=== PATIENT | female | born 1935 | race Caucasian/White ===

== ENCOUNTER 2017-04-05 10:20 | Outpatient (CLI) | payer MEDICARE, OTHER ==
[2017-04-05 14:21] LABS: HEMOGLOBIN A1C 1.01 g/dL
[2017-04-05 14:27] LABS: ALBUMIN/GLOBULIN RATIO 1.4 (1.0-2.2); BILIRUBIN,TOTAL 0.6 mg/dL (0.2-1.0); CALCIUM 9.2 mg/dL (8.5-10.3); CREATININE 0.8 mg/dL (0.4-1.0); POTASSIUM 3.5 mmol/L (3.5-5.0); TOTAL PROTEIN 7.1 g/dL (6.7-8.2)
== END 2017-04-05 10:21 | disposition home or self-care (01) ==
LOC: LAB.WCP 10:20
PROVIDERS: ATTEND Family Medicine
DX: E11.51 Type 2 diabetes mellitus with diabetic peripheral angiopathy without gangrene (principal); E78.00 Pure hypercholesterolemia, unspecified; I10 Essential (primary) hypertension
CPT/HCPCS: 36415; 80053; 83036

== ENCOUNTER 2017-06-07 08:00 | Outpatient (CLI) | payer MEDICARE, OTHER ==
[2017-06-07 13:31] LABS: ALBUMIN/GLOBULIN RATIO 1.3 (1.0-2.2); BILIRUBIN,TOTAL 0.6 mg/dL (0.2-1.0); CALCIUM 9.3 mg/dL (8.5-10.3); CREATININE 0.7 mg/dL (0.4-1.0); POTASSIUM 4.8 mmol/L (3.5-5.0); TOTAL PROTEIN 6.8 g/dL (6.7-8.2)
[2017-06-07 14:06] LABS: HEMOGLOBIN A1C 0.82 g/dL
== END 2017-06-07 08:01 | disposition home or self-care (01) ==
LOC: LAB.WCP 08:00
PROVIDERS: ATTEND Family Medicine
DX: E11.51 Type 2 diabetes mellitus with diabetic peripheral angiopathy without gangrene (principal); I10 Essential (primary) hypertension
CPT/HCPCS: 36415; 80053; 82043; 83036

== ENCOUNTER 2018-03-29 10:20 | Outpatient (CLI) | payer MEDICARE, OTHER ==
[2018-03-29 12:36] LABS: BASOPHILS # (AUTO) 0.1 10^3/uL (0.0-0.1); BASOPHILS % (AUTO) 0.8 %; EOSINOPHILS # (AUTO) 0.2 10^3/uL (0.0-0.7); EOSINOPHILS % (AUTO) 1.7 %; HGB - HEMOGLOBIN 15.5 g/dL (12.0-16.0); LYMPHOCYTES # (AUTO) 2.9 10^3/uL (1.5-3.5); LYMPHOCYTES % (AUTO) 28.1 %; MEAN CORPUSCULAR HEMOGLOBIN 28.4 pg (27.0-31.0); MEAN CORPUSCULAR VOLUME 83.5 fL (81.0-99.0); MEAN PLATELET VOLUME 7.4 fL (7.9-10.8); MONOCYTES # (AUTO) 0.7 10^3/uL (0.0-1.0); NEUTROPHILS # (AUTO) 6.4 10^3/uL (1.5-6.6); NEUTROPHILS % (AUTO) 62.4 %; PLT - PLATELET COUNT 213 10^3/uL (130-450); RED BLOOD COUNT 5.45 10^6/uL (4.20-5.40); RED CELL DISTRIBUTION WIDTH 15.3 % (12.0-15.0); WHITE BLOOD COUNT 10.2 x10^3/uL (4.8-10.8)
[2018-03-29 12:45] LABS: ALBUMIN 4.1 g/dL (3.2-5.5); ALBUMIN/GLOBULIN RATIO 1.4 (1.0-2.2); ALKALINE PHOSPHATASE 95 IU/L (42-121); ALT ALANINE AMINOTRANSFERASE 23 IU/L (10-60); AST ASPARTATE AMINOTRANSFERASE 23 IU/L (10-42); BILIRUBIN,TOTAL 0.7 mg/dL (0.2-1.0); BUN - BLOOD UREA NITROGEN 27 mg/dL (6-20); CALCIUM 9.4 mg/dL (8.5-10.3); CARBON DIOXIDE - CO2 23 mmol/L (21-32); CHLORIDE 105 mmol/L (101-111); CHOL/HDL RATIO 3.6 (<4.4); CHOLESTEROL 207 mg/dL; CREATININE 0.9 mg/dL (0.4-1.0); GFR - MDRD 60 (>89); GLUCOSE 146 mg/dL (70-100); HDL CHOLESTEROL 57 mg/dL; LDL CHOLESTEROL,CALCULATED 119 mg/dL; LDL/HDL RATIO 2.1 (<4.4); SODIUM 140 mmol/L (135-145); VLDL CHOLESTEROL 31 mg/dL
== END 2018-03-29 10:21 | disposition home or self-care (01) ==
LOC: LAB.WCP 10:20
PROVIDERS: ATTEND Family Medicine
DX: M51.86 Other intervertebral disc disorders, lumbar region (principal); E11.51 Type 2 diabetes mellitus with diabetic peripheral angiopathy without gangrene; I10 Essential (primary) hypertension; E03.9 Hypothyroidism, unspecified; I25.10 Atherosclerotic heart disease of native coronary artery without angina pectoris
CPT/HCPCS: 36415; 80053; 80061; 83721; 84443; 85025

== ENCOUNTER 2018-05-11 14:30 | Outpatient (CLI) | payer MEDICARE, OTHER ==
[2018-05-11 19:40] LABS: HB2 TOTAL 15.4 g/dL; HEMOGLOBIN A1C 0.77 g/dL; HEMOGLOBIN A1C % 6.7 % (4.6-6.2)
== END 2018-05-11 14:31 | disposition home or self-care (01) ==
LOC: LAB.WCP 14:30
PROVIDERS: ATTEND Family Medicine
DX: E11.51 Type 2 diabetes mellitus with diabetic peripheral angiopathy without gangrene (principal)
CPT/HCPCS: 36415; 83036

== ENCOUNTER 2018-08-02 15:36 | Outpatient (CLI) | payer MEDICARE, OTHER | END 2018-08-02 15:37 | disposition critical access hospital (66) | LOC: EMS 15:36 | PROVIDERS: ATTEND Surgery | DX: R41.0 Disorientation, unspecified (principal) | CPT/HCPCS: A0425; A0427 ==

== ENCOUNTER 2018-08-02 15:57 | Inpatient (IN) | payer MEDICARE, OTHER ==
--- NOTE | 2018-08-02 16:23 | ED Physician Documentation ---
PD HPI ALTERED MENTAL STATUS - Stated complaint Stated Complaint: AMS - Chief complaint Chief Complaint: Neuro - History obtained from History obtained from: Patient, EMS - History of Present Illness Timing - onset: Unknown (last known normal last night) Timing - details: Gradual onset Quality / character: Less responsive Associated symptoms: No: Fever, Headache, Stiff neck, Dyspnea, Cough, NVD, Urinary sx, General weakness, Focal weakness, Seizure activity, Syncope Contributing factors: No: Anticoagulated, Diabetic, Cancer, COPD, New medication, Recent med change, Recent illness, Recent injury, Intoxicated, Substance abuse, Known psych illness, Known dementia Basline status: Alert and oriented X 3, Ambulatory, Independent, Other (legally blind, uses a walker) 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: 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 (97) Similar symptoms before: Has not had sx before Recently seen: Not recently seen Review of Systems Unable to obtain: AMS Constitutional: denies: Fever, Chills Throat: denies: Sore throat Cardiac: denies: Chest pain / pressure GI: reports: Vomiting (once in the ambulance) : denies: Dysuria Skin: denies: Rash Musculoskeletal: denies: Neck pain, Back pain Neurologic: denies: Headache PD PAST MEDICAL HISTORY - Past Medical History Past Medical History: Yes Endocrine/Autoimmune: Type 2 diabetes, HyPOthyroidism - Present Medications Home Medications: Ambulatory Orders Medication Instructions Recorded Confirmed Aspirin 08/02/18 Atenolol 25 mg PO 08/02/18 Insulin Aspart [NovoLOG] 5 unit SUBQ TIDWM 08/02/18 08/02/18 Insulin Glargine [Lantus Solostar] 08/02/18 Levothyroxine Sodium [Synthroid] 25 mcg PO 08/02/18 Losartan [Cozaar] 50 mg PO DAILY 08/02/18 08/02/18 PARoxetine HCl [Paroxetine HCl] 10 mg PO 08/02/18 08/02/18 Sitagliptin Phosphate [Januvia] 25 mg PO 08/02/18 - Allergies Allergies/Adverse Reactions: Allergies Allergy/AdvReac Type Severity Reaction Status Date / Time No Known Drug Allergies Allergy Verified 08/02/18 16:05 - Living Situation Living Situation: reports: With family Living Arrangement: reports: At home - Social History Does the pt have substance abuse?: No - Family History Family history: reports: Non contributory PD ED PE NORMAL - Vitals Vital signs reviewed: Yes - General General: No acute distress, Other (alert, oriented to person and place only) - HEENT HEENT: PERRL, Moist mucous membranes - Neck Neck: Supple, no meningeal sign - Cardiac Cardiac: RRR - Respiratory Respiratory: No respiratory distress, Clear bilaterally - Abdomen Abdomen: Soft, Non tender, Non distended - Back Back: No spinal TTP - Derm Derm: Warm and dry - Extremities Extremities: No edema - Neuro Neuro: No motor deficit, No sensory deficit, Other (alert) Results - Vitals Vitals: Vital Signs - 24 hr 08/02/18 08/02/18 08/02/18 15:59 17:49 18:07 Temperature 37.3 C Heart Rate 88 77 77 Respiratory 18 16 17 Rate Blood Pressure 178/81 H 190/88 H 168/71 H O2 Saturation 97 97 96 Oxygen O2 Source Room air - Labs Labs: Laboratory Tests 08/02/18 08/02/18 08/02/18 16:20 16:20 16:20 WBC 11.4 H RBC 4.94 Hgb 14.1 Hct 43.0 MCV 87.1 MCH 28.6 MCHC 32.8 RDW 14.7 Plt Count 150 MPV 6.5 L Neut # (Auto) 9.5 H Lymph # (Auto) 1.1 L [place] # (Auto) 0.8 Eos # (Auto) 0.0 Baso # (Auto) 0.1 Absolute Nucleated RBC 0.00 Nucleated RBC % 0.0 Sodium 135 Potassium 4.1 Chloride 98 L Carbon Dioxide 27 Anion Gap 10.0 BUN 23 H Creatinine 0.7 Estimated GFR (MDRD) 80 L Glucose 246 H Glycated Hemoglobin Estim Average Glucose Lactic Acid 2.0 Calcium 8.9 Total Bilirubin 1.3 H AST 28 ALT 28 Alkaline Phosphatase 84 Troponin I Total Protein 6.4 L Albumin 3.8 Globulin 2.6 Albumin/Globulin Ratio 1.5 Lipase 25 TSH Free T4 Urine Color Urine Clarity Urine pH Ur Specific [place] Urine Protein Urine Glucose (UA) Urine Ketones Urine Occult Blood Urine Nitrite Urine Bilirubin Urine Urobilinogen Ur Leukocyte Esterase Urine RBC Urine WBC Ur Squamous Epith Cells Urine Bacteria Ur Microscopic Review Urine Culture Comments 08/02/18 08/02/18 08/02/18 16:20 16:20 16:20 WBC RBC Hgb Hct MCV MCH MCHC RDW Plt Count MPV Neut # (Auto) Lymph # (Auto) [place] # (Auto) Eos # (Auto) Baso # (Auto) Absolute Nucleated RBC Nucleated RBC % Sodium Potassium Chloride Carbon Dioxide Anion Gap BUN Creatinine Estimated GFR (MDRD) Glucose Glycated Hemoglobin 6.9 H Estim Average Glucose 151 H Lactic Acid Calcium Total Bilirubin AST ALT Alkaline Phosphatase Troponin I < 0.04 Total Protein Albumin Globulin Albumin/Globulin Ratio Lipase TSH 9.36 H Free T4 0.97 Urine Color Urine Clarity Urine pH Ur Specific [place] Urine Protein Urine Glucose (UA) Urine Ketones Urine Occult Blood Urine Nitrite Urine Bilirubin Urine Urobilinogen Ur Leukocyte Esterase Urine RBC Urine WBC Ur Squamous Epith Cells Urine Bacteria Ur Microscopic Review Urine Culture Comments 08/02/18 16:53 WBC RBC Hgb Hct MCV MCH MCHC RDW Plt Count MPV Neut # (Auto) Lymph # (Auto) [place] # (Auto) Eos # (Auto) Baso # (Auto) Absolute Nucleated RBC Nucleated RBC % Sodium Potassium Chloride Carbon Dioxide Anion Gap BUN Creatinine Estimated GFR (MDRD) Glucose Glycated Hemoglobin Estim Average Glucose Lactic Acid Calcium Total Bilirubin AST ALT Alkaline Phosphatase Troponin I Total Protein Albumin Globulin Albumin/Globulin Ratio Lipase TSH Free T4 Urine Color DARK YELLOW Urine Clarity HAZY Urine pH 5.5 Ur Specific [place] >=1.030 H Urine Protein NEGATIVE Urine Glucose (UA) 500 H Urine Ketones 15 H Urine Occult Blood NEGATIVE Urine Nitrite POSITIVE H Urine Bilirubin NEGATIVE Urine Urobilinogen 0.2 (NORMAL) Ur Leukocyte Esterase NEGATIVE Urine RBC 0-5 Urine WBC 4-5 Ur Squamous Epith Cells RARE Squamous Urine Bacteria Many H Ur Microscopic Review INDICATED Urine Culture Comments INDICATED - Rads (name of study) head CT Radiology: Prelim report reviewed, EMP read contemporaneously, See rad report (Intermediate density 3.1 cm mass suggested in the right occipital parietal lobe with minor surrounding vasogenic edema. No midline shift. Appearance is nonspecific on CT. MRI with and without contrast suggested for more definitive evaluation. 2. Cystic change in the right anoop presumably related to old lacunar infarct. 3. Moderate senescent changes seen. ) PD MEDICAL DECISION MAKING - ED course Complexity details: reviewed results, re-evaluated patient, considered differential, d/w patient, d/w family, d/w product consultant ED course: 83-year-old female presents to the emergency department today with altered mental status. Appears to be likely secondary to a UTI with leukocytosis. Given Rocephin and IV fluids. Her mental status did improve. Head CT reveals a possible Occipital intracranial mass. I doubt that this is the cause of her acutely altered mental status. This will be better characterized on MRI. Family states they are unsure if she would want to do chemotherapy and surgery if it was a cancerous tumor. Discussed the case with Dr. Melgar, hospitalist who accepts This document was made in part using voice recognition software. While efforts are made to proofread this document, sound alike and grammatical errors may occur. Departure - Departure Disposition: [facility] DC/Xfer Clinical Impression: Brain mass Altered mental status Qualifiers: Altered mental status type: unspecified Qualified Code(s): R41.82 - Altered mental status, unspecified UTI (urinary tract infection) Qualifiers: Urinary tract infection type: site unspecified Hematuria presence: without hematuria Qualified Code(s): N39.0 - Urinary tract infection, site not specified Condition: Stable Discharge Date/Time: 08/02/18 19:30
[2018-08-02 16:31] LABS: BASOPHILS # (AUTO) 0.1 10^3/uL (0.0-0.1); BASOPHILS % (AUTO) 0.5 %; EOSINOPHILS % (AUTO) 0.1 %; HGB - HEMOGLOBIN 14.1 g/dL (12.0-16.0); LYMPHOCYTES # (AUTO) 1.1 10^3/uL (1.5-3.5); LYMPHOCYTES % (AUTO) 9.2 %; MEAN CORPUSCULAR HEMOGLOBIN 28.6 pg (27.0-31.0); MEAN CORPUSCULAR HGB CONC 32.8 g/dL (32.0-36.0); MEAN CORPUSCULAR VOLUME 87.1 fL (81.0-99.0); MEAN PLATELET VOLUME 6.5 fL (7.9-10.8); MONOCYTES # (AUTO) 0.8 10^3/uL (0.0-1.0); MONOCYTES % (AUTO) 7.1 %; NEUTROPHILS # (AUTO) 9.5 10^3/uL (1.5-6.6); NEUTROPHILS % (AUTO) 83.1 %; PLT - PLATELET COUNT 150 10^3/uL (130-450); RED BLOOD COUNT 4.94 10^6/uL (4.20-5.40); RED CELL DISTRIBUTION WIDTH 14.7 % (12.0-15.0); WHITE BLOOD COUNT 11.4 x10^3/uL (4.8-10.8)
[2018-08-02 16:45] LABS: ALBUMIN 3.8 g/dL (3.2-5.5); ALBUMIN/GLOBULIN RATIO 1.5 (1.0-2.2); BILIRUBIN,TOTAL 1.3 mg/dL (0.2-1.0); CALCIUM 8.9 mg/dL (8.5-10.3); CREATININE 0.7 mg/dL (0.4-1.0); TOTAL PROTEIN 6.4 g/dL (6.7-8.2)
[2018-08-02 17:05] LABS: BILIRUBIN,URINE NEGATIVE (NEGATIVE); GLUCOSE, URINE (UA) 500 mg/dL (NEGATIVE); KETONES,URINE (UA) 15 mg/dL (NEGATIVE); LEUKOCYTE ESTERASE, URINE NEGATIVE (NEGATIVE); NITRITE,URINE POSITIVE (NEGATIVE); OCCULT BLOOD,URINE NEGATIVE (NEGATIVE); PH,URINE 5.5 PH (5.0-7.5); PROTEIN,URINE NEGATIVE (NEGATIVE); UROBILINOGEN,URINE 0.2 (NORMAL) E.U./dL (NORMAL)
[2018-08-02 17:07] LABS: CLARITY,URINE HAZY (CLEAR)
[2018-08-02 17:07] LABS: THYROID STIMULATING HORMONE 9.36 uIU/mL (0.34-5.60)
[2018-08-02 17:09] LABS: FREE T4 (FREE THYROXINE) 0.97 ng/dL (0.58-1.64)
[2018-08-02 17:16] LABS: BACTERIA,URINE Many /HPF (None Seen); RBC,URINE 0-5 /HPF (0-5); SQUAMOUS EPITHELIAL CELL,UR RARE Squamous (<= Few)
--- NOTE | 2018-08-02 17:36 | CT Report ---
Reason: altered mental status Procedure Date: 08/02/2018 Accession Number: [id number] / [id number] Procedure: CT - Head W/O CPT Code: FULL RESULT: EXAM: CT HEAD EXAM DATE: 08/02/2018 05:17 PM. CLINICAL HISTORY: Transient alteration in awareness. COMPARISON: None. TECHNIQUE: Multiaxial CT images were obtained from the foramen magnum to the vertex. Reformats: Sagittal and coronal. IV contrast: None. In accordance with CT protocol optimization, one or more of the following dose reduction techniques were utilized for this exam: automated exposure control, adjustment of mA and/or KV based on patient size, or use of iterative reconstructive technique. FINDINGS: Parenchyma: There is an intermediate density mass like process suggested in the right occipital parietal lobe measuring 3.1 x 2.7 cm. It is unclear if the mass is intra-axial or extra-axial. Some minor surrounding cytotoxic edema is seen superimposed over diffuse chronic microvascular ischemic changes. Cystic changes seen in the right anoop which may be related to old lacunar infarct. The remainder parrish-white differentiation is intact. There is no midline shift. Extraaxial Spaces: Normal for age. No subdural or epidural collections identified. Ventricles: Normal in size and position. Sinuses and Orbits: Imaged paranasal sinuses, orbits, and mastoids show no significant abnormality. Bones: No evidence of fracture or calvarial defect. Other: None. IMPRESSION: 1. Intermediate density 3.1 cm mass suggested in the right occipital parietal lobe with minor surrounding vasogenic edema. No midline shift. Appearance is nonspecific on CT. MRI with and without contrast suggested for more definitive evaluation. 2. Cystic change in the right anoop presumably related to old lacunar infarct. 3. Moderate senescent changes seen. RADIA
[2018-08-02] MEDS ORDERED: cefTRIAXone 1 GM VIAL IVP STA (17:42)
[2018-08-02] MEDS ORDERED: ONDANSETRON 4 MG/2 ML VIAL IVP PRN (18:43)
[2018-08-02] MEDS ORDERED: ACETAMINOPHEN 325 MG TABLET PO PRN ×2 (18:43→21:13)
[2018-08-02] MEDS ORDERED: cloNIDine 0.1 MG TABLET PO PRN (18:49)
[2018-08-02] MEDS ORDERED: SODIUM CHLORIDE 0.9% 1,000 ML IV SCH (19:00)
--- NOTE | 2018-08-02 19:14 | HISTORY & PHYSICAL EXAMINATION ---
Chief Complaint - Chief Complaint Chief Complaint: confused History of Present Illness - History of Present Illness HPI Comment/Other: Ms Aviles is a 83-year-old female with a PMH significant for hx of CAD with stent, TIA, HTN, hypothyroidism, DM2, obese, who presents to the emergency department today with altered mental status. Pt is confused, and poor historian. Pt's daughter in law at bedside provide some history. She report pt became very confused recently. She has no headache, fever, chill, chest pain, shortness of breath, abdominal pain. UA reveal UTI. Head CT reveals a possible Occipital intracranial mass. She report they has no knowledge of pt has mass in her brain. This will be better characterized on MRI. Daughter in law states" we are unsure if she would want to do chemotherapy and surgery even if it was a cancerous tumor." Pt is afebrile, and has slight elevated blood pressure otherwise she is hemodynamic stable. History - Past Medical History Cardiovascular: reports: Hypertension, [place] Respiratory: reports: None Neuro: reports: TIA Endocrine/Autoimmune: reports: Type 2 diabetes, HyPOthyroidism GI: reports: Chronic diarrhea, Chronic constipation SHANK TURNER: reports: None : reports: Incontinence HEENT: reports: Macular degeneration Musculoskeletal: reports: Osteoarthritis Derm: reports: None MRSA Hx?: No - Past Surgical History General: reports: Cholecystectomy, Appendectomy, Colonoscopy Ortho: reports: Hip replacement, Other /SHANK TURNER: reports: section, Hysterectomy Cardiovascular: reports: Coronary stent HEENT: reports: Tonsil/Adenoidectomy - Family & Social History Family History: Mother: , Father: Family History Comment/Other: pt is living at her home with his son at [facility]. Living arrangement: At home Living Situation: With family - POLST Patient has POLST: Yes POLST Status: DNR Meds/Allgy - Home Medications Home Medications: Ambulatory Orders Medication Instructions Recorded Confirmed Aspirin 08/02/18 Atenolol 25 mg PO 08/02/18 Insulin Aspart [NovoLOG] 5 unit SUBQ TIDWM 08/02/18 08/02/18 Insulin Glargine [Lantus Solostar] 08/02/18 Levothyroxine Sodium [Synthroid] 25 mcg PO 08/02/18 Losartan [Cozaar] 50 mg PO DAILY 08/02/18 08/02/18 PARoxetine HCl [Paroxetine HCl] 10 mg PO 08/02/18 08/02/18 Sitagliptin Phosphate [Januvia] 25 mg PO 08/02/18 - Allergies Allergies/Adverse Reactions: Allergies Allergy/AdvReac Type Severity Reaction Status Date / Time No Known Drug Allergies Allergy Verified 08/02/18 16:05 Review of Systems - Constitutional Constitutional: denies: Fever, Chills, Poor appetite, Diaphoresis, Night sweats - Eyes Eyes: denies: Pain, Irritation, Blurred vision, Field loss, Vision loss, Dipolpia - Ears, Nose & Throat Ears, Nose & Throat: denies: Ear pain, Hearing loss, Tinnitus, Vertigo, Nosebleeds, Nasal congestion, Sore throat, Bleeding gums - Cardiovascular Cariovascular: denies: Irregular heart rate, Palpitations, Chest pain, Edema, Lightheadedness, Syncope, Exertional dyspnea, Decr. exercise tolerance - Respiratory Respiratory: denies: Cough, Sputum production, Wheezing, Snoring, Hemoptysis, Orthopnea, SOB at rest, SOB with exertion - Gastrointestinal Gastrointestinal: denies: Abdominal pain, Abdominal distention, Constipation, Diarrhea, Change in bowel habits, Rectal bleeding, Black stools, Bloody stools, Nausea, Vomiting, Coffee grounds emesis - Genitourinary Genitourinary: denies: Dysuria, Frequency, Urgency, Hematuria, Incontinence, Flank pain, Urethral discharge - Musculoskeletal Musculoskeletal: denies: Muscle pain, Back pain, Muscle aches, Stiffness, Limited range of motion, Muscle weakness, Gout, Joint pain - Integumentary Integumentary: denies: Rash, Pruritis, Lesions, Dryness, Lumps, Pigment changes - Neurological Neurological: reports: General weakness. denies: Focal weakness, Headache, Dizziness, Numbness, Memory problems, Pre-existing deficit, Abnormal gait, Seizures, Incoordination, Slurred speech - Psychiatric Psychiatric: denies: Depression, Anxiety, Suicidal, Delusions, Hallucinations - Endocrine Endocrine: denies: Polyuria, Polydypsia, Polyphagia, Intolerance to cold - Hematologic/Lymphatic Hematologic/Lymphatic: denies: Anemia, Bruising, Petechiae, Lymphadenopathy Prior Level of Functionality: [pt is living with her son Exam - Vital Signs Reviewed Vital Signs: Yes Vital Signs: Vital Signs x48h Temp Pulse Resp BP Pulse Ox 08/02/18 18:07 77 17 168/71 H 96 08/02/18 17:49 77 16 190/88 H 97 08/02/18 15:59 37.3 C 88 18 178/81 H 97 - Physical Exam General Appearance: positive: No acute distress, Alert. negative: Lethargic Eyes Bilateral: positive: Normal inspection, PERRL, No lid inflammation, Conjunctivae nml ENT: positive: ENT inspection nml, Pharynx nml, No signs of dehydration. negative: Purulent nasal drainage, Pharyngeal erythema, Oral lesions Neck: positive: Nml inspection, Thyroid nml, No JVD, Trachea midline. negative: Thyromegaly, Lymphadenopathy (R), Lymphadenopathy (L), Stiff neck, Swelling/bruising, Tracheal deviation Respiratory: positive: Chest non-tender, No respiratory distress, Breath sounds nml. negative: Wheezes, Rales, Rhonchi Cardiovascular: positive: Regular rate & rhythm, No murmur, No gallop. negative: Irregularly irregular, Extrasystoles, Tachycardia, Bradycardia, JVD present, Systolic murmur, Diastolic murmur Peripheral Pulses: positive: 2+ Abdomen: positive: Non-tender, No organomegaly, Nml bowel sounds, No distention. negative: Tenderness, Guarding, Rebound Back: positive: Nml inspection. negative: CVA tenderness (R), CVA tenderness (L) Skin: positive: Color nml, No rash, Warm, Dry. negative: Cyanosis, Diaphoresis, Pallor Extremities: positive: Non-tender, Nml appearance. negative: Calf tenderness, Joint swelling, Juliana's sign/cords Neurologic/Psychiatric: positive: Disoriented to person, Disoriented to place, Disoriented to time. negative: Weakness, Sensory loss, Facial droop, Slurred/abnml speech, Depressed mood/affect Sepsis Event Note (H) - Evaluation Current Stage of Sepsis: Sepsis Possible source of Sepsis: positive: Genitourinary - Sepsis Criteria Sepsis Criteria: WBC count greater than 12,000 or less than 4000, HERPETOLOGIST: altered consciousness (unrelated to primary neuro pathology) Conclusion/Plan - Problem List (1) Altered mental status Conclusion/Plan: pt present acute AMS, it may be secondary to positive UTI and elevated WBC. However CT of head also reveals 3.1 cm brain Mass, it seems chronic and quite long time medical condition even pt's family did not know this before. treat under UTI with Rocephin, followup UA culture. neur check tele, vital monitor MRI of brain Qualifiers: Altered mental status type: unspecified Qualified Code(s): R41.82 - Altered mental status, unspecified (2) UTI (urinary tract infection) Conclusion/Plan: will treat with antibiotics of Rocephin, and followup UA culture and sensitivity study. Qualifiers: Urinary tract infection type: site unspecified Hematuria presence: without hematuria Qualified Code(s): N39.0 - Urinary tract infection, site not specified (3) Brain mass Conclusion/Plan: family is unknown pt has this medical condition, and unsure they will continue pursue further intervention even if it is odd result MRI of brain, will followup and discuss with pt and pt's family (4) HTN (hypertension) Conclusion/Plan: slight elevated BP, family state pt may not take her home BP meds pharmacy will reconcile home BP meds, add Clonidine as PRN (5) DM2 (diabetes mellitus, type 2) Conclusion/Plan: slight elevated blood glucose, pharmacy will reconcile home insulin slide scale, check A1C hypoglycemia, and ACHS (6) Hypothyroidism Conclusion/Plan: elevate TSH, will check T4, and reconcile home synthyroxine (7) Hx of coronary artery disease Conclusion/Plan: Troponin is negative, no chest pain reported. tele, vital monitor resume home Aspirin control of BP (8) Do not intubate, cardiopulmonary resuscitation (CPR)-only code status Conclusion/Plan: pt's family clearly state pt is DNR status - Lab Results Fish Bones: 08/03/18 05:30 08/03/18 05:30 Core Measures - Anticipated LOS I expect patient to be DC'd or transferred within 96 hours.: Yes - DVT/VTE - Prophylaxis VTE/DVT Device ordered at admit?: Yes VTE/DVT Prophylaxis med ordered at admit?: Yes
[2018-08-02 19:16] LABS: HB2 TOTAL 15.1 g/dL; HEMOGLOBIN A1C 0.79 g/dL; HEMOGLOBIN A1C % 6.9 % (4.6-6.2)
[2018-08-02] MEDS: SODIUM CHLORIDE FLUSH 0.9% 10 ML SYRINGE IVP PRN (20:47)
[2018-08-02] MEDS ORDERED: FAMOTIDINE 20 MG TABLET PO SCH (21:00)
[2018-08-02] MEDS ORDERED: INSULIN ASPART 300 UNIT/3 ML PEN SUBQ SCH (21:00)
[2018-08-02] MEDS ORDERED: INSULIN GLARGINE 300 UNIT/3 ML PEN SUBQ SCH (21:00)
[2018-08-02] MEDS: LOSARTAN 50 MG TABLET PO SCH (21:18)
[2018-08-02] MEDS: NYSTATIN POWDER 15 GM TOP SCH (22:26)
[2018-08-02] MEDS ORDERED: MIN OIL/DIMETHICON/COCONUT OIL 92 GM TUBE TOP PRN (23:27)
[2018-08-03] MEDS: SODIUM CHLORIDE FLUSH 0.9% 10 ML SYRINGE IVP SCH ×3 (01:21→16:25)
[2018-08-03 05:56] LABS: BASOPHILS # (AUTO) 0.1 10^3/uL (0.0-0.1); BASOPHILS % (AUTO) 0.5 %; EOSINOPHILS % (AUTO) 0.1 %; HGB - HEMOGLOBIN 13.1 g/dL (12.0-16.0); LYMPHOCYTES # (AUTO) 1.7 10^3/uL (1.5-3.5); LYMPHOCYTES % (AUTO) 16.2 %; MEAN CORPUSCULAR HEMOGLOBIN 29.2 pg (27.0-31.0); MEAN CORPUSCULAR HGB CONC 33.4 g/dL (32.0-36.0); MEAN CORPUSCULAR VOLUME 87.5 fL (81.0-99.0); MEAN PLATELET VOLUME 6.4 fL (7.9-10.8); MONOCYTES # (AUTO) 0.8 10^3/uL (0.0-1.0); MONOCYTES % (AUTO) 7.9 %; NEUTROPHILS # (AUTO) 7.9 10^3/uL (1.5-6.6); NEUTROPHILS % (AUTO) 75.3 %; PLT - PLATELET COUNT 166 10^3/uL (130-450); RED BLOOD COUNT 4.47 10^6/uL (4.20-5.40); RED CELL DISTRIBUTION WIDTH 14.5 % (12.0-15.0); WHITE BLOOD COUNT 10.5 x10^3/uL (4.8-10.8)
[2018-08-03 06:06] LABS: ALBUMIN 3.3 g/dL (3.2-5.5); ALBUMIN/GLOBULIN RATIO 1.5 (1.0-2.2); BILIRUBIN,TOTAL 1.4 mg/dL (0.2-1.0); CALCIUM 8.5 mg/dL (8.5-10.3); CREATININE 0.7 mg/dL (0.4-1.0); MAGNESIUM 1.7 mg/dL (1.7-2.8); TOTAL PROTEIN 5.5 g/dL (6.7-8.2)
[2018-08-03] MEDS ORDERED: LEVOTHYROXINE 25 MCG TABLET PO SCH (07:00)
[2018-08-03] MEDS: LOSARTAN 50 MG TABLET PO SCH (08:33)
[2018-08-03] MEDS: NYSTATIN POWDER 15 GM TOP SCH ×2 (08:33→20:11)
[2018-08-03] MEDS: FAMOTIDINE 20 MG TABLET PO SCH (08:33)
[2018-08-03] MEDS: ENOXAPARIN 40 MG/0.4 ML SYRINGE SUBQ SCH (08:33)
[2018-08-03] MEDS: POLYETHYLENE GLYCOL 3350 17 GM PACKET PO SCH (08:33)
[2018-08-03] MEDS: INSULIN ASPART 300 UNIT/3 ML PEN SUBQ SCH ×4 (08:34→20:36)
[2018-08-03] MEDS ORDERED: cefTRIAXone 1 GM VIAL IVP SCH (09:00)
[2018-08-03] MEDS ORDERED: SODIUM CHLORIDE 0.9% 1,000 ML IV SCH (09:00)
[2018-08-03] MEDS ORDERED: LOSARTAN 50 MG TABLET PO SCH (09:00)
--- NOTE | 2018-08-03 09:22 | XRAY Report ---
Reason: SOB Procedure Date: 08/03/2018 Accession Number: [id number] / [id number] Procedure: XR - Chest 1 View X-Ray CPT Code: 88778 FULL RESULT: EXAM: CHEST RADIOGRAPHY EXAM DATE: 08/03/2018 08:52 AM. CLINICAL HISTORY: Shortness of breath. COMPARISON: None. TECHNIQUE: 1 view. FINDINGS: Lungs/Pleura: Mild pulmonary vascular congestion. Mild interstitial edema. The right costophrenic recess is sharp. The left costophrenic recess is blunted. No pneumothorax. No focal opacities evident. Mediastinum: Within exam limitations, the cardiomediastinal contour is normal. Other: Multilevel thoracic spondylosis. Degenerative changes in the acromioclavicular joints. IMPRESSION: 1. Mild pulmonary vascular congestion and mild interstitial edema. 2. No focal bronchial consolidation. 3. Other chronic degenerative changes. RADIA
[2018-08-03] MEDS: CEFEPIME 2 GM in SODIUM CHLORIDE 0.9% MINIBAG 100 ML IV SCH ×2 (10:58→20:11)
--- NOTE | 2018-08-03 11:12 | PROVIDER PROGRESS NOTE ---
Subjective - Prog Note Date Prog Note Date: 08/03/18 - Subjective Pt reports feeling: Worse Subjective: pt is still confused. pt also has fever today morning. family report pt is not better. pt is not reported to have chest pain, shortness of breath, headache. Current Medications - Current Medications Current Medications: Active Medications Acetaminophen (Tylenol) 650 mg PO Q4HR PRN PRN Reason: Pain or Fever > 38C (100.4F) Clonidine HCl (Catapres) 0.1 mg PO BID PRN PRN Reason: Hypertensive Emergency Enoxaparin Sodium (Lovenox) 40 mg SUBQ DAILY [facility] Last Admin: 08/03/18 08:33 Dose: 40 mg Famotidine (Pepcid) 20 mg PO DAILY [facility] Last Admin: 08/03/18 08:33 Dose: 20 mg Cefepime HCl 2 gm/ Sodium (Chloride) 100 mls @ 200 mls/hr IV BID [facility] Last Admin: 08/03/18 10:58 Dose: 200 mls/hr Insulin Aspart (Novolog) 2 - 10 unit SUBQ 0800,1200,1700,2100 [facility]; Protocol Last Admin: 08/03/18 08:34 Dose: 4 unit Insulin Glargine (Lantus Solostar) 10 unit SUBQ QPM [facility] Levothyroxine Sodium (Synthroid) 37.5 mcg PO QDAC [facility] Losartan Potassium (Cozaar) 50 mg PO DAILY [facility] Last Admin: 08/03/18 08:33 Dose: 50 mg Mineral Oil (Cavilon) 1 applic TOP PRN PRN PRN Reason: Skin Care Nystatin (Nystop) 0 applic TOP BID [facility] Last Admin: 08/03/18 08:33 Dose: 1 applic Ondansetron HCl (Zofran Inj) 4 mg IVP Q6HR PRN PRN Reason: Nausea / Vomiting Polyethylene Glycol (Miralax) 17 gm PO DAILY [facility] Last Admin: 08/03/18 08:33 Dose: 17 gm Saccharomyces Boulardii (Florastor) 250 mg PO BIDWM [facility] Sodium Chloride (Normal Saline Flush 0.9%) 10 ml IVP PRN PRN PRN Reason: NEEDED PER PROVIDER ORDERS Last Admin: 08/02/18 20:47 Dose: 10 ml Sodium Chloride (Normal Saline Flush 0.9%) 10 ml IVP 0100,0900,1700 [facility] Last Admin: 08/03/18 08:33 Dose: Not Given Aspirin 08/02/18 Atenolol 25 mg PO 08/02/18 Insulin Aspart [NovoLOG] 5 unit SUBQ TIDWM 08/02/18 Insulin Glargine [Lantus Solostar] 08/02/18 Levothyroxine Sodium [Synthroid] 25 mcg PO 08/02/18 Losartan [Cozaar] 50 mg PO DAILY 08/02/18 PARoxetine HCl [Paroxetine HCl] 10 mg PO 08/02/18 Sitagliptin Phosphate [Januvia] 25 mg PO 08/02/18 Objective - Vital Signs/Intake & Output Reviewed Vital Signs: Yes Vital Signs: Vital Signs x48h Temp Pulse Resp BP Pulse Ox 08/03/18 08:13 38.1 C H 84 20 139/42 H 93 08/03/18 04:30 37.2 C 86 16 137/41 H 95 Intake & Output: Intake & Output 07/31/18 08/01/18 08/02/18 08/03/18 23:59 23:59 23:59 23:59 Intake Total 1360 Output Total 300 500 Balance -300 860 - Objective General Appearance: positive: No acute distress, Alert. negative: Lethargic Eyes Bilateral: positive: Normal inspection, PERRL, No lid inflammation, Conj unctivae nml ENT: positive: ENT inspection nml, Pharynx nml, No signs of dehydration. negative: Purulent nasal drainage, Pharyngeal erythema, Oral lesions Neck: positive: Nml inspection, Thyroid nml, No JVD, Trachea midline. negative: Thyromegaly, Lymphadenopathy (R), Lymphadenopathy (L), Stiff neck, Swelling/bruising, Tracheal deviation Respiratory: positive: Chest non-tender, No respiratory distress, Breath sounds nml. negative: Wheezes, Rales, Rhonchi Cardiovascular: positive: Regular rate & rhythm, No murmur, No gallop. negative: Irregularly irregular, Extrasystoles, Tachycardia, Bradycardia, JVD present, Systolic murmur, Diastolic murmur Peripheral Pulses: 2+ Radial (R), 2+ Radial (L), 2+ Dorsalis pedis (R), 2+ Dorsalis pedis (L) Abdomen: positive: Non-tender, No organomegaly, Nml bowel sounds, No distention. negative: Tenderness, Guarding, Rebound Back: positive: Nml inspection. negative: CVA tenderness (R), CVA tenderness (L) Skin: positive: Color nml, No rash, Warm, Dry. negative: Cyanosis, Diaphoresis, Pallor Extremities: positive: Non-tender, Nml appearance. negative: Calf tenderness, Joint swelling, Juliana's sign/cords Neurologic/Psychiatric: positive: Mood/affect nml. negative: Weakness, Sensory loss, Facial droop, Slurred/abnml speech, Depressed mood/affect - Lab Results Fish Bones: 08/03/18 05:30 08/03/18 05:30 Other Labs: Lab Results x24hrs 08/03/18 08/03/18 08/02/18 Range/Units 05:30 05:30 16:53 WBC 10.5 (4.8-10.8) x10^3/uL RBC 4.47 (4.20-5.40) 10^6/uL Hgb 13.1 (12.0-16.0) g/dL Hct 39.1 (37.0-47.0) % MCV 87.5 (81.0-99.0) fL MCH 29.2 (27.0-31.0) pg MCHC 33.4 (32.0-36.0) g/dL RDW 14.5 (12.0-15.0) % Plt Count 166 (130-450) 10^3/uL MPV 6.4 L (7.9-10.8) fL Neut # (Auto) 7.9 H (1.5-6.6) 10^3/uL Lymph # (Auto) 1.7 (1.5-3.5) 10^3/uL [place] # (Auto) 0.8 (0.0-1.0) 10^3/uL Eos # (Auto) 0.0 (0.0-0.7) 10^3/uL Baso # (Auto) 0.1 (0.0-0.1) 10^3/uL Absolute Nucleated RBC 0.00 x10^3/uL Nucleated RBC % 0.0 /100WBC Sodium 136 (135-145) mmol/L Potassium 3.9 (3.5-5.0) mmol/L Chloride 99 L (101-111) mmol/L Carbon Dioxide 25 (21-32) mmol/L Anion Gap 12.0 (6-13) BUN 19 (6-20) mg/dL Creatinine 0.7 (0.4-1.0) mg/dL Estimated GFR (MDRD) 80 L (>89) Glucose 228 H (70-100) mg/dL Glycated Hemoglobin (4.6-6.2) % Estim Average Glucose (70-100) Lactic Acid (0.5-2.2) mmol/L Calcium 8.5 (8.5-10.3) mg/dL Magnesium 1.7 (1.7-2.8) mg/dL Total Bilirubin 1.4 H (0.2-1.0) mg/dL AST 26 (10-42) IU/L ALT 30 (10-60) IU/L Alkaline Phosphatase 78 (42-121) IU/L Troponin I (<0.49) ng/mL Total Protein 5.5 L (6.7-8.2) g/dL Albumin 3.3 (3.2-5.5) g/dL Globulin 2.2 (2.1-4.2) g/dL Albumin/Globulin Ratio 1.5 (1.0-2.2) Lipase (22-51) U/L TSH (0.34-5.60) uIU/mL Free T4 (0.58-1.64) ng/dL Urine Color DARK YELLOW Urine Clarity HAZY (CLEAR) Urine pH 5.5 (5.0-7.5) PH Ur Specific [place] >=1.030 H (1.002-1.030) Urine Protein NEGATIVE (NEGATIVE) mg/dL Urine Glucose (UA) 500 H (NEGATIVE) mg/dL Urine Ketones 15 H (NEGATIVE) mg/dL Urine Occult Blood NEGATIVE (NEGATIVE) Urine Nitrite POSITIVE H (NEGATIVE) Urine Bilirubin NEGATIVE (NEGATIVE) Urine Urobilinogen 0.2 (NORMAL) (NORMAL) E.U./dL Ur Leukocyte Esterase NEGATIVE (NEGATIVE) Urine RBC 0-5 (0-5) /HPF Urine WBC 4-5 (0-5) /HPF Ur Squamous Epith Cells RARE Squamous (<= Few) Urine Bacteria Many H (None Seen) /HPF Ur Microscopic Review INDICATED Urine Culture Comments INDICATED 08/02/18 08/02/18 08/02/18 Range/Units 16:20 16:20 16:20 WBC (4.8-10.8) x10^3/uL RBC (4.20-5.40) 10^6/uL Hgb (12.0-16.0) g/dL Hct (37.0-47.0) % MCV (81.0-99.0) fL MCH (27.0-31.0) pg MCHC (32.0-36.0) g/dL RDW (12.0-15.0) % Plt Count (130-450) 10^3/uL MPV (7.9-10.8) fL Neut # (Auto) (1.5-6.6) 10^3/uL Lymph # (Auto) (1.5-3.5) 10^3/uL [place] # (Auto) (0.0-1.0) 10^3/uL Eos # (Auto) (0.0-0.7) 10^3/uL Baso # (Auto) (0.0-0.1) 10^3/uL Absolute Nucleated RBC x10^3/uL Nucleated RBC % /100WBC Sodium (135-145) mmol/L Potassium (3.5-5.0) mmol/L Chloride (101-111) mmol/L Carbon Dioxide (21-32) mmol/L Anion Gap (6-13) BUN (6-20) mg/dL Creatinine (0.4-1.0) mg/dL Estimated GFR (MDRD) (>89) Glucose (70-100) mg/dL Glycated Hemoglobin 6.9 H (4.6-6.2) % Estim Average Glucose 151 H (70-100) Lactic Acid (0.5-2.2) mmol/L Calcium (8.5-10.3) mg/dL Magnesium (1.7-2.8) mg/dL Total Bilirubin (0.2-1.0) mg/dL AST (10-42) IU/L ALT (10-60) IU/L Alkaline Phosphatase (42-121) IU/L Troponin I < 0.04 (<0.49) ng/mL Total Protein (6.7-8.2) g/dL Albumin (3.2-5.5) g/dL Globulin (2.1-4.2) g/dL Albumin/Globulin Ratio (1.0-2.2) Lipase (22-51) U/L TSH 9.36 H (0.34-5.60) uIU/mL Free T4 0.97 (0.58-1.64) ng/dL Urine Color Urine Clarity (CLEAR) Urine pH (5.0-7.5) PH Ur Specific [place] (1.002-1.030) Urine Protein (NEGATIVE) mg/dL Urine Glucose (UA) (NEGATIVE) mg/dL Urine Ketones (NEGATIVE) mg/dL Urine Occult Blood (NEGATIVE) Urine Nitrite (NEGATIVE) Urine Bilirubin (NEGATIVE) Urine Urobilinogen (NORMAL) E.U./dL Ur Leukocyte Esterase (NEGATIVE) Urine RBC (0-5) /HPF Urine WBC (0-5) /HPF Ur Squamous Epith Cells (<= Few) Urine Bacteria (None Seen) /HPF Ur Microscopic Review Urine Culture Comments 08/02/18 08/02/18 08/02/18 Range/Units 16:20 16:20 16:20 WBC 11.4 H (4.8-10.8) x10^3/uL RBC 4.94 (4.20-5.40) 10^6/uL Hgb 14.1 (12.0-16.0) g/dL Hct 43.0 (37.0-47.0) % MCV 87.1 (81.0-99.0) fL MCH 28.6 (27.0-31.0) pg MCHC 32.8 (32.0-36.0) g/dL RDW 14.7 (12.0-15.0) % Plt Count 150 (130-450) 10^3/uL MPV 6.5 L (7.9-10.8) fL Neut # (Auto) 9.5 H (1.5-6.6) 10^3/uL Lymph # (Auto) 1.1 L (1.5-3.5) 10^3/uL [place] # (Auto) 0.8 (0.0-1.0) 10^3/uL Eos # (Auto) 0.0 (0.0-0.7) 10^3/uL Baso # (Auto) 0.1 (0.0-0.1) 10^3/uL Absolute Nucleated RBC 0.00 x10^3/uL Nucleated RBC % 0.0 /100WBC Sodium 135 (135-145) mmol/L Potassium 4.1 (3.5-5.0) mmol/L Chloride 98 L (101-111) mmol/L Carbon Dioxide 27 (21-32) mmol/L Anion Gap 10.0 (6-13) BUN 23 H (6-20) mg/dL Creatinine 0.7 (0.4-1.0) mg/dL Estimated GFR (MDRD) 80 L (>89) Glucose 246 H (70-100) mg/dL Glycated Hemoglobin (4.6-6.2) % Estim Average Glucose (70-100) Lactic Acid 2.0 (0.5-2.2) mmol/L Calcium 8.9 (8.5-10.3) mg/dL Magnesium (1.7-2.8) mg/dL Total Bilirubin 1.3 H (0.2-1.0) mg/dL AST 28 (10-42) IU/L ALT 28 (10-60) IU/L Alkaline Phosphatase 84 (42-121) IU/L Troponin I (<0.49) ng/mL Total Protein 6.4 L (6.7-8.2) g/dL Albumin 3.8 (3.2-5.5) g/dL Globulin 2.6 (2.1-4.2) g/dL Albumin/Globulin Ratio 1.5 (1.0-2.2) Lipase 25 (22-51) U/L TSH (0.34-5.60) uIU/mL Free T4 (0.58-1.64) ng/dL Urine Color Urine Clarity (CLEAR) Urine pH (5.0-7.5) PH Ur Specific [place] (1.002-1.030) Urine Protein (NEGATIVE) mg/dL Urine Glucose (UA) (NEGATIVE) mg/dL Urine Ketones (NEGATIVE) mg/dL Urine Occult Blood (NEGATIVE) Urine Nitrite (NEGATIVE) Urine Bilirubin (NEGATIVE) Urine Urobilinogen (NORMAL) E.U./dL Ur Leukocyte Esterase (NEGATIVE) Urine RBC (0-5) /HPF Urine WBC (0-5) /HPF Ur Squamous Epith Cells (<= Few) Urine Bacteria (None Seen) /HPF Ur Microscopic Review Urine Culture Comments ABX Reporting Has patient been on IV antibiotics over the past 48 hours?: Yes Sepsis Event Note (H) - Evaluation Current Stage of Sepsis: Sepsis Possible source of Sepsis: positive: Genitourinary - Sepsis Criteria Sepsis Criteria: WBC count greater than 12,000 or less than 4000, PROPOSAL EDITOR: altered consciousness (unrelated to primary neuro pathology) Assessment/Plan - Problem List (1) Altered mental status Impression: 08/03/18 pt still present AMS, and fever today morning MRI of brain is pending treat under UTI with antibiotics, followup UA culture. neur check tele, vital monito discuss with pt's family, and answer their questions pt present acute AMS, it may be secondary to positive UTI and elevated WBC. However CT of head also reveals 3.1 cm brain Mass, it seems chronic and quite long time medical condition even pt's family did not know this before. treat under UTI with Rocephin, followup UA culture. neur check tele, vital monitor MRI of brain (2) UTI (urinary tract infection) Conclusion/Plan: 08/03 continue antibiotics with Cefepim, followup UA culture and sensitivity study. will treat with antibiotics of Rocephin, and followup UA culture and sensitivity study. (3) Brain mass Conclusion/Plan: 08/03 will followup MRI fo brain , will discuss with pt for MRI result after has it family is unknown pt has this medical condition, and unsure they will continue pursue further intervention even if it is odd result MRI of brain, will followup and discuss with pt and pt's family (4) HTN (hypertension) Conclusion/Plan: 08/03 stable, continue home BP meds slight elevated BP, family state pt may not take her home BP meds pharmacy will reconcile home BP meds, add Clonidine as PRN (5) DM2 (diabetes mellitus, type 2) Conclusion/Plan: 08/03 increase insulin dosage based on pt's still hyperglycemia pharmacy will reconcile home insulin slight elevated blood glucose, pharmacy will reconcile home insulin slide scale, check A1C hypoglycemia, and ACHS (6) Hypothyroidism Conclusion/Plan: pt's synthroyn increase to 37.5 mcg daily from 25 mcg daily, based TSH test elevate TSH, will check T4, and reconcile home synthyroyn (7) Hx of coronary artery disease Conclusion/Plan: 08/03 continue tele and vital continue Aspirin and BP control Troponin is negative, no chest pain reported. tele, vital monitor resume home Aspirin control of BP (8) fever pt had fever at 38.1 blood culture, followup CXR, followup show mild left pleural effusion, hold IVF of NS antibiotics changed to Cefepim from Rocephin lab, and vital monitor Qualifiers: Altered mental status type: unspecified Qualified Code(s): R41.82 - Altered mental status, unspecified (2) UTI (urinary tract infection) Qualifiers: Urinary tract infection type: site unspecified Hematuria presence: without hematuria Qualified Code(s): N39.0 - Urinary tract infection, site not specified
[2018-08-03] MEDS: SACCHAROMYCES BOULARDII 250 MG CAPSULE PO SCH ×2 (11:42→16:24)
--- NOTE | 2018-08-03 16:07 | MRI Report ---
Reason: AMS, brain mass Procedure Date: 08/03/2018 Accession Number: [id number] / [id number] Procedure: MRI - Brain W/O CPT Code: FULL RESULT: EXAM: MRI BRAIN WITHOUT CONTRAST EXAM DATE: 08/03/2018 03:00 PM. CLINICAL HISTORY: 83-year-old woman with altered mental status and brain mass. COMPARISON: HEAD W/O 08/02/2018 4:56 PM. TECHNIQUE: Multiplanar, multisequence T1-weighted and fluid-sensitive MR sequences of the brain were performed. Sequences optimized for routine evaluation. Other: None. IV Contrast: None. FINDINGS: Parenchyma: Geographic region of restricted diffusion with corresponding FLAIR hyperintensity is present in the cortex of the posterior left temporal lobe and extending nearly to the occipital pole, consistent with acute infarct. This measures approximately 9.1 cm x 1.9 cm, although infarct is largely restricted to the cortex. Susceptibility weighted sequence demonstrates petechial hemorrhage in the occipital lobe without sandy hematoma. Mass lesion in the right occipital lobe seen on the prior CT is similar in intensity to normal parenchyma on most sequences, limiting evaluation on this noncontrast exam. However, coronal T2 weighted sequence demonstrates a fine margin of CSF intensity surrounding a portion of the margins, suspicious for extra-axial location. Edema is present in the surrounding white matter. The remainder of the parenchyma demonstrates focal and subtle malacia in the right anoop, most consistent with remote infarct. There is also moderate to severe burden of nonspecific FLAIR hyperintensities in the deep cerebral and periventricular white matter, most consistent with sequelae of chronic small vessel ischemic disease. Pituitary: Unremarkable. Ventricles and Extra-axial Spaces: Ventricles are symmetric and normal in size for age. Mass lesion described above may be extra-axial arising from the tentorium and/or occipital dura and transverse sinus. This measures of proximally 3.7 x 3.4 cm in maximum axial dimensions and 3.2 cm craniocaudal. Orbits: Unremarkable except for bilateral lens replacement surgery. Sinuses: Paranasal sinuses and mastoid air cells are clear. Major Vascular Flow Voids: Intact. IMPRESSION: 1. 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 There is petechial hemorrhage in the occipital lobe without sandy hematoma. 2. Mass lesion in the right occipital lobe seen on the prior CT is faintly visualized, but is likely extra-axial, favoring meningioma. This measures up to 3.7 cm in diameter. However, evaluation is limited on this noncontrast exam and an intra-axial mass cannot be excluded. MRI with contrast or CT with contrast is recommended for further evaluation. There is surrounding vasogenic edema in the right occipital lobe. RADIA The above findings were discussed with Boyer by Dr. Kenton Caldera at 16:05 hrs on 08/03/18.
[2018-08-03] MEDS: SODIUM CHLORIDE FLUSH 0.9% 10 ML SYRINGE IVP PRN (20:11)
[2018-08-03] MEDS: ATORVASTATIN 40 MG TABLET PO SCH (20:11)
[2018-08-03] MEDS ORDERED: INSULIN GLARGINE 300 UNIT/3 ML PEN SUBQ SCH (21:00)
[2018-08-04 05:35] LABS: BASOPHILS % (AUTO) 0.4 %; EOSINOPHILS # (AUTO) 0.1 10^3/uL (0.0-0.7); EOSINOPHILS % (AUTO) 0.9 %; LYMPHOCYTES # (AUTO) 1.6 10^3/uL (1.5-3.5); LYMPHOCYTES % (AUTO) 17.1 %; MEAN CORPUSCULAR HEMOGLOBIN 29.3 pg (27.0-31.0); MEAN CORPUSCULAR VOLUME 88.7 fL (81.0-99.0); MEAN PLATELET VOLUME 6.4 fL (7.9-10.8); MONOCYTES # (AUTO) 0.7 10^3/uL (0.0-1.0); MONOCYTES % (AUTO) 7.9 %; NEUTROPHILS # (AUTO) 6.8 10^3/uL (1.5-6.6); NEUTROPHILS % (AUTO) 73.7 %; PLT - PLATELET COUNT 152 10^3/uL (130-450); RED BLOOD COUNT 4.45 10^6/uL (4.20-5.40); RED CELL DISTRIBUTION WIDTH 14.8 % (12.0-15.0); WHITE BLOOD COUNT 9.2 x10^3/uL (4.8-10.8)
--- NOTE | 2018-08-04 05:39 | Ultrasound Report ---
Reason: stroke Procedure Date: 08/04/2018 Accession Number: [id number] / [id number] Procedure: US - Carotid Doppler Complete CPT Code: FULL RESULT: EXAM: BILATERAL CAROTID AND VERTEBRAL ARTERY DUPLEX DOPPLER ULTRASOUND: EXAM DATE: 08/04/2018 05:02 AM CLINICAL HISTORY: Stroke. COMPARISON: None. TECHNIQUE: Grayscale imaging, color Doppler, and duplex spectral Doppler were used to evaluate the carotid and vertebral arteries bilaterally. Static images were obtained. FINDINGS: There is mild to moderate calcified plaque noted. Normal antegrade flow is present in bilateral vertebral arteries. VELOCITIES (cm/sec): Right: CCA Mid: 211 cm/sec. CCA Distal: 173 cm/sec. ICA Prox: 133 cm/sec, EDV 12 cm/sec. ICA Mid: 124 cm/sec, EDV 20 cm/sec. ICA Distal: 77 cm/sec, EDV 13 cm/sec. ECA: 247 cm/sec. Vertebral: 77 cm/sec. ICA/CCA Ratio: 0.63 Left: CCA Mid: 148 cm/sec. CCA Distal: 157 cm/sec. ICA Prox: 142 cm/sec, EDV 20 cm/sec. ICA Mid: 156 cm/sec, EDV 22 cm/sec. ICA Distal: 144 cm/sec, EDV 22 cm/sec. ECA: 146 cm/sec. Vertebral: 76 cm/sec. ICA/CCA Ratio: 0.99 ICA diameter stenosis: Right: <50% by velocity and <70% by NASCET criteria. Left: 50-69% by velocity and <70% by NASCET criteria. IMPRESSION: 1. There is mild to moderate calcified carotid artery plaquing. 2. Less than 50% stenosis of the right internal carotid artery. 3. Approximately 50-69% stenosis within the left internal carotid artery. 4. Normal antegrade flow is present in bilateral vertebral arteries. General Recommendations: Stenosis =50% ICA - Follow-up ultrasound 6-12 months Stenosis <50% ICA - High Risk Patient with plaque - Follow-up ultrasound 1-2 years Normal Study but High Risk Patient - Follow-up ultrasound 3-5 years Management recommendations and diagnostic criteria are based on current IAC endorsed standards in Carotid Artery Stenosis: Grayscale and Doppler Ultrasound Diagnosis. Validated velocity measurements with angiographic measurements and velocity criteria are extrapolated from diameter data as defined by the Society of Radiologists in Ultrasound Consensus Conference Radiology 2003; 229;340-346. RADIA
[2018-08-04 05:49] LABS: ALBUMIN 3.3 g/dL (3.2-5.5); ALBUMIN/GLOBULIN RATIO 1.3 (1.0-2.2); BILIRUBIN,TOTAL 1.3 mg/dL (0.2-1.0); CALCIUM 8.6 mg/dL (8.5-10.3); CREATININE 0.7 mg/dL (0.4-1.0); TOTAL PROTEIN 5.8 g/dL (6.7-8.2)
[2018-08-04 06:07] LABS: CHOL/HDL RATIO 4.9 (<4.4); CHOLESTEROL 180 mg/dL; HDL CHOLESTEROL 37 mg/dL; LDL CHOLESTEROL,CALCULATED 113 mg/dL; LDL/HDL RATIO 3.1 (<4.4); VLDL CHOLESTEROL 30 mg/dL
[2018-08-04] MEDS: SODIUM CHLORIDE FLUSH 0.9% 10 ML SYRINGE IVP SCH ×3 (06:11→17:13)
[2018-08-04] MEDS ORDERED: LEVOTHYROXINE 25 MCG TABLET PO SCH (07:00)
[2018-08-04] MEDS ORDERED: POTASSIUM CHLORIDE 20 MEQ TABLET PO ONE ×2 (08:00→16:08)
[2018-08-04] MEDS ORDERED: ATENOLOL 25 MG TABLET PO SCH (09:00)
[2018-08-04] MEDS: SACCHAROMYCES BOULARDII 250 MG CAPSULE PO SCH ×2 (09:28→17:13)
[2018-08-04] MEDS: INSULIN ASPART 300 UNIT/3 ML PEN SUBQ SCH ×4 (09:28→20:49)
[2018-08-04] MEDS: FAMOTIDINE 20 MG TABLET PO SCH (09:28)
[2018-08-04] MEDS: LOSARTAN 50 MG TABLET PO SCH (09:28)
[2018-08-04] MEDS: POLYETHYLENE GLYCOL 3350 17 GM PACKET PO SCH (09:29)
[2018-08-04] MEDS: NYSTATIN POWDER 15 GM TOP SCH ×2 (09:33→20:48)
[2018-08-04] MEDS: ENOXAPARIN 40 MG/0.4 ML SYRINGE SUBQ SCH (09:33)
[2018-08-04] MEDS: CEFEPIME 2 GM in SODIUM CHLORIDE 0.9% MINIBAG 100 ML IV SCH ×2 (09:33→20:48)
--- NOTE | 2018-08-04 11:13 | PROVIDER PROGRESS NOTE ---
Subjective - Prog Note Date Prog Note Date: 08/04/18 - Subjective Pt reports feeling: Improved Subjective: pt's mental status is improving, she can answer some questions. she did not have fever last night. pt denies chest pain, headache. Current Medications - Current Medications Current Medications: Active Medications Acetaminophen (Tylenol) 650 mg PO Q4HR PRN PRN Reason: Pain or Fever > 38C (100.4F) Atorvastatin Calcium (Lipitor) 80 mg PO QPM [facility] Last Admin: 08/03/18 20:11 Dose: 80 mg Clonidine HCl (Catapres) 0.1 mg PO BID PRN PRN Reason: Hypertensive Emergency Enoxaparin Sodium (Lovenox) 40 mg SUBQ DAILY [facility] Last Admin: 08/04/18 09:33 Dose: 40 mg Famotidine (Pepcid) 20 mg PO DAILY [facility] Last Admin: 08/04/18 09:28 Dose: Not Given Cefepime HCl 2 gm/ Sodium (Chloride) 100 mls @ 200 mls/hr IV BID [facility] Last Infusion: 08/04/18 10:19 Dose: Infused Insulin Aspart (Novolog) 3 - 11 unit SUBQ 0800,1200,1700,2100 [facility]; Protocol Last Admin: 08/04/18 09:28 Dose: Not Given Insulin Glargine (Lantus Solostar) 15 unit SUBQ QPM [facility] Latanoprost (Xalatan Ophth Drops) 1 drops EACHEYE DAILY [facility] Levothyroxine Sodium (Synthroid) 37.5 mcg PO QDAC [facility] Last Admin: 08/04/18 06:11 Dose: Not Given Losartan Potassium (Cozaar) 50 mg PO DAILY [facility] Last Admin: 08/04/18 09:28 Dose: Not Given Mineral Oil (Cavilon) 1 applic TOP PRN PRN PRN Reason: Skin Care Nystatin (Nystop) 0 applic TOP BID [facility] Last Admin: 08/04/18 09:33 Dose: 1 applic Ondansetron HCl (Zofran Inj) 4 mg IVP Q6HR PRN PRN Reason: Nausea / Vomiting Polyethylene Glycol (Miralax) 17 gm PO DAILY [facility] Last Admin: 08/04/18 09:29 Dose: Not Given Saccharomyces Boulardii (Florastor) 250 mg PO BIDWM [facility] Last Admin: 08/04/18 09:28 Dose: Not Given Sodium Chloride (Normal Saline Flush 0.9%) 10 ml IVP PRN PRN PRN Reason: NEEDED PER PROVIDER ORDERS Last Admin: 08/03/18 20:11 Dose: 10 ml Sodium Chloride (Normal Saline Flush 0.9%) 10 ml IVP 0100,0900,1700 [facility] Last Admin: 08/04/18 09:33 Dose: 10 ml Aspirin 81 mg PO DAILY 08/02/18 Insulin Aspart [NovoLOG] 10 unit SUBQ [facility] 08/02/18 Insulin Glargine [Lantus Solostar] 40 unit SQ QPM 08/02/18 Losartan [Cozaar] 50 mg PO BID 08/02/18 Atenolol 50 mg PO DAILY 08/03/18 Latanoprost 0.005% Ophth Drops [Xalatan Ophth Drops] 1 drops EACHEYE DAILY 08/03/18 Levothyroxine Sodium [Synthroid] 175 mcg PO DAILY 08/03/18 PARoxetine HCl [Paroxetine HCl] 40 mg PO DAILY 08/03/18 Simvastatin 40 mg PO DAILY 08/03/18 Sitagliptin Phosphate [Januvia] 50 mg PO BID 08/03/18 Objective - Vital Signs/Intake & Output Reviewed Vital Signs: Yes Vital Signs: Vital Signs x48h Temp Pulse Resp BP Pulse Ox 08/04/18 07:33 37.5 C 91 20 158/43 H 93 Intake & Output: Intake & Output 08/01/18 08/02/18 08/03/18 08/04/18 23:59 23:59 23:59 23:59 Intake Total 2060 250 Output Total 300 1025 650 Balance -300 1035 -400 - Objective General Appearance: positive: No acute distress, Alert. negative: Lethargic Eyes Bilateral: positive: Normal inspection, PERRL, No lid inflammation, Conjunctivae nml ENT: positive: ENT inspection nml, Pharynx nml, No signs of dehydration. negative: Purulent nasal drainage, Pharyngeal erythema, Oral lesions Neck: positive: Nml inspection, Thyroid nml, No JVD, Trachea midline. negative: Thyromegaly, Lymphadenopathy (R), Lymphadenopathy (L), Stiff neck, Swelling/bruising, Tracheal deviation Respiratory: positive: Chest non-tender, No respiratory distress, Breath sounds nml. negative: Wheezes, Rales, Rhonchi Cardiovascular: positive: Regular rate & rhythm, No murmur, No gallop. nega tive: Irregularly irregular, Extrasystoles, Tachycardia, Bradycardia, JVD present, Systolic murmur, Diastolic murmur Peripheral Pulses: 2+ Radial (R), 2+ Radial (L), 2+ Dorsalis pedis (R), 2+ Dorsalis pedis (L) Abdomen: positive: Non-tender, No organomegaly, Nml bowel sounds, No distention. negative: Tenderness, Guarding, Rebound Back: positive: Nml inspection. negative: CVA tenderness (R), CVA tenderness (L) Skin: positive: Color nml, No rash, Warm, Dry. negative: Cyanosis, Diaphoresis, Pallor Extremities: positive: Non-tender, Nml appearance. negative: Calf tenderness, Joint swelling, Juliana's sign/cords Neurologic/Psychiatric: positive: Sensation nml. negative: Weakness, Sensory loss, Facial droop, Slurred/abnml speech - Lab Results Fish Bones: 08/04/18 05:20 08/04/18 05:20 Other Labs: Lab Results x24hrs 08/04/18 08/04/18 08/04/18 Range/Units 05:20 05:20 05:20 WBC 9.2 (4.8-10.8) x10^3/uL RBC 4.45 (4.20-5.40) 10^6/uL Hgb 13.0 (12.0-16.0) g/dL Hct 39.5 (37.0-47.0) % MCV 88.7 (81.0-99.0) fL MCH 29.3 (27.0-31.0) pg MCHC 33.0 (32.0-36.0) g/dL RDW 14.8 (12.0-15.0) % Plt Count 152 (130-450) 10^3/uL MPV 6.4 L (7.9-10.8) fL Neut # (Auto) 6.8 H (1.5-6.6) 10^3/uL Lymph # (Auto) 1.6 (1.5-3.5) 10^3/uL [place] # (Auto) 0.7 (0.0-1.0) 10^3/uL Eos # (Auto) 0.1 (0.0-0.7) 10^3/uL Baso # (Auto) 0.0 (0.0-0.1) 10^3/uL Absolute Nucleated RBC 0.00 x10^3/uL Nucleated RBC % 0.0 /100WBC Sodium 138 (135-145) mmol/L Potassium 3.4 L (3.5-5.0) mmol/L Chloride 104 (101-111) mmol/L Carbon Dioxide 24 (21-32) mmol/L Anion Gap 10.0 (6-13) BUN 18 (6-20) mg/dL Creatinine 0.7 (0.4-1.0) mg/dL Estimated GFR (MDRD) 80 L (>89) Glucose 242 H (70-100) mg/dL Calcium 8.6 (8.5-10.3) mg/dL Total Bilirubin 1.3 H (0.2-1.0) mg/dL AST 25 (10-42) IU/L ALT 35 (10-60) IU/L Alkaline Phosphatase 78 (42-121) IU/L Total Protein 5.8 L (6.7-8.2) g/dL Albumin 3.3 (3.2-5.5) g/dL Globulin 2.5 (2.1-4.2) g/dL Albumin/Globulin Ratio 1.3 (1.0-2.2) Triglycerides 148 ( - 149) mg/dL Cholesterol 180 ( - 199) mg/dL LDL Cholesterol, Calc 113 ( - 129) mg/dL VLDL Cholesterol 30 mg/dL HDL Cholesterol 37 L (60 - ) mg/dL LDL/HDL Ratio 3.1 (<4.4) Cholesterol/HDL Ratio 4.9 (<4.4) ABX Reporting Has patient been on IV antibiotics over the past 48 hours?: Yes Sepsis Event Note (H) - Evaluation Current Stage of Sepsis: Sepsis Possible source of Sepsis: positive: Genitourinary - Sepsis Criteria Sepsis Criteria: WBC count greater than 12,000 or less than 4000, MEDICAID NURSE: altered consciousness (unrelated to primary neuro pathology) Assessment/Plan - Problem List (1) Altered mental status Impression: 08/04 pt is better today, can have simple conversation. continue neur check, tele and vital monitor 08/03/18 pt still present AMS, and fever today morning MRI of brain is pending treat under UTI with antibiotics, followup UA culture. neur check tele, vital monito discuss with pt's family, and answer their questions pt present acute AMS, it may be secondary to positive UTI and elevated WBC. However CT of head also reveals 3.1 cm brain Mass, it seems chronic and quite lo ng time medical condition even pt's family did not know this before. treat under UTI with Rocephin, followup UA culture. neur check tele, vital monitor MRI of brain (2) stroke MRI of brain reveals both infarction at occipitotemporal cortex, corresponding to posterior MCA/[employer] and hemorrhage at occipital lob without hematoma. hold Aspirin because of hemorrhage add Lipitor order PT/OT and ST for swallowing study, pt show some difficult swallowing at this morning. discussed with pt's family about the new image study (3) UTI (urinary tract infection) Conclusion/Plan: 08/04 continue antibiotics, and followup UA culture 08/03 continue antibiotics with Cefepim, followup UA culture and sensitivity study. will treat with antibiotics of Rocephin, and followup UA culture and sensitivity study. (4) Brain mass Conclusion/Plan: 08/04 MRI of brain reveals mass lesion up to 3.7 cm, favoring meningioma. discussed with pt's family. the family decline more image study for pt discuss with pt's family about pt's care plan and d/c plan 08/03 will followup MRI fo brain , will discuss with pt for MRI result after has it family is unknown pt has this medical condition, and unsure they will continue pursue further intervention even if it is odd result MRI of brain, will followup and discuss with pt and pt's family (5) HTN (hypertension) Conclusion/Plan: 08/03 stable, continue home BP meds slight elevated BP, family state pt may not take her home BP meds pharmacy will reconcile home BP meds, add Clonidine as PRN (6) DM2 (diabetes mellitus, type 2) Conclusion/Plan: 08/04 pharmacy did not know how much pt exactly took insulin at home. pt still had hyperglycemia increase lantus to 15 unit continue slide scale 08/03 increase insulin dosage based on pt's still hyperglycemia pharmacy will reconcile home insulin slight elevated blood glucose, pharmacy will reconcile home insulin slide scale, check A1C hypoglycemia, and ACHS (7) Hypothyroidism Conclusion/Plan: 08/04 continue 37.5 mcg synthrioyn pt's synthroyn increase to 37.5 mcg daily from 25 mcg daily, based TSH test elevate TSH, will check T4, and reconcile home synthyroyn (8) Hx of coronary artery disease Conclusion/Plan: 08/03 continue tele and vital continue Aspirin and BP control Troponin is negative, no chest pain reported. tele, vital monitor resume home Aspirin control of BP (9) fever 08/04 pt did not have fever on last night, blood culture preliminary is negative continue Cefepime lab and vital monitor pt had fever at 38.1 blood culture, followup CXR, followup show mild left pleural effusion, hold IVF of NS antibiotics changed to Cefepim from Rocephin lab, and vital monitor Qualifiers: Altered mental status type: unspecified Qualified Code(s): R41.82 - Altered mental status, unspecified (2) UTI (urinary tract infection) Qualifiers: Urinary tract infection type: site unspecified Hematuria presence: without hematuria Qualified Code(s): N39.0 - Urinary tract infection, site not specified
--- NOTE | 2018-08-04 11:15 | ADVANCE CARE PLANNING NOTE ---
Advance Care Planning - Date/Time Date: 08/03/18 Time: 16:00 - Purpose of encounter Text: advance care for pt - Parties in attendance Parties in attendance: pt, pt's son, daughter in law, and me - Decisional capacity Decisional capacity of: pt is still very confused, can not make decision. pt's son and daughter in law make the decision for pt - Subjective/Patient's story Subjective/Patient's story: pt's son state his mother walk with walker at home. she suddenly became confused before yesterday morning. pt's son state he does not want his mother to have more image study for his mother. daughter in law state she hope her mother does not have any chemotherapy or surgery intervention for her mother in law. We discussed the d/c plan with the son and daughter in law, if pt is capable to go to SNF, pt may go to SNF, but if pt is unable to go to SNF, in the worsening case, pt may seek palliative care and hospice care. - Objective/Medical story Objective/Medical Story: pt's MRI reveals infarction of stroke and hemorrhage, and brain mass, flavorous to meningioma, UTI, acute confused, DM2 - Goals of Care Goals of care determinations: advance care for pt's care plan and d/c plan - Plan Plan: continue PT/OT, stroke workup, may d/c to SNF or advance care dependent pt's recovery - Time Spent on Advance Care Planning Time spent on advance care plannin
[2018-08-04] MEDS: ATORVASTATIN 40 MG TABLET PO SCH (20:48)
[2018-08-04] MEDS: SODIUM CHLORIDE FLUSH 0.9% 10 ML SYRINGE IVP PRN (20:48)
[2018-08-04] MEDS ORDERED: INSULIN GLARGINE 300 UNIT/3 ML PEN SUBQ SCH ×2 (21:00)
[2018-08-05 05:56] LABS: BASOPHILS % (AUTO) 0.2 %; EOSINOPHILS # (AUTO) 0.1 10^3/uL (0.0-0.7); EOSINOPHILS % (AUTO) 1.5 %; HGB - HEMOGLOBIN 12.7 g/dL (12.0-16.0); LYMPHOCYTES # (AUTO) 1.9 10^3/uL (1.5-3.5); LYMPHOCYTES % (AUTO) 20.6 %; MEAN CORPUSCULAR HEMOGLOBIN 29.1 pg (27.0-31.0); MEAN CORPUSCULAR HGB CONC 33.1 g/dL (32.0-36.0); MEAN CORPUSCULAR VOLUME 87.9 fL (81.0-99.0); MEAN PLATELET VOLUME 6.9 fL (7.9-10.8); MONOCYTES # (AUTO) 0.7 10^3/uL (0.0-1.0); MONOCYTES % (AUTO) 7.5 %; NEUTROPHILS # (AUTO) 6.5 10^3/uL (1.5-6.6); NEUTROPHILS % (AUTO) 70.2 %; PLT - PLATELET COUNT 168 10^3/uL (130-450); RED BLOOD COUNT 4.37 10^6/uL (4.20-5.40); RED CELL DISTRIBUTION WIDTH 14.5 % (12.0-15.0); WHITE BLOOD COUNT 9.2 x10^3/uL (4.8-10.8)
[2018-08-05 06:12] LABS: ALBUMIN 3.2 g/dL (3.2-5.5); ALBUMIN/GLOBULIN RATIO 1.3 (1.0-2.2); CALCIUM 8.5 mg/dL (8.5-10.3); CREATININE 0.7 mg/dL (0.4-1.0); TOTAL PROTEIN 5.6 g/dL (6.7-8.2)
[2018-08-05] MEDS ORDERED: LEVOTHYROXINE 75 MCG TABLET PO SCH (07:00)
[2018-08-05] MEDS ORDERED: LEVOTHYROXINE 100 MCG TABLET PO SCH ×2 (07:00→09:00)
[2018-08-05] MEDS ORDERED: POTASSIUM CHLORIDE 20 MEQ TABLET PO ONE (07:37)
[2018-08-05] MEDS: ENOXAPARIN 40 MG/0.4 ML SYRINGE SUBQ SCH (08:51)
[2018-08-05] MEDS: CEFEPIME 2 GM in SODIUM CHLORIDE 0.9% MINIBAG 100 ML IV SCH (08:51)
[2018-08-05] MEDS: SACCHAROMYCES BOULARDII 250 MG CAPSULE PO SCH (08:52)
[2018-08-05] MEDS: FAMOTIDINE 20 MG TABLET PO SCH (08:52)
[2018-08-05] MEDS: LOSARTAN 50 MG TABLET PO SCH (08:52)
[2018-08-05] MEDS: SODIUM CHLORIDE FLUSH 0.9% 10 ML SYRINGE IVP SCH ×2 (08:53→09:08)
[2018-08-05] MEDS: NYSTATIN POWDER 15 GM TOP SCH (08:54)
[2018-08-05] MEDS: INSULIN ASPART 300 UNIT/3 ML PEN SUBQ SCH ×2 (08:54→12:18)
[2018-08-05] MEDS ORDERED: ATENOLOL 25 MG TABLET PO SCH (09:00)
[2018-08-05] MEDS ORDERED: PARoxetine 10 MG TABLET PO SCH (09:00)
[2018-08-05] MEDS ORDERED: LATANOPROST 0.005% OPHTH DROPS EACHEYE SCH (09:00)
[2018-08-05] MEDS: POLYETHYLENE GLYCOL 3350 17 GM PACKET PO SCH (09:08)
--- NOTE | 2018-08-05 11:29 | Discharge Plan ---
"Discharge Plan for SNF / [facility] - Discharge Plan And Transition Orders Disposition: 03 SNF DC/Xfer Condition: Poor Allergies and Adverse Reactions: Allergies Allergy/AdvReac Type Severity Reaction Status Date / Time cephradine Allergy Unknown Verified 08/04/18 07:50 sulfamethoxazole Allergy Unknown Verified 08/04/18 07:50 [From ] trimethoprim [From ] Allergy Unknown Verified 08/04/18 07:50 - SNF / GROUP HOME Transition Orders Admit to (Facility): [facility] Under the care of (Name): Dayo Wilkinson Discharge Diagnosis: Stroke, brain mass, UTI, HTN, DM2, hypothyroidism Medicare Certification Statement: I certify that Post Hospital half-way care is medically necessary on a continuing basis for any of the conditions for which she/he is receiving care during hospitalization. Notify PCP of admission and forward orders to primary provider for signature. Weight on admission and: Daily Call PCP immediately if weight increases by: 2 kg Other Notification Orders: Call PCP immediately if patient develops dyspnea, chest pain/tightness or edema. House Bowel Program: Yes Additional Bowel Program Orders: If no BM after 2 days, nurse may give M.O.M. 30ml PO PRN and/or ducolax Supp 1 CA and/or MARIELA 250mg P.O., and/or senna 1-2 tabs PO. On day 3 nurse may give repeat above order until residents constipation is resolved. Annual Influenza Vaccine (between Mar 26 and October 23): Yes Two-step PPD per [facility] [phone] or approved exception documents: Yes Treatments & Other Orders: pt may followup admission provider at [facility] when pt is arrival to [facility]. Pt had stoke with infarction and hemorrhage, Aspirin is hold now. Pt had UTI, Levaquin is prescribed for pt according to sensitivity study. Oxygen Orders: PRN Medication Orders: PLEASE REFER TO THE DISCHARGE MEDICATION LIST. Insulin Orders?: Yes - Medications New Prescriptions: Atorvastatin [Lipitor] 80 mg PO QPM #10 tablet Levofloxacin [Levaquin] 750 mg PO DAILY #5 tablet Saccharomyces Boulardii [Florastor] 250 mg PO DAILY #5 capsule - Diet Type: Geriatric Texture: Dysphagia mech Liquids: Thin May have monthly special meal: Yes - Therapies | Activity Therapy: Evaluation | Treat if indicated: Speech, PT, OT Rehabilitation Potential: Maximize functional status Activity: Activity as Tolerated Additional Instructions: pt may followup admission provider at [facility] when pt is arrival to [facility]. Pt had stoke with infarction and hemorrhage, Aspirin is hold now. Pt had UTI, Levaquin is prescribed for pt according to sensitivity study. Insulin Orders - SNF Basal | Correction | Custom Orders: Diagnosis: Diabetes Initiate hypo and hyperglycemia protocols for BG <70 and BG >375. May check BG PRN for signs/symptoms of dysglycemia. Frequency of BG checks: [AC/Meal/HS] Basal Insulin: [x] Lantus 100 units / ml inject subq as follows: [20unit QPM] [] Other: [] Correction Insulin: - Select the type of insulin below [Choose: Novolog/Humalog]100 units /ml insulin inject subq per orders indicate below [] LOW DOSE [] MODERATE DOSE [x] MODERATE/HIGH DOSE [] HIGH DOSE GB UNITS GB UNITS GB UNITS GB UNITS 61-140 0 UNITS 61-140 0 UNITS 61-140 0 UNITS 61-140 0 UNITS 141-175 1 UNITS 141-175 1 UNITS 141-175 2 UNITS 141-175 3 UNITS 176-225 2 UNITS 176-225 3 UNITS 176-225 4 UNITS 176-225 5 UNITS 226-275 3 UNITS 226-275 5 UNITS 226-275 6 UNITS 226-275 7 UNITS 276-325 4 UNITS 276-325 7 UNITS 276-325 8 UNITS 276-325 9 UNITS 326-375 5 UNITS 326-375 9 UNITS 326-375 10 UNITS 326-375 11 UNITS >375 CONTACT MD >375 CONTACT MD >375 CONTACT MD >375 CONTACT MD Custom Dosing: [Choose: Novolog/Humalog] 100 units/ml Insulin inject subq as follows: GB Units 61-140 [] Units 141-175 [] Units 176-225 [] Units 226-275 [] Units 276-325 []Units 326-375 [] Units >375 Contact MD"
--- NOTE | 2018-08-05 12:15 | DISCHARGE SUMMARY ---
Discharge Summary Discharge Date: 08/05/18 Discharging Provider: PEARCE Primary Care Provider: Dayo Wilkinson Condition at Discharge: Poor Discharge Disposition: SNF DC/Xfer Discharge Facility Name: [facility] - DIAGNOSES Admission Diagnoses: (1) Altered mental status (2) UTI (urinary tract infection) (3) Brain mass (4) HTN (hypertension) (5) DM2 (diabetes mellitus, type 2) (6) Hypothyroidism (7) Hx of coronary artery disease Discharge Diagnoses with Status of Each Condition: (1) Altered mental status resolved (2) stroke MRI reveals pt has both infarction and hemorrhage. Hold her Aspirin now, increase pt's Statin dosage to 80mg daily. continue PT/OT/ST at [facility]. (3) UTI (urinary tract infection) positive to Ecoli and sensitivity to Levaquin. Levaquin is prescribed to pt. (4) Brain mass Conclusion/Plan: MRI of brain reveals mass lesion up to 3.7 cm, favoring meningioma. discussed with pt's family. the family decline more image study and interventions for pt (5) HTN (hypertension) stable, continue home regimen (6) DM2 (diabetes mellitus, type 2) pt report she was on and off taking insulin at home. Now pt is 20units of Lantus and slide scale. continue management in [facility] (7) Hypothyroidism Conclusion/Plan: pt had elevate TSH, synthroyn increase to 37.5 mcg daily from 25 mcg daily, continue management (8) Hx of coronary artery disease stable (9) fever resolved. Blood culture is negative. I report pt to Dr. Barajas for pt's continuing care - HPI History of Present Illness: Ms Aviles is a 83-year-old female with a PMH significant for hx of CAD with stent, TIA, HTN, hypothyroidism, DM2, obese, who presents to the emergency department today with altered mental status. Pt is confused, and poor historian. Pt's daughter in law at bedside provide some history. She report pt became very confused recently. She has no headache, fever, chill, chest pain, shortness of breath, abdominal pain. UA reveal UTI. Head CT reveals a possible Occipital intracranial mass. She report they has no knowledge of pt has mass in her brain. This will be better characterized on MRI. Daughter in law states" we are unsure if she would want to do chemotherapy and surgery even if it was a cancerous tumor." Pt is afebrile, and has slight elevated blood pressure otherwise she is hemodynamic stable. - HOSPITAL COURSE Hospital Course: pt was admitted for AMS and UTI, and brain mass shown in CT. MRI of brain reveals stroke with infarction and hemorrhage, mass is favouring meningioma. pt's family declined to have more image and intervention for her brain mass. After treatment at hospital, pt became oriented. PT/OT/ST recommended pt con tinue PT/OT/ST in SNF. UA culture reveal positive Ecoli and sensitivity to Levaquin. The case is reported to Dr. Barajas in [facility]. - ALLERGIES Allergies/Adverse Reactions: Allergies Allergy/AdvReac Type Severity Reaction Status Date / Time cephradine Allergy Unknown Verified 08/04/18 07:50 sulfamethoxazole Allergy Unknown Verified 08/04/18 07:50 [From ] trimethoprim [From ] Allergy Unknown Verified 08/04/18 07:50 - MEDICATIONS Home Medications: Ambulatory Orders Medication Instructions Recorded Confirmed Losartan [Cozaar] 50 mg PO BID 08/02/18 08/04/18 Atenolol 50 mg PO DAILY 08/03/18 08/04/18 Latanoprost 0.005% Ophth Drops 1 drops EACHEYE DAILY 08/03/18 08/04/18 [Xalatan Ophth Drops] Levothyroxine Sodium [Synthroid] 175 mcg PO DAILY 08/03/18 08/04/18 PARoxetine HCl [Paroxetine HCl] 40 mg PO DAILY 08/03/18 08/04/18 Sitagliptin Phosphate [Januvia] 50 mg PO BID 08/03/18 08/04/18 Atorvastatin [Lipitor] 80 mg PO QPM #10 tablet 08/05/18 Levofloxacin [Levaquin] 750 mg PO DAILY #5 tablet 08/05/18 Saccharomyces Boulardii [Florastor] 250 mg PO DAILY #5 capsule 08/05/18 - PHYSICAL EXAM AT DISCHARGE General Appearance: positive: No acute distress, Alert. negative: Lethargic Eyes Bilateral: positive: Normal inspection, PERRL, No lid inflammation, Conjunctivae nml ENT: positive: ENT inspection nml, Pharynx nml, No signs of dehydration. negative: Purulent nasal drainage, Pharyngeal erythema, Oral lesions Neck: positive: Nml inspection, Thyroid nml, No JVD, Trachea midline. negative: Thyromegaly, Lymphadenopathy (R), Lymphadenopathy (L), Stiff neck, Swelling/bruising, Tracheal deviation Respiratory: positive: Chest non-tender, No respiratory distress, Breath sounds nml. negative: Wheezes, Rales, Rhonchi Cardiovascular: positive: Regular rate & rhythm, No murmur, No gallop. negative: Irregularly irregular, Extrasystoles, Tachycardia, Bradycardia, JVD present, Systolic murmur, Diastolic murmur Peripheral Pulses: positive: 2+ Abdomen: positive: Non-tender, No organomegaly, Nml bowel sounds, No distention. negative: Tenderness, Guarding, Rebound Back: positive: Nml inspection. negative: CVA tenderness (R), CVA tenderness (L) Skin: positive: Color nml, No rash, Warm, Dry. negative: Cyanosis, Diaphoresis, Pallor Extremities: positive: Non-tender, Nml appearance. negative: Calf tenderness, Joint swelling, Juliana's sign/cords Neurologic/Psychiatric: positive: Oriented x3, Sensation nml, Facial droop. ne gative: Weakness, Sensory loss, Slurred/abnml speech, Depressed mood/affect - LABS Result Diagrams: 08/05/18 05:15 08/05/18 05:15 - SEPSIS Current Stage of Sepsis: Sepsis Possible source of Sepsis: Genitourinary Sepsis Criteria: WBC count greater than 12,000 or less than 4000, LITIGATION COUNSEL: altered consciousness (unrelated to primary neuro pathology) - FOLLOW UP Follow Up: pt may followup admission provider at [facility] when pt is arrival to [facility]. Pt had stoke with infarction and hemorrhage, Aspirin is hold now. Pt had UTI, Levaquin is prescribed for pt according to sensitivity study. - TIME SPENT Time Spent in Discharge (Minutes): 60
[2018-08-05 15:52] VITALS: BP 150/65
[2018-08-05] MEDS ORDERED: INSULIN GLARGINE 300 UNIT/3 ML PEN SUBQ SCH ×2 (21:00)
== END 2018-08-05 15:45 | DRG 64 ==
LOC: EDUNIT# → ED 15:57 → MS2 18:43
PROVIDERS: ADMIT Nurse Practitioner Gerontology; ATTEND Nurse Practitioner Gerontology
DX: I63.519 Cerebral infarction due to unspecified occlusion or stenosis of unspecified middle cerebral artery (principal); I61.9 Nontraumatic intracerebral hemorrhage, unspecified; E11.9 Type 2 diabetes mellitus without complications; A41.9 Sepsis, unspecified organism; N39.0 Urinary tract infection, site not specified; I63.539 Cerebral infarction due to unspecified occlusion or stenosis of unspecified posterior cerebral artery; B96.20 Unspecified Escherichia coli [E. coli] as the cause of diseases classified elsewhere; E03.9 Hypothyroidism, unspecified; Z79.82 Long term (current) use of aspirin; Z79.4 Long term (current) use of insulin; R41.82 Altered mental status, unspecified; I10 Essential (primary) hypertension; D32.0 Benign neoplasm of cerebral meninges; I25.10 Atherosclerotic heart disease of native coronary artery without angina pectoris; E66.9 Obesity, unspecified; Z66 Do not resuscitate; Z68.39 Body mass index [BMI] 39.0-39.9, adult
CPT/HCPCS: 36415; 51702; 70450; 70551; 71045; 80053; 80061; 81001; 81003; 83036; 83605; 83690; 83721; 83735; 84439; 84443; 84484; 85025; 87040; 87086; 87181; 93005; 93306; 93880; 96374; 99284; 99285

== ENCOUNTER 2018-08-05 08:00 | Outpatient (CLI) | payer MEDICARE, OTHER | END 2018-08-05 23:59 | disposition home or self-care (01) | LOC: LAB.R 08:00 | DX: A04.72 Enterocolitis due to Clostridium difficile, not specified as recurrent (principal) | CPT/HCPCS: 87493 ==

== ENCOUNTER 2018-08-19 15:47 | Emergency (ER) | payer MEDICARE, OTHER ==
[2018-08-19 16:09] VITALS: BP 160/70
--- NOTE | 2018-08-19 16:56 | ED Physician Documentation ---
PD HPI LOWER EXT INJURY - Stated complaint Stated Complaint: RT LEG PX - Chief complaint Chief Complaint: Ext Problem - History obtained from History obtained from: Patient - History of Present Illness PD HPI LOW EXT INJURY LOCATION: Right, Lower leg Type of injury: Other ([facility], post [facility] and not out of bed much. Has some leg edema. Dr. Barajas concerned about DVT, so referred the patient in for U/S. Tried to get outpt one, but he reports DI could not get U/S opening until next week.). No: Fall, Twist Timing - onset: How many days ago (1-2) Timing - details: Gradual onset, Still present Worsened by: Palpating Associated symptoms: Swelling. No: Weakness, Numbness Contributing factors: No: Anticoagulated, Prior ortho surgery Similar symptoms before: Has not had sx before Recently seen: Admitted (had recent hemorrhagic stroke and is at rehab at [facility] now.) Review of Systems Unable to obtain: Confused Constitutional: denies: Fever Skin: denies: Rash, Lesions Neurologic: reports: Focal weakness (post CVA) PD PAST MEDICAL HISTORY - Past Medical History Cardiovascular: Hypertension, HI Respiratory: None Neuro: TIA Endocrine/Autoimmune: Type 2 diabetes, HyPOthyroidism GI: Chronic diarrhea, Chronic constipation BUILDING ESTIMATOR: None : Incontinence HEENT: Macular degeneration Psych: None Musculoskeletal: Osteoarthritis Derm: None - Past Surgical History Past Surgical History: Yes General: Cholecystectomy, Appendectomy, Colonoscopy Ortho: Hip replacement, Other /BUILDING ESTIMATOR: section, Hysterectomy Cardiovascular: Coronary stent HEENT: Tonsil/Adenoidectomy - Present Medications Home Medications: Ambulatory Orders Medication Instructions Recorded Confirmed Losartan [Cozaar] 50 mg PO BID 08/02/18 08/04/18 Atenolol 50 mg PO DAILY 08/03/18 08/04/18 Latanoprost 0.005% Ophth Drops 1 drops EACHEYE DAILY 08/03/18 08/04/18 [Xalatan Ophth Drops] Levothyroxine Sodium [Synthroid] 175 mcg PO DAILY 08/03/18 08/04/18 PARoxetine HCl [Paroxetine HCl] 40 mg PO DAILY 08/03/18 08/04/18 Sitagliptin Phosphate [Januvia] 50 mg PO BID 08/03/18 08/04/18 Atorvastatin [Lipitor] 80 mg PO QPM #10 tablet 08/05/18 Levofloxacin [Levaquin] 750 mg PO DAILY #5 tablet 08/05/18 Saccharomyces Boulardii [Florastor] 250 mg PO DAILY #5 capsule 08/05/18 - Allergies Allergies/Adverse Reactions: Allergies Allergy/AdvReac Type Severity Reaction Status Date / Time cephradine Allergy Unknown Verified 08/04/18 07:50 sulfamethoxazole Allergy Unknown Verified 08/04/18 07:50 [From ] trimethoprim [From ] Allergy Unknown Verified 08/04/18 07:50 - Social History Does the pt smoke?: No Smoking Status: Never smoker Does the pt drink ETOH?: No Does the pt have substance abuse?: No - Immunizations Immunizations are current?: Yes - POLST Patient has POLST: Yes POLST Status: DNR PD ED PE NORMAL - Vitals Vital signs reviewed: Yes - General General: Alert and oriented X 3, No acute distress, Well developed/nourished - HEENT HEENT: Pharynx benign - Neck Neck: Supple, no meningeal sign, No adenopathy - Cardiac Cardiac: RRR, No murmur - Respiratory Respiratory: Clear bilaterally - Derm Derm: Normal color, Warm and dry, Other (both legs with some 1+ pitting edema. RIght lower leg with some redness faintly posterior ca) - Neuro Neuro: Alert and oriented X 3 Results - Vitals Vitals: Oxygen O2 Source Room air - Rads (name of study) right venous duplex leg Radiology: Prelim report reviewed, EMP read contemporaneously PD MEDICAL DECISION MAKING - ED course Complexity details: reviewed results (Duplex negative for DVT.), considered differential (some edema in both legs, right worse, without rash nor sores. ), d/w patient Departure - Departure Disposition: 01 Home, Self Care Clinical Impression: Lower leg edema Clinical Impression: (Ruled Out): Deep vein thrombosis Condition: Stable Record reviewed to determine appropriate education?: Yes Instructions: ED Edema Legs Bilateral Follow-Up: Osmar Peacock MD [Primary Care Provider] - Dayo Barajas DO [Credentialed Staff Provider] - Comments: No signs of blood clots on your ultrasound. Elevate and rest her legs often. You could use some Fernandez wraps to help with the edema on both legs. Follow-up with Dr. Barajas at [facility] and your primary care as well. Continue current usual medications. Discharge Date/Time: 08/19/18 17:55
--- NOTE | 2018-08-19 18:05 | Ultrasound Report ---
Reason: calf pain and swelling; concern DVT; recent CVA Procedure Date: 08/19/2018 Accession Number: [id number] / [id number] Procedure: US - Duplex Ext Veins Right CPT Code: FULL RESULT: EXAM: RIGHT LOWER EXTREMITY VENOUS ULTRASOUND EXAM DATE: 08/19/2018 05:34 PM. CLINICAL HISTORY: Calf pain and swelling; concern DVT; recent CVA. COMPARISON: None. TECHNIQUE: Real-time sonographic vascular imaging was performed by the audio visual arts director through the lower extremity utilizing both color-flow and Doppler spectral analysis. Multiple reimbursement representative static images were saved for review. FINDINGS: Common Femoral Vein (CFV): Normal. CFV-GSV Junction: Normal. Profunda Femoral Vein (PFV): Normal. Femoral Vein (FV) Prox: Normal. Femoral Vein (FV) Mid: Normal. Femoral Vein (FV) Dist: Normal. Popliteal Vein: Normal. Posterior Tibial Veins: The visualized portions are patent, limited visualization. Peroneal Veins: The visualized portions are patent, limited visualization. Contralateral Side CFV: Normal. Other: None. IMPRESSION: No evidence for deep venous thrombosis in the visualized right lower extremity. RADIA
== END 2018-08-19 17:55 | disposition home or self-care (01) ==
LOC: ED 15:47
DX: R60.0 Localized edema (principal); I10 Essential (primary) hypertension; I25.2 Old myocardial infarction; E03.9 Hypothyroidism, unspecified; E11.9 Type 2 diabetes mellitus without complications; Z86.73 Personal history of transient ischemic attack (TIA), and cerebral infarction without residual deficits
CPT/HCPCS: 99283

== ENCOUNTER 2018-08-22 19:30 | Outpatient (CLI) | payer MEDICARE, OTHER | END 2018-08-22 23:59 | disposition home or self-care (01) | LOC: LAB.R 19:30 | DX: R09.89 Other specified symptoms and signs involving the circulatory and respiratory systems (principal) | CPT/HCPCS: 87275; 87276 ==

== ENCOUNTER 2018-09-04 08:00 | Outpatient (CLI) | payer MEDICARE, OTHER | END 2018-09-04 23:59 | disposition home or self-care (01) | LOC: LAB.R 08:00 | DX: R19.7 Diarrhea, unspecified (principal) | CPT/HCPCS: 87493 ==

== ENCOUNTER 2018-09-06 14:00 | Outpatient (CLI) | payer MEDICARE, OTHER ==
[2018-09-06 17:02] LABS: BASOPHILS % (AUTO) 0.3 %; EOSINOPHILS # (AUTO) 0.2 10^3/uL (0.0-0.7); EOSINOPHILS % (AUTO) 1.7 %; HGB - HEMOGLOBIN 13.1 g/dL (12.0-16.0); LYMPHOCYTES # (AUTO) 1.5 10^3/uL (1.5-3.5); LYMPHOCYTES % (AUTO) 16.7 %; MEAN CORPUSCULAR HEMOGLOBIN 27.7 pg (27.0-31.0); MEAN CORPUSCULAR HGB CONC 32.7 g/dL (32.0-36.0); MEAN CORPUSCULAR VOLUME 84.8 fL (81.0-99.0); MEAN PLATELET VOLUME 6.8 fL (7.9-10.8); MONOCYTES # (AUTO) 0.4 10^3/uL (0.0-1.0); MONOCYTES % (AUTO) 4.7 %; NEUTROPHILS # (AUTO) 6.7 10^3/uL (1.5-6.6); NEUTROPHILS % (AUTO) 76.6 %; PLT - PLATELET COUNT 212 10^3/uL (130-450); RED BLOOD COUNT 4.74 10^6/uL (4.20-5.40); RED CELL DISTRIBUTION WIDTH 14.2 % (12.0-15.0); WHITE BLOOD COUNT 8.8 x10^3/uL (4.8-10.8)
[2018-09-06 17:04] LABS: CALCIUM 8.6 mg/dL (8.5-10.3); CREATININE 0.6 mg/dL (0.4-1.0)
== END 2018-09-06 23:59 | disposition home or self-care (01) ==
LOC: LAB.R 14:00
DX: E11.9 Type 2 diabetes mellitus without complications (principal); I10 Essential (primary) hypertension
CPT/HCPCS: 80048; 85025

== ENCOUNTER 2018-09-10 05:40 | Outpatient (CLI) | payer MEDICARE, OTHER ==
[2018-09-10 07:30] LABS: BILIRUBIN,URINE NEGATIVE (NEGATIVE); GLUCOSE, URINE (UA) NEGATIVE (NEGATIVE); KETONES,URINE (UA) NEGATIVE (NEGATIVE); LEUKOCYTE ESTERASE, URINE SMALL (NEGATIVE); NITRITE,URINE POSITIVE (NEGATIVE); OCCULT BLOOD,URINE NEGATIVE (NEGATIVE); PH,URINE 5.5 PH (5.0-7.5); PROTEIN,URINE NEGATIVE (NEGATIVE); UROBILINOGEN,URINE 0.2 (NORMAL) E.U./dL (NORMAL)
[2018-09-10 07:32] LABS: CLARITY,URINE HAZY (CLEAR)
[2018-09-10 08:01] LABS: BACTERIA,URINE Moderate /HPF (None Seen); RBC,URINE None Seen /HPF (0-5); SQUAMOUS EPITHELIAL CELL,UR FEW Squamous (<= Few)
== END 2018-09-10 23:59 | disposition home or self-care (01) ==
LOC: LAB.R 05:40
PROVIDERS: ATTEND Family Medicine
DX: N39.0 Urinary tract infection, site not specified (principal)
CPT/HCPCS: 81001; 81003; 87086; 87181

== ENCOUNTER 2018-09-22 13:00 | Outpatient (CLI) | payer MEDICARE, OTHER ==
[2018-09-22 13:54] LABS: BASOPHILS # (AUTO) 0.1 10^3/uL (0.0-0.1); BASOPHILS % (AUTO) 0.8 %; EOSINOPHILS # (AUTO) 0.2 10^3/uL (0.0-0.7); EOSINOPHILS % (AUTO) 2.4 %; LYMPHOCYTES # (AUTO) 1.6 10^3/uL (1.5-3.5); LYMPHOCYTES % (AUTO) 24.1 %; MEAN CORPUSCULAR HGB CONC 32.9 g/dL (32.0-36.0); MEAN PLATELET VOLUME 7.1 fL (7.9-10.8); MONOCYTES # (AUTO) 0.6 10^3/uL (0.0-1.0); NEUTROPHILS # (AUTO) 4.2 10^3/uL (1.5-6.6); NEUTROPHILS % (AUTO) 63.7 %; PLT - PLATELET COUNT 206 10^3/uL (130-450); RED BLOOD COUNT 4.64 10^6/uL (4.20-5.40); RED CELL DISTRIBUTION WIDTH 15.4 % (12.0-15.0); WHITE BLOOD COUNT 6.6 x10^3/uL (4.8-10.8)
[2018-09-22 14:03] LABS: CALCIUM 8.7 mg/dL (8.5-10.3); CREATININE 0.7 mg/dL (0.4-1.0)
== END 2018-09-22 23:59 | disposition home or self-care (01) ==
LOC: LAB.R 13:00
DX: E87.6 Hypokalemia (principal); D64.9 Anemia, unspecified
CPT/HCPCS: 80048; 85025

== ENCOUNTER 2018-09-26 12:30 | Outpatient (CLI) | payer MEDICARE, OTHER | END 2018-09-26 23:59 | disposition home or self-care (01) | LOC: LAB.R 12:30 | DX: A04.72 Enterocolitis due to Clostridium difficile, not specified as recurrent (principal) | CPT/HCPCS: 87493 ==

== ENCOUNTER 2018-10-26 11:30 | Outpatient (CLI) | payer MEDICARE, OTHER ==
--- NOTE | 2018-10-26 19:41 | CONSULTATION NOTE ---
Palliative Care Follow Up - Referral Referring Provider: Dr. Osmar Peacock Time of Visit: INITIAL PALLITIVE CARE CONSULT 11:20-12:45 Referral setting: Home Referral Reason: Meningioma/Stroke/Pal Care - Information Sources Records reviewed: Previous records reviewed History/Review of Systems obtained from: Patient, Family (son Thiago caregiver providing most of information) Exam limitations: Clinical condition (patient with word finding; some STM issues) - History of Present Illness Update Brief HPI Update: This is an 83-year-old who lives her son Ray, she has had decline in her health, with some memory problems over the last several years. Her in January 2014, was found over time to have difficulty to be able to manage in her home setting, but was independent and he did just oversight. Her other son Jeremiah, help her with her bills, but he has since moved to [place] and is retiring. Ray has taken over at this point. She did present on 8 with acute mental status changes, and on admission to [facility] was found to have a UTI, presented with an acute stroke with infarction in the left posterior occipital lobe, there was noted some hemorrhage, as well as discovered a mass. The mass does measure 3.7 x 3.4 x 3.2 cm, by appearance is mostly consistent with a meningioma. Given patient's multiple comorbidities and underlying health issues, was chosen for no further workup, and she was discharged on 08/05/2018 to [facility] for rehab. She did have one trip to the ED during this time, to rule out DVT. She does have lower extremity edema, right greater than left. She also was treated for pneumonia during this time.She has been home about a week, she has improved with her rehab stay. She does have intermittent aphasia and word salad, but is able to answer simple questions and participate in conversation today with some word finding. She is able to ambulate short distances, but is mostly wheelchair bound, with timed toileting manage her incontinence, but still needs 24/7 care. Her care needs are complicated by her macular degeneration, as she is mostly blind. She reports she can see shadows. She has had some weight loss from 08/05 257 to 09/29 238.2 19.2 pounds with 7 %, she does have underlying diabetes, which she herself is managed prior. Her son Adin oversees her care, medications, management of her diabetes which is new to him. On discharge they did hire several hours a day from [employer], patient though does have limited savings and findings. Patient presents today is pleasant, able to enter into conversation, does have some word finding. Her blood sugars monitored by her son, have run on the fairly low side, her baseline Lantus at 32 units,, with NovoLog at 3 units with meals. He is only giving her that twice a day as she is only eating 2 full meals. She denies any pain, she does fatigue quite easily, her appetite is fair, she does have long-standing history of diarrhea currently controlled with her cholestyramine. She denies any peripheral neuropathy, and does have limited insight into her illness, but understands she has had a stroke. Past medical history includes coronary artery disease status post stenting, TIA, hypertension, hypothyroidism, long-standing diabetes type 2, chronic diarrhea, urinary incontinence, macular degeneration, osteoarthritis, history of thyroid cancer, 's mood hysterectomy, 6 section, right hip replacement, colonoscopy, appendectomy, tonsillectomy, cholecystectomy, and coronary artery stenting Social History - Living Situation Living arrangement: At home Living Situation: With family Support System: Her son Thiago has lived with her for 2 years, she is previously fairly independent, just needed some oversight, transportation, and assistance with meals. Her care needs have increased dramatically, residents care is providing bathing, he is managing her blood sugars, unfortunately he had just started a new job, does perceive he is going to have to give this up. Her son Jeremiah, who used to live in [place], now lives in [place] and is less able to provide support.Currently they have daily [employer] support for several hours, unfortunately so far they have had a different caregiver every day, this is caused some increased confusion and stress for both patient and son. Family history; patient has a daughter in [place] each, that she talks to on a regular basis, Jeremiah her son in [place], her son Jd who is lost to follow- up, as well as Adin who currently lives with her. Her father of a series of strokes. Is a remote history of smoking. No alcohol or illicit drug use Medications/Allergies - Medications Home Medications: Ambulatory Orders Medication Instructions Recorded Confirmed Losartan [Cozaar] 50 mg PO DAILY 08/02/18 10/28/18 Atenolol 50 mg PO DAILY 08/03/18 10/28/18 Latanoprost 0.005% Ophth Drops 1 drops EACHEYE DAILY 08/03/18 10/28/18 [Xalatan Ophth Drops] Levothyroxine Sodium [Synthroid] 175 mcg PO DAILY 08/03/18 10/28/18 PARoxetine HCl [Paroxetine HCl] 40 mg PO DAILY 08/03/18 10/28/18 Sitagliptin Phosphate [Januvia] 50 mg PO BID 08/03/18 10/28/18 Atorvastatin [Lipitor] 80 mg PO QPM 10/28/18 10/28/18 Cholestyramine [Questran] 1 packet PO BID 10/28/18 10/28/18 Insulin Glargine [Lantus Solostar] 28 units SQ QPM 10/28/18 10/28/18 Potassium Chloride 10 meq PO DAILY 10/28/18 10/28/18 - Allergies Allergies/Adverse Reactions: Allergies Allergy/AdvReac Type Severity Reaction Status Date / Time cephradine Allergy Unknown Verified 08/04/18 07:50 gatifloxacin [From Tequin] Allergy Unknown Verified 08/22/18 15:47 sulfamethoxazole Allergy Unknown Verified 08/04/18 07:50 [From Septra] trimethoprim [From Septra] Allergy Unknown Verified 08/04/18 07:50 Review of Systems - Constitutional Constitutional: reports: Fatigue, Weight loss (). denies: Fever, Chills - Eyes Eyes: reports: Vision loss, Other (sees shadows only) - Ears, Nose & Throat Ears, Nose & Throat: reports: Hearing loss (mild), Other (no dysphagia) - Cardiovascular Cardiovascular: reports: Decr. exercise tolerance. denies: Chest pain - Respiratory Respiratory: reports: SOB with exertion. denies: Cough, SOB at rest - Gastrointestinal Gastrointestinal: reports: Diarrhea (currently controlled with Questran; has been inc. and significant problem in past; son reports resistant to takin), Early satiety. denies: Abdominal pain, Nausea - Genitourinary Genitourinary: reports: Other (timed toileting able to avoid incontinenct) - Musculoskeletal Musculoskeletal: reports: Stiffness, Limited range of motion, Muscle weakness, Assistive devices (uses walker in bathroom), Transfer issues (up in wheelchair) - Integumentary Integumentary: reports: Dryness - Neurological Neurological: reports: General weakness, Memory problems, Other (word finding; son reports if fatigued more word salad) - Endocrine Endocrine: reports: Diabetes type 2 (10/26 88 am 10/25 75/93 10/24 86/97 10/23 87/136 10/22 80/164 10/21 87/137) - Hematologic/Lymphatic Hematologic/Lymphatic: reports: Recurrent infections (hx of pneumonia/UTI in last 4 months) - All Other Systems All Other Systems: reports: Reviewed and negative Physical Exam - Vital Signs Temperature: 97.8 C Pulse Rate: 63 Respiratory Rate: 18 O2 Saturation: 98 (ra @ rest) Blood Pressure: 158/78 - Physical Exam General Appearance: positive: No acute distress, Alert Eyes Bilateral: positive: Normal inspection ENT: positive: No signs of dehydration Neck: positive: No JVD, Trachea midline Cardiovascular: positive: Regular rate & rhythm Respiratory: positive: No respiratory distress, Rales (fine crackles in bases; improved with deep breathing;). negative: Wheezes, Rhonchi Abdomen: positive: Non-tender, Soft, Nml bowel sounds, Obese Skin: positive: Pallor, Dryness Extremities: positive: Pedal edema (right greater than left up to mid calf 1-2+; son reports patient has baseline) Neurologic/Psychiatric: positive: Mood/affect nml, Disoriented to time, Flat affect, Other (word finding) Palliative Care - POLST Patient has POLST: Yes POLST Status: DNR, Comfort Measures Pain: No pain Tiredness/Fatigue: Moderate (4-6) Drowsiness/Sedation: Mild (1-3) Nausea: None Depression: Mild (1-3) Anxiety: None Dyspnea: None Anorexia: Mild (1-3), Weight loss Sleep: Sleeps well Constipation: No Feelings of wellbeing/Perceived Quality of Life: Fair, Acceptable, Improved Performance Status: Patient previously was quite sedentary, had spent most her time in the recliner, would have her meals in her back room. She was ambulatory to the bathroom was fairly independent in her ADLs. Dyspnea supervision and help with meals. This is both related to short-term memory as well as her blindness. At this point in time she does need oversight, cueing for ambulation and standby assist for safety. She is able to ambulate into the bathroom once the wheelchair is at the doorway. She is up most of the day, she is being distracted and cared for for several hours during the day by the caregivers. Patient has had functional decline, but has managed to continue to be continent with time toileting. She is able to feed herself. - Palliative Care Discussion: Family's understanding, as patient has had a stroke, does have a brain tumor. Most likely she would not survive any kind of surgery, the focus in agreement with the 2 brothers and sister who are available, with a focus on comfort. Son Adin who is providing oversight and care, is somewhat overwhelmed, with limited understanding regarding her diabetes management and medical needs, but is working hard to provide support. Patient has limited funds, currently now has daily caregiving support. Very much interested in pursuing [place] PES, will get OPERATING ROOM NURSE out as soon as possible. In talking with patient, she has limited understanding of the series of events, but does remember being in [facility]. She does understand she has had a stroke, denies that she is depressed. When asked about her wishes, in the context of the MAURA ST, she reports "if I tomorrow I would be happy". She is long-term been a member of the [employer] latter day, she reports she "has her gaggle" of woman that she meets with on a regular basis, she is not interested in extending her life with extraordinary measures, and would like to focus on being comfortable at being in her own home. At this point in time receiving antibiotics is acceptable, but would like to avoid hospitalization and no medically assisted nutrition. Her son Jeremiah Aviles [phone] is listed as primary D POA, if he is not available are if need arise second document does document Thiago Aviles [phone] as D POA. Despite patient's word finding ability, patient is able to state her wishes, and these would be consistent with family values and decision making prior as well. Did have Thiago foote though in the context of participating in the conversation. Results - Lab Results Lab results reviewed: Yes Lab and Imaging Results: K 3.6 Impression and Recommendations - Palliative Care Impression: This is a 83-year-old woman who presented with an infarction and hemorrhagic stroke early July, found to have a mass most likely consistent with a meningioma. Patient has residual word finding, some aphasia, and lower extremity weakness. Her care is complicated by her comorbidities, she does present with diabetes type 2, blood sugars running on the lower side, hypertension, and macular degeneration with resulting in blindness. She is in her home setting, with significant increase in her care needs, both she and her family want to focus on comfort and quality of life issues. Palliative care to provide support and transition to home setting Recommendations/Counseling Done: 1. Diabetes type 2. Counseling provided regarding education with son, had Not received counseling in facility regarding management of her diabetes. Provided initial education. Patient's numbers fairly low for being 83. We will go ahead and decrease her Lantus from 32-28 units, and hold the NovoLog for now. Patient not consistently eating more than 2 meals a day. Patient does have a history of weight loss, son does feel like her appetite is improving. We will continue to provide education. 2. Hypertension. Patient's discharge instructions include losartan 50 mg daily, primary care provider has it as twice daily. Patient does have slightly elevated blood pressure 158/78, though in physician office it was 122/72 few days ago. Instructed son to get blood pressure cuff, he will monitor for 1 week, will add second losartan if indicated. 3. Hypokalemia. Patient discharged on potassium, has not been able to slat pickler a [facility] yet. Follow-up patient had been hypokalemic, last potassium level was at 3.6. Called to [facility], will go ahead and order 10 mEq, clarifying previous order. We will follow-up with labs in 2 weeks. Patient currently not on furosemide, has been in the past. 4. Lower extremity edema. Patient does have this chronic and long-term, son had been told to keep patient up, did discuss in the context of pressure relief, and fatigue as well as lower extremity edema, recommended at least daily one time in bed with feet elevated and off of her coccyx in her wheelchair. 5. Cerebral infarction, unspecified. Discussed with both patient and son, follow-up therapy in the home setting. Patient does not feel she would benefit nor participate, son in agreement given patient's past sedentary lifestyle. Counseling provided though to continue to be as active as possible, including ambulate longer distances than to the bathroom as tolerated. 6. Chronic diarrhea. Patient doing well on Questran, had had a C. difficile negative in facility. Patient with long standing diarrhea, suspect related to her diabetes. Counseling provided as patient resistant to taking, reviewed important to be able to manage her care in the home. 7. Advanced care planning. MAURA GALVAN completed, with review of goals of care, instructed to place on fridge. Goals remain to avoid hospitalization, no heroic measures, aware at high risk for recurrent stroke or sequela of a fall. Patient able to participate in conversation and express wishes, does present with decision-making capacity. Patient with limited resources, with continued high care needs, will refer OPERATING ROOM NURSE for community resources and caregiver support. Plan; son to continue with twice daily blood sugars, and daily blood pressure. Will telephone next week to adjust insulin and losartan. Home visit in 2 weeks. Time Spent: 85 minutes with greater than 50% of this done and counseling regarding management of diabetes, hypertension, advanced care planning and anticipatory guidance
== END 2018-10-26 11:31 | disposition home or self-care (01) ==
LOC: PC 11:30
PROVIDERS: ATTEND Nurse Practitioner Adult Health
DX: Z51.5 Encounter for palliative care (principal); D32.9 Benign neoplasm of meninges, unspecified; I69.920 Aphasia following unspecified cerebrovascular disease; I69.998 Other sequelae following unspecified cerebrovascular disease; E03.9 Hypothyroidism, unspecified; E11.9 Type 2 diabetes mellitus without complications; H35.30 Unspecified macular degeneration; M19.90 Unspecified osteoarthritis, unspecified site; I10 Essential (primary) hypertension; I25.10 Atherosclerotic heart disease of native coronary artery without angina pectoris; K52.9 Noninfective gastroenteritis and colitis, unspecified; R32 Unspecified urinary incontinence; H91.90 Unspecified hearing loss, unspecified ear; E87.6 Hypokalemia; R60.0 Localized edema; Z95.5 Presence of coronary angioplasty implant and graft; Z66 Do not resuscitate; Z85.850 Personal history of malignant neoplasm of thyroid; Z96.649 Presence of unspecified artificial hip joint; Z87.01 Personal history of pneumonia (recurrent); Z87.440 Personal history of urinary (tract) infections
CPT/HCPCS: 99345

== ENCOUNTER 2018-11-09 10:05 | Outpatient (CLI) | payer MEDICARE, OTHER ==
--- NOTE | 2018-11-09 11:46 | CONSULTATION NOTE ---
Palliative Care Follow Up - Referral Referring Provider: Dr. Osmar Peacock Time of Visit: 10:05-10:50 Referral setting: Home Referral Reason: Meningioma/Stroke/Pal Care - Information Sources Records reviewed: Previous records reviewed History/Review of Systems obtained from: Patient, Family (son Thiago present for visit) Exam limitations: Clinical condition (patient with short term memory deficits) - History of Present Illness Update Brief HPI Update: This is an 83-year-old woman who presented 08/02/2018 with acute mental status changes, on admission was found to have a UTI and presented with an acute stroke with infarction in her left posterior occipital lobe, some hemorrhage, as well as discovered a mass. The mass does measure 3.7 x 3.4 x 3.2 cm, and was noted to be consistent with a meningioma. Given patient's multiple comorbidities and underlying health issues, they had chosen no further workup, and she was discharged on 08/12 to [facility] for rehab. She has been home and supported by her son Adin, as well as paid caregivers from [employer], [facility] [employer]. She has continued to improve, she is able to ambulate short distances with a walker, she does need some cueing and direction, this is also related to her blindness. She does need 24/7 supervision. She does have intermittent aphasia, word salad, but is able to participate and seems brighter today. She has continued to run fairly low blood sugars in the a.m. 78-125 this a.m. And prior to dinner 123-167. Have been titrating back her Lantus the goal to avoid hypoglycemia, she is also off her Novolog. Her appetite is been less from her prior normal, she has had some weight loss, she usually eats toast for breakfast, skips lunch, and has a balanced dinner. Patient denies any symptoms of nausea, complains of some mild early satiety, no GERD, is aware is eating less but has no underlying etiology to attribute it to. Son has also been tracking blood pressure, as he has been hypertensive, today though she presents with 138/66 and a pulse of 58. On 11/02 we had decreased her Lantus to 25 units, and losartan was resumed at twice daily dosing of 50 mg as he had only been doing it daily. She is settling in, does find life a bit boring, feels like she has too much care with [facility], and [employer] working to decrease hours both to save expense and because need decreasing for intensity. Aware of her neuro deficits, does get frustrated, but both she and her son have not noticed an increase in symptoms, if anything she has improved from her baseline. Social History - Living Situation Living arrangement: At home Living Situation: With family Support System: Patient lives with her son Adin, who has supported her for the last 2 years. Up to this point she is just needed some oversight and transportation, and assistance with meals. Her care needs have increased dramatically, he has doing her blood sugars, meals, medications, the caregivers are doing her bathing. Her son Jeremiah who used to live in [place], now lives in [place] and is not involved in her care. There does seem to be some tension between the 2 brothers. Medications/Allergies - Medications Home Medications: Ambulatory Orders Medication Instructions Recorded Confirmed Losartan [Cozaar] 50 mg PO BID 08/02/18 11/09/18 Atenolol 50 mg PO DAILY 08/03/18 11/09/18 Latanoprost 0.005% Ophth Drops 1 drops EACHEYE DAILY 08/03/18 11/09/18 [Xalatan Ophth Drops] Levothyroxine Sodium [Synthroid] 175 mcg PO DAILY 08/03/18 11/09/18 PARoxetine HCl [Paroxetine HCl] 40 mg PO DAILY 08/03/18 11/09/18 Sitagliptin Phosphate [Januvia] 50 mg PO BID 08/03/18 11/09/18 Atorvastatin [Lipitor] 80 mg PO QPM 10/28/18 11/09/18 Cholestyramine [Questran] 1 packet PO BID 10/28/18 11/09/18 Insulin Glargine [Lantus Solostar] 23 units SQ QPM 10/28/18 11/09/18 Potassium Chloride 10 meq PO DAILY 10/28/18 11/09/18 - Allergies Allergies/Adverse Reactions: Allergies Allergy/AdvReac Type Severity Reaction Status Date / Time cephradine Allergy Unknown Verified 08/04/18 07:50 gatifloxacin [From Tequin] Allergy Unknown Verified 08/22/18 15:47 sulfamethoxazole Allergy Unknown Verified 08/04/18 07:50 [From Septra] trimethoprim [From Septra] Allergy Unknown Verified 08/04/18 07:50 Review of Systems - Constitutional Constitutional: reports: Fatigue (improving), Weight loss - Eyes Eyes: reports: Vision loss (macular degeneration) - Ears, Nose & Throat Ears, Nose & Throat: reports: Hearing loss - Cardiovascular Cardiovascular: reports: Edema, Decr. exercise tolerance - Respiratory Respiratory: denies: SOB at rest - Gastrointestinal Gastrointestinal: reports: Other (fair appetite). denies: Diarrhea, Nausea, Reflux/heartburn - Genitourinary Genitourinary: reports: Incontinence (occasional; timed toileting avoids inc. son/cg remind her every 2-3 hours) - Musculoskeletal Musculoskeletal: reports: Stiffness, Muscle weakness, Assistive devices (able to ambulate short distances with cueing with rolling walker) - Integumentary Integumentary: reports: Dryness - Neurological Neurological: reports: General weakness, Memory problems, Other (some word salad/aphasia) - Psychiatric Psychiatric: reports: Depression. denies: Anxiety - Endocrine Endocrine: reports: Diabetes type 2 - All Other Systems All Other Systems: reports: Reviewed and negative Physical Exam - Vital Signs Pulse Rate: 58 Respiratory Rate: 18 O2 Saturation: 98 (ra @ rest) Blood Pressure: 138/66 - Physical Exam General Appearance: positive: No acute distress Eyes Bilateral: positive: Normal inspection, Other (reports likes to keep her eyes closed) ENT: positive: No signs of dehydration Neck: positive: No JVD, Trachea midline Cardiovascular: positive: Regular rate & rhythm Respiratory: positive: No respiratory distress, Breath sounds nml Abdomen: positive: Non-tender, Soft, Nml bowel sounds, Obese Skin: positive: Dryness Extremities: positive: Pedal edema (bilateral pedal edema right greater than left; skilled nursing) Neurologic/Psychiatric: positive: Mood/affect nml, Disoriented to time, Weakness, Flat affect Palliative Care - POLST Patient has POLST: Yes POLST Status: DNR, Selective Treatment Pain: No pain Tiredness/Fatigue: Moderate (4-6) Drowsiness/Sedation: Comment (falls to sleep easily; reports is bored) Nausea: None Depression: Mild (1-3) Anxiety: None Dyspnea: None Anorexia: Mild (1-3) Sleep: Sleeps well Constipation: No Feelings of wellbeing/Perceived Quality of Life: Fair, Acceptable, No change Performance Status: Patient is able to get from sitting to standing, ambulate short distances with her front wheeled walker. Is interested in doing physical therapy again, had been at rehab. Had declined last visit but does not want to lose which she has. She does value her independence, particular if she is not going to have as much caregiving. We will go ahead and make arrangements for PT/OT support - Palliative Care Discussion: When asked what patient worries about, she reports "should not have anything to worry about", she perceives it is just too many hours in the day, does admit to being somewhat bored. Does fall to sleep during the day quite easily. She does express feelings of uselessness and helplessness. 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 We discussed possibly having the generator rebuilder come visit. She feels this would be of great benefit as this is something that she does miss. She does have poor insight into her decline, though she does not things have changed fairly dramatically with her hospitalization. She does have some short-term memory issues, and word finding but is able to participate in conversation. She was little more spontaneous in her answers, and initiated several comments today. Spoke with son Adin separately, has been working with [employer]CIAL [employer]ERTY MANAGER to look at hours as needed and support. He was not able to follow through on his hope to be able to work, but is still in contact. He does understand she needs 24/ supervision, discussed role of PT also may be able to help him with car transfers, as these are more difficult. Impression and Recommendations - Palliative Care Impression: This is an 83-year-old woman who presented with hemorrhagic CVA stroke early July, found to have a mass most likely consistent with meningioma. Patient does have some deficits with residual word finding, aphasia, and lower extremity weakness. Her care is complicated by her comorbidities, she does have type 2 diabetes, blood sugars are improving, hypertension, and macular degeneration with resulting blindness. She currently is in a home setting, with increased support from paid caregivers and son, goal is to focus on comfort and quality of life issues. Palliative care to provide support and transition to home setting. Recommendations/Counseling Done: 1. Hypertension. Patient discharge instructions included losartan 50 mg daily, spoke with son 11/02 blood pressures remained elevated, did increase to twice daily dosing of losartan. Patient still with slightly elevated blood pressures, instructed to bring log to primary care provider visit next week. Son is taking blood pressure daily, tested against my blood pressure cuff today, and was accurate. Will defer to PCP for additional titration of blood pressure meds. 2. Diabetes type 2. Patient's Lantus is continued to be titrated down, will decrease one more time to 23 units. Patient not consistently eating more than 2 meals a day, is keeping log. We will continue to monitor. 3. Lower extremity edema. Patient has long-term chronic lower extremity edema, have encouraged patient to be in bed at least daily to keep her feet elevated, tends to sit in her wheelchair to watch TV. Unclear if she has been compliant with this. 4. Cerebral infarction unspecified. Patient feeling a little bit more energetic, more interested in pursuing physical therapy at this point in time, does want to be more independent particularly with decreasing caregiving hours. We will go ahead and coordinate with PCP Dr. Peacock for orders for physical therapy. Patient would most likely benefit also from OT, for bathroom set up and other adaptable aids in her home setting. 5. Chronic diarrhea. Patient doing well on continued Questran. Son reports some resistance but has been overall compliant. 6. Advanced care planning. MAURA ST completed at last visit with review of goals of care. Patient continues to want to avoid hospitalization, patient is meeting with COMMERCIAL PROPERTY MANAGER regarding community resources and other support. Son presenting with some symptoms of caregiver fatigue, will continue to monitor with palliative care team. [id number]. It is with a taxing considerable effort for the patient leave the home, secondary to generalized weakness, blindness, and fatigue. Physical therapy for home exercise program, equipment needs, car transfers for medical appointments as well as strengthening. OT for home adaptation equipment, ADLs, and bathing set up. Time Spent: 45 minutes with greater than 50% done with counseling diabetic/HTN management, coordination of care, and anticipatory guidance.
== END 2018-11-09 10:06 | disposition home or self-care (01) ==
LOC: PC 10:05
PROVIDERS: ATTEND Nurse Practitioner Adult Health
DX: Z51.5 Encounter for palliative care (principal); I10 Essential (primary) hypertension; E11.9 Type 2 diabetes mellitus without complications; R60.0 Localized edema; I69.320 Aphasia following cerebral infarction; I69.398 Other sequelae of cerebral infarction; R53.1 Weakness; K52.9 Noninfective gastroenteritis and colitis, unspecified; D32.0 Benign neoplasm of cerebral meninges; H35.30 Unspecified macular degeneration; H54.7 Unspecified visual loss; R68.81 Early satiety; Z79.4 Long term (current) use of insulin; Z79.899 Other long term (current) drug therapy; Z66 Do not resuscitate
CPT/HCPCS: 99349

== ENCOUNTER 2018-11-15 11:26 | Outpatient (CLI) | payer MEDICARE, OTHER ==
[2018-11-15 19:39] LABS: ALBUMIN 3.6 g/dL (3.2-5.5); ALBUMIN/GLOBULIN RATIO 1.3 (1.0-2.2); BILIRUBIN,TOTAL 0.8 mg/dL (0.2-1.0); CREATININE 0.8 mg/dL (0.4-1.0); TOTAL PROTEIN 6.4 g/dL (6.7-8.2)
[2018-11-15 20:09] LABS: HB2 TOTAL 16.6 g/dL; HEMOGLOBIN A1C 0.8 g/dL; HEMOGLOBIN A1C % 6.6 % (4.6-6.2)
== END 2018-11-15 11:27 | disposition home or self-care (01) ==
LOC: LAB.WCP 11:26
PROVIDERS: ATTEND Family Medicine
DX: E11.51 Type 2 diabetes mellitus with diabetic peripheral angiopathy without gangrene (principal)
CPT/HCPCS: 36415; 80053; 83036

== ENCOUNTER 2018-12-15 16:15 | Outpatient (CLI) | payer MEDICARE, OTHER ==
--- NOTE | 2018-12-15 17:32 | CONSULTATION NOTE ---
Palliative Care Follow Up - Referral Referring Provider: Dr. Osmar Peacock Time of Visit: 8750-5397 Referral setting: Home Referral Reason: Stroke/Meningioma/DM - Information Sources Records reviewed: Previous records reviewed History/Review of Systems obtained from: Patient, Family (son Ray providing ROS support) Exam limitations: Clinical condition (patient with some STM issues/hx CVA) - History of Present Illness Update Brief HPI Update: This is an 83-year-old woman who recently in July present with acute stroke with infarction on her left posterior occipital lobe, but a new mass was found and thought to be consistent with meningioma. Given patient's multiple comorbidities and underlying health, they chose no further work-up. Patient most likely at her new baseline, she is ambulatory for short distances, toilet herself, though she is having increased incontinence. She is able to engage in conversation, short-term memory deficits, her most pronounced symptom from her stroke is her difficulty with word finding. At baseline she also is almost blind, and finds her current quality of life is somewhat "boring". Patient has been titrated down on her Lantus, secondary to weight loss, decreased intake. She is currently on 23 units, this does appear to be a good range for her, her recent A1c was 6.6%. Her a.m. blood sugars have been consistently between 109 and 130, her evening a little higher around 160. Her son does check her blood sugars and administer her Lantus. She has had no signs or symptoms of hypo-or hyperglycemia, her blood pressures have been in good range as well. Palliative care providing support for transition to home setting, son does feel more confident in managing her medications, have found a caregiver who is retired nurse Wednesday for bathing and support, and patient satisfied with her current care. Social History - Living Situation Living arrangement: At home Living Situation: With family Support System: Patient does have 4 children, Adin does provide the caregiving, the other 2 sons to call infrequently. She does have a daughter [place] to calls her daily. She has limited financial resources, but is able to pay for some increased support. Son feels current caregivers are providing good support, and does not need the extensive shifts of the rest care. The patient does appear to miss the [place]. She has had her friends visit from [employer]. Medications/Allergies - Medications Home Medications: Ambulatory Orders Medication Instructions Recorded Confirmed Losartan [Cozaar] 50 mg PO BID 08/02/18 12/15/18 Atenolol 50 mg PO DAILY 08/03/18 12/15/18 Latanoprost 0.005% Ophth Drops 1 drops EACHEYE DAILY 08/03/18 12/15/18 [Xalatan Ophth Drops] Levothyroxine Sodium [Synthroid] 175 mcg PO DAILY 08/03/18 12/15/18 PARoxetine HCl [Paroxetine HCl] 40 mg PO DAILY 08/03/18 12/15/18 Sitagliptin Phosphate [Januvia] 50 mg PO BID 08/03/18 12/15/18 Atorvastatin [Lipitor] 80 mg PO QPM 10/28/18 12/15/18 Cholestyramine [Questran] 1 packet PO BID 10/28/18 12/15/18 Insulin Glargine [Lantus Solostar] 23 units SQ QPM 10/28/18 12/15/18 Potassium Chloride 10 meq PO DAILY 10/28/18 12/15/18 - Allergies Allergies/Adverse Reactions: Allergies Allergy/AdvReac Type Severity Reaction Status Date / Time cephradine Allergy Unknown Verified 08/04/18 07:50 gatifloxacin [From Tequin] Allergy Unknown Verified 08/22/18 15:47 sulfamethoxazole Allergy Unknown Verified 08/04/18 07:50 [From Septra] trimethoprim [From Septra] Allergy Unknown Verified 08/04/18 07:50 Review of Systems - Constitutional Constitutional: reports: Fatigue, Weight loss - Eyes Eyes: reports: Vision loss (can see outlines only) - Ears, Nose & Throat Ears, Nose & Throat: reports: Hearing loss - Cardiovascular Cardiovascular: denies: Edema - Respiratory Respiratory: denies: SOB at rest - Gastrointestinal Gastrointestinal: reports: Good appetite. denies: Diarrhea (currently controlled), Nausea - Genitourinary Genitourinary: reports: Incontinence (at night; with timed toileting better) - Musculoskeletal Musculoskeletal: reports: Stiffness, Muscle weakness, Assistive devices (uses walker) - Integumentary Integumentary: reports: Dryness - Neurological Neurological: reports: General weakness, Memory problems - Psychiatric Psychiatric: denies: Depression, Anxiety - Endocrine Endocrine: reports: Diabetes type 2, Hypothyroidism - Hematologic/Lymphatic Hematologic/Lymphatic: denies: Recurrent infections - All Other Systems All Other Systems: reports: Reviewed and negative Physical Exam - Vital Signs Temperature: 36.2 C Pulse Rate: 54 Respiratory Rate: 18 O2 Saturation: 98 (ra @ rest) Blood Pressure: 143/85 - Physical Exam General Appearance: positive: No acute distress, Alert Eyes Bilateral: positive: Other (does not focus) ENT: positive: No signs of dehydration Neck: positive: No JVD, Trachea midline Cardiovascular: positive: Regular rate & rhythm Respiratory: positive: No respiratory distress, Breath sounds nml Abdomen: positive: Non-tender, Soft, Nml bowel sounds Skin: positive: Pallor, Dryness Extremities: positive: No pedal edema Neurologic/Psychiatric: positive: Mood/affect nml, Disoriented to time, Weakness, Other (difficulty with word finding; finds this very frustrating) Palliative Care - POLST Patient has POLST: Yes POLST Status: DNR, Comfort Measures Pain: No pain Tiredness/Fatigue: Moderate (4-6) Drowsiness/Sedation: Moderate (4-6) Nausea: None Depression: Mild (1-3) Anxiety: None Dyspnea: None Anorexia: None Sleep: Sleeps well Constipation: No Feelings of wellbeing/Perceived Quality of Life: Fair, Acceptable, Worsening (since stroke) Performance Status: Patient able to ambulate short distances, does ambulate into the bathroom. She does need assistance with bathing. She is able to feed herself but needs meal assist as well as IAD L assist from her son. - Palliative Care Discussion: Patient expressed wishes that she wishes she had transition to end-of-life with her latest episode, though she does admit to feeling good now, that she is much more happy at home, she just frustrated and feeling quite bored with the limitations given her current condition. They do not have private caregivers, she finds Elaine quite stimulating and a good friend, she is coming Wednesday, there is another person his come intermittently just to visit and can cover for Stephanie when not available. She reports she listens to TV, she sleeps a lot related to "total boredom", she does have her "gnosticism gals", and visit she finds this very fun for her. She reports his son is not a talker, so she does feel somewhat isolated. She is quite grateful but worried about the impact on her son's life given the fact she needs 24 7 care. Results - Lab Results Lab results reviewed: Yes Impression and Recommendations - Palliative Care Impression: This is an 83-year-old woman who presented with a hemorrhagic CVA early July, has a mass consistent most likely with meningioma, she does have deficits with residual word finding, aphasia, and some lower extremity weakness. She does seem to found her "new normal", her blood sugars are improved, her macular degeneration resulting in blindness does impact her ability to participate in her care. She is currently in her home setting, with support from her son and paid caregivers. Goals remain to focus on comfort and quality of life issues. Palliative care to provide support and anticipatory guidance. Recommendations/Counseling Done: 1.Hypertension. Patient currently being well controlled on her regimen, instructed to just take blood pressure daily, does not need to do further monitoring at this point in time. 2 Diabetes type 2. Patient's Lantus is currently 23 units, this does appear to be a good dose for her, she had a A1c drawn on 11/15 it was 6.6. Her blood sugars remain consistently between 100 930 in a.m., little elevated in the evenings. Discussed to decrease blood sugar monitoring to test a.m. Her fingers are getting sore, and no further adjustments needed at this point in time. 3. Cerebral infarction, unspecified. Patient had been ordered physical therapy, now feels currently she would most likely not to participate. She does have a new caregiver, but is taking her on frequent walks, she is trying to stay active herself with ambulating around the mobile home. She does not want further update to exercise program, will discontinue pursuing home health services. If patient takes a decline, can revisit. 4. Chronic diarrhea. Patient continues to do well on question, patient has been compliant and no further resistance. 5. Advanced care planning. POLST is completed with DNA R and comfort measures, patient continues to want to avoid hospitalization. They have changed up caregiving situation, this is improved sons concerns regarding finances and appropriate support. This point in time patient does appear stable, son knows to call if there is any concerns. Home visit set up for early January. Time Spent: 45 minutes with visit 50% of this done in counseling regarding management of chronic diseases, anticipatory guidance, counseling regarding goals of care.
== END 2018-12-15 16:16 | disposition home or self-care (01) ==
LOC: PC 16:15
PROVIDERS: ATTEND Nurse Practitioner Adult Health
DX: Z51.5 Encounter for palliative care (principal); D32.9 Benign neoplasm of meninges, unspecified; I69.928 Other speech and language deficits following unspecified cerebrovascular disease; I69.920 Aphasia following unspecified cerebrovascular disease; I69.998 Other sequelae following unspecified cerebrovascular disease; H54.7 Unspecified visual loss; H91.90 Unspecified hearing loss, unspecified ear; R32 Unspecified urinary incontinence; E11.9 Type 2 diabetes mellitus without complications; I10 Essential (primary) hypertension; E03.9 Hypothyroidism, unspecified; K52.9 Noninfective gastroenteritis and colitis, unspecified; Z66 Do not resuscitate; Z79.4 Long term (current) use of insulin
CPT/HCPCS: 99349

== ENCOUNTER 2019-01-25 17:45 | Outpatient (CLI) | payer MEDICARE, OTHER ==
--- NOTE | 2019-01-25 18:06 | CONSULTATION NOTE ---
Palliative Care Follow Up - Referral Referring Provider: Dr. Osmar Peacock Time of Visit: [id number] Referral setting: Home Referral Reason: Stroke/Meningioma/DM - Information Sources Records reviewed: Previous records reviewed History/Review of Systems obtained from: Patient, Family (son primary caregiver Thiago present for visit) Exam limitations: Clinical condition (patient with STM deficits; but able to engage in conversation; some word finding difficulties) - History of Present Illness Update Brief HPI Update: This is an 83-year-old woman who recently in July presented to [facility] with acute stroke with infarction on her left posterior occipital lobe, a new mass was found and thought to be consistent with a meningioma during work-up. Given patient's multiple comorbidities, advanced age, underlying health they chose no further work-up. Patient continues at her current baseline, no decline in her functional status she is able to ambulate short distances with a walker and supervision, this is mostly related to her blindness. She is able to toilet herself, she does have some incontinence particularly at night. She is able to engage in conversation, has short-term memory deficits, most pronounced symptom is her difficulty with word finding. She does have some mild depressive symptom s, and wonders why she is still here. Patient has been titrated down slowly on her Lantus secondary to weight loss and decreased intake. She has been on 23 units, though still running often below 10 0. She has had no signs or symptoms of hypo-or hyperglycemia, her blood pressure has been in at 135-160/85 range, before medications. Palliative care providing support her transition to home setting, patient does appear to be somewhat stabilized, son Thiago presents with severe caregiver fatigue and burnout. They do have a caregiver who is a retired nurse, for 2 hours a day Wednesday and Wednesday for bathing and support. Patient does have some intermittent visitors, but for the most part finds her current quality of life is somewhat lacking. Social History - Living Situation Living arrangement: At home Living Situation: With family Support System: Lives in her trailer supported by her son Thiago, she does have a 4 children, one son has . She is reflecting with feelings of grief and loss has it is near his anniversary 5 years ago. Adin does most of the caregiving, the other 2 sons call infrequently. She does have a daughter who calls her about every other day from the [facility]. She does have limited financial resources, does have enough to pay for intermittent care, but not enough to relocate into assisted living. Patient is current care needs are being met, but son has very little respite nor is choosing to arrange for it. Medications/Allergies - Medications Home Medications: Ambulatory Orders Medication Instructions Recorded Confirmed Losartan [Cozaar] 50 mg PO BID 08/02/18 01/26/19 Atenolol 50 mg PO DAILY 08/03/18 01/26/19 Latanoprost 0.005% Ophth Drops 1 drops EACHEYE DAILY 08/03/18 01/26/19 [Xalatan Ophth Drops] Levothyroxine Sodium [Synthroid] 175 mcg PO DAILY 08/03/18 01/26/19 PARoxetine HCl [Paroxetine HCl] 40 mg PO DAILY 08/03/18 01/26/19 Sitagliptin Phosphate [Januvia] 50 mg PO BID 08/03/18 01/26/19 Atorvastatin [Lipitor] 80 mg PO QPM 10/28/18 01/26/19 Cholestyramine [Questran] 1 packet PO BID 10/28/18 01/26/19 Insulin Glargine [Lantus Solostar] 20 units SQ QPM 10/28/18 01/26/19 Potassium Chloride 10 meq PO DAILY 10/28/18 01/26/19 - Allergies Allergies/Adverse Reactions: Allergies Allergy/AdvReac Type Severity Reaction Status Date / Time cephradine Allergy Unknown Verified 08/04/18 07:50 gatifloxacin [From Tequin] Allergy Unknown Verified 08/22/18 15:47 sulfamethoxazole Allergy Unknown Verified 08/04/18 07:50 [From Septra] trimethoprim [From Septra] Allergy Unknown Verified 08/04/18 07:50 Review of Systems - Constitutional Constitutional: reports: Fatigue, Weight loss (unable to weigh; patient with fleshy arms not able to measure accurately; appears stable from last visit). denies: Fever, Chills - Eyes Eyes: reports: Blurred vision, Vision loss - Ears, Nose & Throat Ears, Nose & Throat: reports: Hearing loss (mild) - Cardiovascular Cardiovascular: denies: Edema - Respiratory Respiratory: denies: SOB at rest - Gastrointestinal Gastrointestinal: reports: Good appetite. denies: Constipation, Diarrhea, Nausea, Reflux/heartburn - Genitourinary Genitourinary: reports: Incontinence (mostly at night; wears depends/pads during day) - Musculoskeletal Musculoskeletal: reports: Stiffness, Muscle weakness, Assistive devices (uses walker for short distances; is missing a brake; uses wheelchair in home rolls herself) - Integumentary Integumentary: reports: Dryness, Nail changes (saw hand sole sewer recently) - Neurological Neurological: reports: General weakness, Memory problems (mild) - Psychiatric Psychiatric: reports: Depression. denies: Anxiety - Endocrine Endocrine: reports: Diabetes type 2, Hypothyroidism - Hematologic/Lymphatic Hematologic/Lymphatic: denies: Recurrent infections - All Other Systems All Other Systems: reports: Reviewed and negative Physical Exam - Vital Signs Temperature: 97.1 C Pulse Rate: 56 Respiratory Rate: 18 O2 Saturation: 95 (ra @ rest) Blood Pressure: 122/82 - Physical Exam General Appearance: positive: No acute distress, Alert Eyes Bilateral: positive: Normal inspection, Other (patient aware; but closes eyes in conversation) ENT: positive: No signs of dehydration Neck: positive: No JVD, Trachea midline Cardiovascular: positive: Regular rate & rhythm Respiratory: positive: No respiratory distress, Breath sounds nml Abdomen: positive: Non-tender, Soft, Nml bowel sounds, Obese Skin: positive: Pallor, Dryness, Other (moist but no rash under breasts; reported skin tag on leg but unable to find without undressing; not bothering her) Extremities: positive: No pedal edema Neurologic/Psychiatric: positive: Mood/affect nml, Disoriented to time, Weakness, Other (expresses depressive symptoms; is sad at anniversary of brother's ) Palliative Care - POLST Patient has POLST: Yes POLST Status: DNR, Comfort Measures Pain: No pain Tiredness/Fatigue: Moderate (4-6) Drowsiness/Sedation: Mild (1-3) Nausea: None Depression: Moderate (4-6) Anxiety: None Dyspnea: None Anorexia: Mild (1-3) Sleep: Sleeps well Constipation: No Feelings of wellbeing/Perceived Quality of Life: Fair, Acceptable, No change Performance Status: Patient is quite sedentary, though does ambulate for short distances with her walker on nice days accompanied by her caregiver. She is getting bathing assist, she is able to self feed and maneuver somewhat around the apartment. She does use a wheelchair and rolls it to the dining table. She does spend most of her time in her room watching TV, she does have a few visits from friends.But it is quite difficult to get her in and out of the car and so is mostly isolated at home. - Palliative Care Discussion: Patient continues to express grief that she is still here, was switching given her current quality of life the stroke it taken her. She sees her future and current quality of life is quite limited. She does feel bad that Thiago has to care for her, and is impacting his quality of life. She does not want to do anything to extend her life, she does not also express any desire to hasten her current decline. She admits to depressive symptoms, but not to persistent hopelessness or helplessness. Son Thiago is expressing significant feelings of caregiver fatigue, he has no respite nor support from his family as far as decreasing his burden at all. He reports she has some money, but not enough to place her, he feels that his life is quite limited and it is essentially has put anything for himself on hold. Impression and Recommendations - Palliative Care Impression: This is an 83-year-old woman who presented with a hemorrhagic CVA early July, and a mass consistent most likely with meningioma. She does not have any progressive neuro deficit signs, so I suspect this is probably true. She does have deficits with residual word finding, aphasia, and some lower extremity weakness. She is quite isolated, not very active, her blood sugars have continue to improve, but are rather on the low side for her age. Her macular degeneration resulting in blindness does not pack her ability to participate in her care. She is currently in her home setting with support from her son. Goals remain to focus on comfort and quality of life issues not to prolong her life her suffering. Palliative care to provide intermittent support and anticipatory guidance. Recommendations/Counseling Done: 1. Diabetes type 2. Patient's blood sugars are mostly running under 100, will go ahead and decrease it to 20 units. I suspect she has had some further weight loss, and continues to eat smaller amounts, but is eating consistently. They are doing daily blood sugars, will continue currently. 2. Hypertension. Patient currently being modestly controlled on her current regimen. Is continuing to take blood pressure daily, and keeping a log. No further adjustments. 3. Cerebral infarction, unspecified. Patient has been doing small frequent walks, tries to stay somewhat active ambulating around her own home. Patient currently still declines physical therapy at this point in time. No further neuro deficits noted, patient appears to have plateaued and found new normal. 4. Caregiver fatigue. Medical palliative care addiction social worker has checked in with son, Really unwilling to make any other further adjustments or spend more money. He does report she has enough resources at this point in time, and to continue with her current plan of care. Though he himself has not received any respite. Encouraged him to consider spending the money to take a little bit more time out for himself, reports he is "cheap". Will check in and see the status if volunteers are available from the hospice team. 5. Advanced care planning. POLST is completed with DNA R and comfort measures, patient continues to want to avoid hospitalization or prolongation of her current situation if an acute situation were to arise. Will see patient in 6 to 7 weeks, then decrease to q. 3-month visits. Time Spent: 45 minutes is greater than 50% of this done in counseling regarding symptom management, management of chronic illness, and anticipatory guidance as well as support for caregiver fatigue.
== END 2019-01-25 17:46 | disposition home or self-care (01) ==
LOC: PC 17:45
PROVIDERS: ATTEND Nurse Practitioner Adult Health
DX: Z51.5 Encounter for palliative care (principal); E11.9 Type 2 diabetes mellitus without complications; I10 Essential (primary) hypertension; R32 Unspecified urinary incontinence; R41.3 Other amnesia; H54.7 Unspecified visual loss; R63.4 Abnormal weight loss; G93.9 Disorder of brain, unspecified; Z79.4 Long term (current) use of insulin; Z66 Do not resuscitate; Z86.73 Personal history of transient ischemic attack (TIA), and cerebral infarction without residual deficits
CPT/HCPCS: 99349

== ENCOUNTER 2019-03-16 13:44 | Outpatient (CLI) | payer MEDICARE, OTHER ==
--- NOTE | 2019-03-16 13:50 | CONSULTATION NOTE ---
Palliative Care Follow Up - Referral Referring Provider: Dr. Osmar Peacock Time of Visit: [id number] Referral setting: Home - Information Sources Records reviewed: Previous records reviewed History/Review of Systems obtained from: Patient, Family (son Thiago present) Exam limitations: Clinical condition (patient with STM deficits) - History of Present Illness Update Brief HPI Update: This is an 83-year-old woman who has a history of an acute stroke with infarction on her left posterior occipital lobe as of July 2008, and her work-up a new mass was found and thought to be consistent with a meningioma. She is actually been fairly stable until 03/07 she did have an episode of confusion, with some hallucinations, her blood sugar was a little bit elevated at 198 but her level of mental status change would not really be accounted for this. This though did clear within 24 hours, most likely I suspect was a TIA. She does have ongoing cognitive decline, she is able to have conversation, but she does have short-term memory deficits. She is oriented to place but not time, she is poor recall of objects, still having significant word finding issues, and very little insight into her impulsivity and short-term memory deficits. She is quite up in arms today, feeling is not fair to her son, that he cannot leave her alone. He though does not feels safe, she does not always remember what her limitations are. She leads a fairly sedentary life, she has not had any falls, she does appear to be having some weight loss though we do not have any documentation as she does not have a scale. She has been titrated down slowly on her Lantus, she is still running around 95 220, she has not had any signs or symptoms of hypo-or hyperglycemia. Her blood pressure is been in the adequate range, though he does take it prior to blood pressure meds. At today's visit is 128/80. Patient does express depression and anxiety, finding her quality of life as limiting, and feels she would be ready when it is "her time". Social History - Living Situation Living arrangement: At home Living Situation: With family Support System: Her caregiver is her son Thiago, he does hire some assistance Wednesday for bathing and support for his mom, this is only a couple hours at a time. He is quite anxious not to spend too much, though has been encouraged multiple times to look at some respite. He does present with caregiver burnout and feeling somewhat stuck in his role. Medications/Allergies - Medications Home Medications: Ambulatory Orders Medication Instructions Recorded Confirmed Losartan [Cozaar] 50 mg PO BID 08/02/18 03/16/19 Atenolol 50 mg PO DAILY 08/03/18 03/16/19 Latanoprost 0.005% Ophth Drops 1 drops EACHEYE DAILY 08/03/18 03/16/19 [Xalatan Ophth Drops] Levothyroxine Sodium [Synthroid] 175 mcg PO DAILY 08/03/18 03/16/19 PARoxetine HCl [Paroxetine HCl] 40 mg PO DAILY 08/03/18 03/16/19 Sitagliptin Phosphate [Januvia] 50 mg PO BID 08/03/18 03/16/19 Atorvastatin [Lipitor] 80 mg PO QPM 10/28/18 03/16/19 Cholestyramine [Questran] 1 packet PO BID 10/28/18 03/16/19 Insulin Glargine [Lantus Solostar] 20 units SQ QPM 10/28/18 03/16/19 Potassium Chloride 10 meq PO DAILY 10/28/18 03/16/19 - Allergies Allergies/Adverse Reactions: Allergies Allergy/AdvReac Type Severity Reaction Status Date / Time cephradine Allergy Unknown Verified 08/04/18 07:50 gatifloxacin [From Tequin] Allergy Unknown Verified 08/22/18 15:47 sulfamethoxazole Allergy Unknown Verified 08/04/18 07:50 [From Septra] trimethoprim [From Septra] Allergy Unknown Verified 08/04/18 07:50 Review of Systems - Constitutional Constitutional: reports: Fatigue, Weight loss (no scale but looks thinner/patient feels clothes are looser). denies: Fever, Chills - Eyes Eyes: reports: Vision loss (macular degeneration; shadows only in right eye) - Ears, Nose & Throat Ears, Nose & Throat: reports: Hearing loss (mild) - Cardiovascular Cardiovascular: reports: Decr. exercise tolerance - Respiratory Respiratory: denies: SOB at rest - Gastrointestinal Gastrointestinal: reports: Early satiety (decreased intake but no specific symptoms). denies: Diarrhea, Reflux/heartburn - Genitourinary Genitourinary: reports: Incontinence - Musculoskeletal Musculoskeletal: reports: Stiffness, Muscle weakness, Transfer issues (uses w/c around house; walker in bedroom/bathroom; can walk short distances supervised) - Integumentary Integumentary: reports: Dryness - Neurological Neurological: reports: Memory problems (worsening had one episode of acute confusion for 24 hours; bs elevated but not higher than 159) - Psychiatric Psychiatric: reports: Depression, Anxiety, Hallucinations (one day) - Endocrine Endocrine: reports: Diabetes type 2 (FBS one low 57; others 90-120), Hypothyroidism - Hematologic/Lymphatic Hematologic/Lymphatic: denies: Recurrent infections - All Other Systems All Other Systems: reports: Other (limited ROS from patients STM issues) Physical Exam - Vital Signs Temperature: 96.4 C Pulse Rate: 60 Respiratory Rate: 16 O2 Saturation: 98 (ra @ rest) Blood Pressure: 128/80 - Physical Exam General Appearance: positive: No acute distress, Alert Eyes Bilateral: positive: No lid inflammation, Conjunctivae nml, Other (closes eyes when talking) ENT: positive: No signs of dehydration Neck: positive: No JVD, Trachea midline Cardiovascular: positive: Regular rate & rhythm Respiratory: positive: No respiratory distress, Breath sounds nml Abdomen: positive: Soft, Nml bowel sounds, Obese, Other (clothes are fitting looser around abdomen) Skin: positive: Pallor, Dryness Extremities: positive: Pedal edema (trace bilateral) Neurologic/Psychiatric: positive: Disoriented to time, Depressed mood/affect, Flat affect Palliative Care - POLST Patient has POLST: Yes POLST Status: DNR, Comfort Measures Pain: No pain Tiredness/Fatigue: Moderate (4-6) Drowsiness/Sedation: Moderate (4-6), Comment (does easily sleep through day; attributes to boredom) Nausea: None Depression: Moderate (4-6) Anxiety: Moderate (4-6), Comment (son reports patient is a baseline worrier; continues to perseverate on various things) Dyspnea: None Anorexia: Mild (1-3), Weight loss (unable to document) Sleep: Sleeps well Constipation: No Feelings of wellbeing/Perceived Quality of Life: Fair, Acceptable Performance Status: Patient is able to toilet and do her own joe-care, her bathroom is quite close, she uses her wheelchair around the home, and her walker back and forth to the bathroom. She does take naps, with her feet up. She is getting bathing assist, she is able to self feed. She does get very few visits from friends, but it is very difficult to get her in and out of the car and so she is isolated at home. - Palliative Care Discussion: Patient continues to struggle with her dependence on her son, does not feel it is fair to him that nobody else is "helping out". She reports her life is really limited, she gets up in the morning has breakfast eats half, use the other half at noon, and they have dinner around 3 PM. She does feel like her care needs to be met, but feels lonely and somewhat depressed. Patient has very little little insight into her limitations, she feels like she is ready to go, but understands its "in the Lord's time". She does have support coming from her pentec[employer] once a month, she really enjoys these visits. Her colin is important to her, she is quite interested in having the palliative care hr shared services consultant visit. She is trying to find meaning in her day-to-day existence with touch she does perceive is poor quality of life. She was quite active and engaged prior to the last couple years. Son Thiago continues to express feelings of caregiver fatigue, has not been having any respite or support from his family. Impression and Recommendations - Palliative Care Impression: This is an 83-year-old woman who has had a hemorrhagic CVA early July, and mass was found consistent most likely with meningioma. She does have some progressive neuro cognitive deficits, has had one episode of acute confusion most likely a TIA a couple weeks ago. She does have some deficits with residual word finding aphasia, and poor insight into her current condition. 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 She is currently in her home setting, which is where she wants to be, with a support from her son. Goals remain to focus on comfort and quality of life issues and not to prolong her life or suffering if any acute situation were to arise. Palliative care to continue to provide intermittent support and anticipatory guidance. Recommendations/Counseling Done: 1. Diabetes type 2. Patient's blood sugars are running a little bit higher but still in 295 and 120. We will leave it at Lantus 20 units. I suspect this is related to her ongoing weight loss, and she does eat smaller amounts. She is eating consistently and she is not concerned. They are doing daily blood sugars, will continue monitoring. 3. Cerebral infarction, unspecified. Patient has been more sedentary, she reports she is "lazy" and not walking as much. Her caregiver comes Wednesday would recommend that she continue with her walking program, she does want to stay as independent as possible. Currently she is able to transfer and toilet herself. Concern patient may have had another TIA, she does present with a little bit more cognitive decline today. 4. Caregiver fatigue. Son really unwilling to hire any further respite care, his current caregiver is willing to provide a longer break. He has not asked his brothers for support or respite, encouraged to reach out though suspect will not related to family dynamics. 5. Advanced care planning. POLST is completed with DNA R and comfort measures, patient does not want hospitalization or prolongation of her current situation if an acute situation was to rise. Patient continues to struggle both physically and emotionally, her spiritual colin is of importance to her. She would like to see the palliative care hr shared services consultant, will go ahead and make that referral. Time Spent: 55 minutes with greater than 50% of this done in counseling and follow-up regarding neuro deficits, patient's limitations, and anticipatory guidance.
== END 2019-03-16 13:45 | disposition home or self-care (01) ==
LOC: PC 13:44
PROVIDERS: ATTEND Nurse Practitioner Adult Health
DX: Z51.5 Encounter for palliative care (principal); I69.320 Aphasia following cerebral infarction; I69.311 Memory deficit following cerebral infarction; R93.89 Abnormal findings on diagnostic imaging of other specified body structures; M62.81 Muscle weakness (generalized); E11.9 Type 2 diabetes mellitus without complications; H35.30 Unspecified macular degeneration; Z79.4 Long term (current) use of insulin; Z79.899 Other long term (current) drug therapy; Z66 Do not resuscitate
CPT/HCPCS: 99349

== ENCOUNTER 2019-04-14 11:10 | Outpatient (CLI) | payer MEDICARE, OTHER ==
--- NOTE | 2019-04-16 10:57 | CONSULTATION NOTE ---
Palliative Care Follow Up - Referral Referring Provider: Dr. Osmar Peacock Time of Visit: Wednesday04/14/2019 11:20-12 Referral setting: Home Referral Reason: F//up UTI; S/P Stroke; meningioma - Information Sources Records reviewed: Previous records reviewed History/Review of Systems obtained from: Patient, Family (son Ray) Exam limitations: Clinical condition (patient with STM deficits) - History of Present Illness Update Brief HPI Update: This is an 83-year-old woman who has a history of acute stroke with infarction to her left posterior occipital lobe in July 2018, and her work-up found a new mass thought to be consistent with a meningioma. They chose not to make any further plans for work-up. Patient most recently presented with some increased confusion, foul urine, and lethargy. This is identified by her caregiver, who is a nurse. Unable to get a clean-catch specimen, was treated empirically with nitrofurantoin 100 mg twice a day for 5 days with good response. Meeting with patient today, she denies any dysuria, she did not recognize she had a UTI, but does admit to ongoing intermittent confusion which is quite frustrating for her. Her blood sugars run 97-1 32 fasting, her appetite is been good, she is legally blind and finds her life quite boring. She is not having trouble with swallowing, no chest pain, no shortness of breath she presents with trace lower extremity edema. She is very much enjoyed her meetings with the palliative care insurance sales representative. She does require 24/7 supervision at most times this patient is quite impulsive and has very little insight into her limitations.She is quite tearful when she describes the burden on her son, though is not suicidal, she is hoping the "good Lord takes her soon". Social History - Living Situation Living arrangement: At home Living Situation: With family Support System: Patient's son Thiago, provides 24/7 support and oversight. He does not provide personal care or change her depends, patient is able to toilet, though is incontinent. He does have someone come in and bathe and clean her 3 times a week, which she really very much enjoys. This though does put her at high risk for recurrent UTIs, will continue to monitor if problematic. Patient has limited finances, would most likely benefit from being in assisted living, but patient does share she wants to be home. Medications/Allergies - Medications Home Medications: Ambulatory Orders Medication Instructions Recorded Confirmed Losartan [Cozaar] 50 mg PO BID 08/02/18 04/16/19 Atenolol 50 mg PO DAILY 08/03/18 04/16/19 Latanoprost 0.005% Ophth Drops 1 drops EACHEYE DAILY 08/03/18 04/16/19 [Xalatan Ophth Drops] Levothyroxine Sodium [Synthroid] 175 mcg PO DAILY 08/03/18 04/16/19 PARoxetine HCl [Paroxetine HCl] 40 mg PO DAILY 08/03/18 04/16/19 Sitagliptin Phosphate [Januvia] 50 mg PO BID 08/03/18 04/16/19 Atorvastatin [Lipitor] 80 mg PO QPM 10/28/18 04/16/19 Cholestyramine [Questran] 1 packet PO BID 10/28/18 04/16/19 Insulin Glargine [Lantus Solostar] 18 units SQ QPM 10/28/18 04/16/19 Potassium Chloride 10 meq PO DAILY 10/28/18 04/16/19 - Allergies Allergies/Adverse Reactions: Allergies Allergy/AdvReac Type Severity Reaction Status Date / Time cephradine Allergy Unknown Verified 08/04/18 07:50 gatifloxacin [From Tequin] Allergy Unknown Verified 08/22/18 15:47 sulfamethoxazole Allergy Unknown Verified 08/04/18 07:50 [From Septra] trimethoprim [From Septra] Allergy Unknown Verified 08/04/18 07:50 Review of Systems - Constitutional Constitutional: reports: Fatigue, Weight stable. denies: Fever, Chills - Eyes Eyes: reports: Vision loss - Ears, Nose & Throat Ears, Nose & Throat: reports: Hearing loss (mild) - Respiratory Respiratory: denies: SOB at rest - Gastrointestinal Gastrointestinal: reports: Abdominal pain, Good appetite. denies: Constipation, Nausea - Genitourinary Genitourinary: reports: Incontinence. denies: Dysuria - Musculoskeletal Musculoskeletal: reports: Muscle weakness, Assistive devices (uses walker to get to BR or with supervision), Transfer issues (uses w/c in home for mobililty) - Integumentary Integumentary: reports: Dryness - Neurological Neurological: reports: General weakness, Memory problems, Other (word finding; STM) - Psychiatric Psychiatric: reports: Depression. denies: Anxiety - Endocrine Endocrine: reports: Diabetes type 2 - Hematologic/Lymphatic Hematologic/Lymphatic: reports: Recurrent infections (recent UTI) - All Other Systems All Other Systems: reports: Other (limited ROS with memory) Physical Exam - Vital Signs Temperature: 97.5 C Pulse Rate: 63 Respiratory Rate: 18 O2 Saturation: 98 (ra @ rest) Blood Pressure: 118/58 - Physical Exam General Appearance: positive: No acute distress, Alert Eyes Bilateral: positive: Other (keeps her eyes closed most of visit) ENT: positive: No signs of dehydration Neck: positive: No JVD, Trachea midline Cardiovascular: positive: Regular rate & rhythm Respiratory: positive: No respiratory distress, Breath sounds nml Abdomen: positive: Soft, Nml bowel sounds, Obese Skin: positive: Dryness Extremities: positive: Pedal edema (trace pedal edema; sits large portion of day with feet dependent) Neurologic/Psychiatric: positive: Oriented x3, Depressed mood/affect, Flat affect Palliative Care - POLST Patient has POLST: Yes POLST Status: DNR, Comfort Measures Pain: No pain Tiredness/Fatigue: Mild (1-3) Drowsiness/Sedation: Mild (1-3) Nausea: None Depression: Moderate (4-6) Anxiety: Mild (1-3) Dyspnea: None Anorexia: None Sleep: Sleeps well Constipation: No Feelings of wellbeing/Perceived Quality of Life: Fair, No change Performance Status: Patient is dependent for bathing, is able to toilet herself unclear how manage incontinence is going, she has not had any skin breakdown or rashes. This is her first UTI since hospitalization. Son does meal prep, patient is able to feed herself. Some of her limitations are functional and summer related to her blindness. - Palliative Care Discussion: Patient continues to express feelings of grief and loss, she feels very lonely, son is not much of a complicated sensation list. She does enjoy her shower days, and interaction with Stephanie. She is very much enjoyed meetings with the palliative care insurance sales representative, her friend is come around who reads to her, but she reports it is hard to follow TV and she tends to sleep with the TV on. She really does not want to change the situation, continues remain somewhat baffled while she cannot be by herself. Because she does admit she is "confused most of the time". She can speak in full sentences, just has word finding issues, and some short-term memory problems. Thiago continues to experience caregiver fatigue, Not made any further arrangements for respite this is mostly related to financial concerns. He finds things to christiana around with. If patient were to become more dependent, her incontinence became more unmanageable would have to revisit if this is going to meet her needs. Impression and Recommendations - Palliative Care Impression: This is an 83-year-old woman who had a hemorrhagic CVA early July, and mass was found consistent most likely with meningioma. She most likely had a TIA recently, and now presents with history of a UTI. She is improving though, her urine is cleared up, she has had no further symptoms so she was only symptomatic as far as some altered mental status and foul urine. She is currently in her home setting, which is where she continues to want to be, with support from her son. Goals remain to focus on comfort and quality of life issues and not to prolong long her life or suffering if any acute situation were to arise. Palliative care to continue to provide intermittent support and anticipatory guidance. Recommendations/Counseling Done: 1. Diabetes type 2. Patient's blood sugars are running low again from 97 to mostly in low 100s. Will decrease her Lantus to 18 units, I suspect again she has had some weight loss and she is eating smaller amounts. They are doing daily blood sugars and will continue monitoring. 2. UTI. Patient presents with symptoms resolved, she remains at high risk given her incontinence, and she is doing most of her own joe-care. Encouraged to push fluids, and reviewed signs and symptoms having to notify PCP or palliative care. 3. Cerebral infarction unspecified. No further symptoms of TIA since last visit. Patient continues to try and remain as independent as possible, and continues to feel like she is a burden on her son. They do have some help Wednesday with showering, otherwise patient is managing her transfers and toileting herself. Her son does do meal prep, but patient is not walking or doing any exercise. She continues to decline physical therapy. 4. Caregiver fatigue. Son really continues unwilling to hire any further respite care, he does find it helpful to have support for her his mom through the palliative care insurance sales representative and his other visiting restorationist ladies. We will continue to monitor if patient's care needs become more difficult or not able to be met in the home setting. 5. Advanced care planning. POLST is completed with DNA R and comfort measures, patient again does not want hospitalization or prolongation of her current situation if she were to have an acute illness her situation was to rise. Patient continues to struggle both physically and emotionally, her spiritual colin is important to her. She has very much enjoyed support with this through the palliative care insurance sales representative. Time Spent: 40 minutes with greater than 50% of this done in counseling regarding patient's feelings of grief and loss, expressed depressive symptoms, and intermittent anxiety. Palliative care continue provide support with team to chaplain HERLINDA, EMULSIFICATION OPERATOR has been out and will make himself available if plans change for meeting her care needs.
== END 2019-04-14 11:11 | disposition home or self-care (01) ==
LOC: PC 11:10
PROVIDERS: ATTEND Nurse Practitioner Adult Health
DX: Z51.5 Encounter for palliative care (principal); R41.0 Disorientation, unspecified; Z87.440 Personal history of urinary (tract) infections; R32 Unspecified urinary incontinence; E11.9 Type 2 diabetes mellitus without complications; Z79.4 Long term (current) use of insulin; Z66 Do not resuscitate; R41.3 Other amnesia; Z86.73 Personal history of transient ischemic attack (TIA), and cerebral infarction without residual deficits; F32.9 Major depressive disorder, single episode, unspecified; F41.9 Anxiety disorder, unspecified
CPT/HCPCS: 99349

== ENCOUNTER 2019-06-01 17:41 | Outpatient (CLI) | payer MEDICARE, OTHER ==
--- NOTE | 2019-06-01 19:21 | CONSULTATION NOTE ---
Palliative Care Follow Up - Referral Referring Provider: Dr. Osmar Peacock Time of Visit: [id number] Referral setting: Home Referral Reason: s/p stroke/menigioma/goals of care - Information Sources Records reviewed: Previous records reviewed History/Review of Systems obtained from: Patient, Family (son Ray) Exam limitations: Clinical condition (patient with severe STM deficits) - History of Present Illness Update Brief HPI Update: This is a 83-year-old woman who has a history of acute stroke with infarction to her left posterior occipital lobe in July 2018, and work-up found a new mass thought consistent with meningioma. They had no plans for further work-up or testing. Patient does present with word finding, short-term memory issues, but is able to converse but little insight into her deficits. A very sedentary and solitary life, Thiago and her son is present to make sure she is safe, but does not interact much other than provide meals. She is blind, does have the TV on, but finds it with her cognitive deficits difficult to follow. She is quite spiritual, and cannot figure out why she is still here. She reports "she has no life left in me". She denies any acute depression, just grief and loss over her current condition. Patient does not present with any acute symptoms, her ROS is mostly negative. She was last treated for UTI a couple months ago, and no further recurrence. Patient's past medical history includes hypertension, diabetes type 2, obesity. Social History - Living Situation Living arrangement: At home Living Situation: With family Support System: Patient has 4 children, her son Ray and her youngest is her primary caregiver. He does admit to feeling quite trapped. His brother who just retired, is a limp via, they do not know the location of the other son, and his sister is in [place] but does not feel she can take care of her nor has the ability to come out and provide further follow-up support. Does have nursing support 3 mornings a week, to help with bathing, skin care, and some light housework. He reports that point in time that she can no longer do her own joe-care or change her depends, she will have to be placed. She has limited resources, but is not at a place of spend down to be qualified for [place] PES. Medications/Allergies - Medications Home Medications: Ambulatory Orders Medication Instructions Recorded Confirmed Losartan [Cozaar] 50 mg PO BID 08/02/18 04/16/19 Atenolol 50 mg PO DAILY 08/03/18 04/16/19 Latanoprost 0.005% Ophth Drops 1 drops EACHEYE DAILY 08/03/18 04/16/19 [Xalatan Ophth Drops] Levothyroxine Sodium [Synthroid] 175 mcg PO DAILY 08/03/18 04/16/19 PARoxetine HCl [Paroxetine HCl] 40 mg PO DAILY 08/03/18 04/16/19 Sitagliptin Phosphate [Januvia] 50 mg PO BID 08/03/18 04/16/19 Atorvastatin [Lipitor] 80 mg PO QPM 10/28/18 04/16/19 Cholestyramine [Questran] 1 packet PO BID 10/28/18 04/16/19 Insulin Glargine [Lantus Solostar] 18 units SQ QPM 10/28/18 04/16/19 Potassium Chloride 10 meq PO DAILY 10/28/18 04/16/19 - Allergies Allergies/Adverse Reactions: Allergies Allergy/AdvReac Type Severity Reaction Status Date / Time cephradine Allergy Unknown Verified 08/04/18 07:50 gatifloxacin [From Tequin] Allergy Unknown Verified 08/22/18 15:47 sulfamethoxazole Allergy Unknown Verified 08/04/18 07:50 [From Septra] trimethoprim [From Septra] Allergy Unknown Verified 08/04/18 07:50 Review of Systems - Constitutional Constitutional: reports: Fatigue. denies: Fever, Chills - Eyes Eyes: reports: Vision loss (legally blind; can see shadows) - Ears, Nose & Throat Ears, Nose & Throat: reports: Hearing loss, Postnasal drainage (has mild nasal symptoms; no cough) - Cardiovascular Cardiovascular: reports: Decr. exercise tolerance - Respiratory Respiratory: denies: Cough, SOB at rest - Gastrointestinal Gastrointestinal: reports: Good appetite. denies: Constipation, Diarrhea, Reflux/heartburn - Genitourinary Genitourinary: reports: Incontinence - Musculoskeletal Musculoskeletal: reports: Stiffness, Limited range of motion, Muscle weakness, Assistive devices (can use walker with cuing and for short distances; sits in wheelchair most of day) - Integumentary Integumentary: reports: Dryness - Neurological Neurological: reports: General weakness, Memory problems, Other (aphasia/word finding) - Psychiatric Psychiatric: reports: Depression - Endocrine Endocrine: reports: Diabetes type 2 (bs good range 126-151) - Hematologic/Lymphatic Hematologic/Lymphatic: reports: Recurrent infections (treated in March) - All Other Systems All Other Systems: reports: Reviewed and negative, Other (limited ROS with patients STM deficits) Physical Exam - Vital Signs Temperature: 97.3 C Pulse Rate: 64 Respiratory Rate: 18 O2 Saturation: 98 (ra @ rest) Blood Pressure: 128/68 - Physical Exam General Appearance: positive: No acute distress, Alert Eyes Bilateral: positive: Other (keeps eyes closed most of conversation) ENT: positive: No signs of dehydration. negative: Purulent nasal drainage (clear) Neck: positive: No JVD, Trachea midline. negative: Lymphadenopathy (R), Lymphadenopathy (L) Cardiovascular: positive: Regular rate & rhythm Respiratory: positive: No respiratory distress, Breath sounds nml Abdomen: positive: Non-tender, Soft, Nml bowel sounds, Obese Skin: positive: Pallor, Dryness Extremities: positive: No pedal edema Neurologic/Psychiatric: positive: Mood/affect nml, Disoriented to time, Weakness, Flat affect Palliative Care - POLST Patient has POLST: Yes POLST Status: DNR, Comfort Measures Pain: No pain Tiredness/Fatigue: Moderate (4-6) Drowsiness/Sedation: Mild (1-3) (mostly bored) Nausea: None Depression: Moderate (4-6) Anxiety: Mild (1-3) Dyspnea: None Anorexia: None Sleep: Sleeps well Constipation: No Feelings of wellbeing/Perceived Quality of Life: Fair, No change Performance Status: Patient is mostly wheelchair-bound, she can ambulate a few steps and attend to her joe-care. Does have bathing assist 3 times a week, does need assistance with dressing and skin care. She does spend most the time watching TV, she does alternate to the bed to get a break. Perceives she has had some increasing weakness, and feeling less strong in her lower extremities. - Palliative Care Discussion: Patient remaining perplexed while she is still here. She "thinks her time is coming", but cannot really define other than some weakness changes in her condition. She does get quite frustrated with her cognitive status, there is nothing significant she is worrying about, she does not feel like she is having persistent sadness. She just thinks she should be gone. She is worried about her son Adin, and the burden that she is put on him. He is quite resentful to other family members as no one has offered any support or respite, and exhibits severe caregiver fatigue, but is not willing to hire or take any respite time. Impression and Recommendations - Palliative Care Impression: This is an 83-year-old woman who has had a hemorrhagic CVA early July, with a finding of a mass consistent most likely with meningioma. She has had a TIA, and recent UTI. She is a little bit more weak, but no other residual changes. She does have short-term memory issue, has slightly impulsive, aphasia and word finding. She is very much adamant she does not want any further prolongation of life or suffering if she were to have another event. Palliative care continue provide intermittent support, is being supported by palliative care soloist dancer regularly. Recommendations/Counseling Done: 1. Diabetes type 2. Patient currently on Lantus 18 units, her blood sugars are running a good range, they are continuing monitoring. 2. Cerebral infarction unspecified. She has had no further symptoms of TIA, has had some ongoing progression of weakness per her perception and this is confirmed with her son. Patient remains quite isolated, with few visitors and a little activity. She denies significant worry or depression. 3. Caregiver fatigue. Son continues unwilling to hire any further respite care, we did explore again what his plans were when she was no longer able to take care of her own joe-care or toileting. He feels like this is a threshold for which she would not be able to manage her at home and would want her placed. Encouraged to follow-up with senior center, and start and explore further the [place] application, as it does sound he has some misinformation regarding this. 4. Advanced care planning. POLST is completed with DNA R and comfort measures, patient does not want hospitalization or prolongation of her current situation if she were to have an acute illness or another stroke. Patient continues to struggle both physically and emotionally, her spiritual colin is important to her and she is supported by the palliative care soloist dancer. Patient unfortunately is quite stable at this point in time, though she does feel like her "time is coming", denies any fears or concerns regarding end of life. Time Spent: 30 minutes is greater than 50% of this done in counseling regarding current goals of care, home management, and anticipatory guidance.
== END 2019-06-01 17:42 | disposition home or self-care (01) ==
LOC: PC 17:41
PROVIDERS: ATTEND Nurse Practitioner Adult Health
DX: Z51.5 Encounter for palliative care (principal); E11.9 Type 2 diabetes mellitus without complications; R90.89 Other abnormal findings on diagnostic imaging of central nervous system; R53.1 Weakness; R41.89 Other symptoms and signs involving cognitive functions and awareness; H54.8 Legal blindness, as defined in USA; Z79.899 Other long term (current) drug therapy; Z79.4 Long term (current) use of insulin; Z74.8 Other problems related to care provider dependency; Z87.440 Personal history of urinary (tract) infections; Z86.73 Personal history of transient ischemic attack (TIA), and cerebral infarction without residual deficits; Z66 Do not resuscitate
CPT/HCPCS: 99348

== ENCOUNTER 2019-08-02 15:33 | Emergency (ER) | payer MEDICARE, OTHER ==
[2019-08-02 15:49] VITALS: BP 173/79
--- NOTE | 2019-08-02 16:04 | ED Physician Documentation ---
PD HPI ALTERED MENTAL STATUS - Stated complaint Stated Complaint: HALLUCINATIONS - Chief complaint Chief Complaint: Neuro - History obtained from History obtained from: Patient - History of Present Illness Timing - onset: Last night (84-year-old woman with history of CVA presents with visual hallucinations starting last night. Brought in by the supportive son with whom she lives. She is also confused a little bit. She had a stroke a year ago, she recovered pretty well from that with some mild residual speech deficit. She is also blind.) Review of Systems Ten Systems: 10 systems reviewed and negative Constitutional: denies: Fever, Chills Nose: denies: Rhinorrhea / runny nose, Congestion Cardiac: denies: Chest pain / pressure, Palpitations GI: denies: Abdominal Pain, Nausea, Vomiting : denies: Dysuria, Frequency, Hematuria PD PAST MEDICAL HISTORY - Past Medical History Cardiovascular: Hypertension, [place] Respiratory: None Neuro: TIA Endocrine/Autoimmune: Type 2 diabetes, HyPOthyroidism GI: Chronic diarrhea, Chronic constipation VENEER JOINTER: None : Incontinence HEENT: Macular degeneration Psych: None Musculoskeletal: Osteoarthritis Derm: None - Past Surgical History Past Surgical History: Yes General: Cholecystectomy, Appendectomy, Colonoscopy Ortho: Hip replacement, Other /VENEER JOINTER: section, Hysterectomy Cardiovascular: Coronary stent HEENT: Tonsil/Adenoidectomy - Present Medications Home Medications: Ambulatory Orders Medication Instructions Recorded Confirmed Losartan [Cozaar] 50 mg PO BID 08/02/18 04/16/19 Latanoprost 0.005% Ophth Drops 1 drops EACHEYE DAILY 08/03/18 04/16/19 [Xalatan Ophth Drops] Levothyroxine Sodium [Synthroid] 175 mcg PO DAILY 08/03/18 04/16/19 PARoxetine HCl [Paroxetine HCl] 40 mg PO DAILY 08/03/18 04/16/19 Sitagliptin Phosphate [Januvia] 50 mg PO BID 08/03/18 04/16/19 atenoloL [Atenolol] 50 mg PO DAILY 08/03/18 04/16/19 Atorvastatin [Lipitor] 80 mg PO QPM 10/28/18 04/16/19 Cholestyramine [Questran] 1 packet PO BID 10/28/18 04/16/19 Insulin Glargine [Lantus Solostar] 18 units SQ QPM 10/28/18 04/16/19 Potassium Chloride 10 meq PO DAILY 10/28/18 04/16/19 OLANZapine [Olanzapine] 2.5 mg PO QPM #30 tablet 08/02/19 - Allergies Allergies/Adverse Reactions: Allergies Allergy/AdvReac Type Severity Reaction Status Date / Time cephradine Allergy Unknown Verified 08/02/19 15:49 gatifloxacin [From Tequin] Allergy Unknown Verified 08/02/19 15:49 sulfamethoxazole Allergy Unknown Verified 08/02/19 15:49 [From Septra] trimethoprim [From Septra] Allergy Unknown Verified 08/02/19 15:49 - Social History Does the pt smoke?: No Smoking Status: Never smoker Does the pt drink ETOH?: No Does the pt have substance abuse?: No - Immunizations Immunizations are current?: Yes - POLST Patient has POLST: Yes POLST Status: DNR PD ED PE NORMAL - Vitals Vital signs reviewed: Yes - General General: Other (She is alert and oriented x3 but somewhat vague historian for recent events or why she is here.) - HEENT HEENT: EOMI, Other (midpoint pupils minimally reactive) - Neck Neck: Supple, no meningeal sign, No bony TTP - Cardiac Cardiac: RRR, No murmur - Respiratory Respiratory: No respiratory distress, Clear bilaterally - Abdomen Abdomen: Soft, Non tender - Back Back: No CVA TTP, No spinal TTP - Derm Derm: Normal color, Warm and dry - Neuro Neuro: Alert and oriented X 3, 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, No motor deficit, No sensory deficit, Normal speech Eye Opening: Spontaneous Motor: Obeys Commands Verbal: Confused GCS Score: 14 - Psych Psych: Normal mood, Normal affect Results - Vitals Vitals: Vital Signs - 24 hr 08/02/19 15:43 Heart Rate 62 Respiratory 16 Rate Blood Pressure 173/79 H O2 Saturation 96 Oxygen O2 Source Room air - Labs Labs: Laboratory Tests 08/02/19 08/02/19 08/02/19 16:25 16:25 16:51 WBC 9.0 RBC 4.87 Hgb 14.6 Hct 45.0 MCV 92.4 MCH 30.0 MCHC 32.4 RDW 13.9 Plt Count 143 MPV 8.3 Neut # (Auto) 5.5 Lymph # (Auto) 2.6 [place] # (Auto) 0.6 Eos # (Auto) 0.2 Baso # (Auto) 0.1 Absolute Nucleated RBC 0.00 Nucleated RBC % 0.0 Sodium 139 Potassium 3.8 Chloride 102 Carbon Dioxide 27 Anion Gap 10.0 BUN 20 Creatinine 0.8 Estimated GFR (MDRD) 69 L Glucose 201 H Calcium 9.5 Total Bilirubin 1.1 H AST 14 ALT 16 Alkaline Phosphatase 84 Total Protein 7.3 Albumin 4.5 Globulin 2.8 Albumin/Globulin Ratio 1.6 Lipase 28 Urine Color YELLOW Urine Clarity CLEAR Urine pH 5.5 Ur Specific [place] >=1.030 H Urine Protein NEGATIVE Urine Glucose (UA) 100 H Urine Ketones NEGATIVE Urine Occult Blood NEGATIVE Urine Nitrite NEGATIVE Urine Bilirubin NEGATIVE Urine Urobilinogen 0.2 (NORMAL) Ur Leukocyte Esterase NEGATIVE Ur Microscopic Review NOT INDICATED Urine Culture Comments NOT INDICATED Urine Opiates Screen NEGATIVE Ur Oxycodone Screen NEGATIVE Urine Methadone Screen NEGATIVE Ur Propoxyphene Screen NEGATIVE Ur Barbiturates Screen NEGATIVE Ur Tricyclics Screen NEGATIVE Ur Phencyclidine Scrn NEGATIVE Ur Amphetamine Screen NEGATIVE U Methamphetamines Scrn NEGATIVE U Benzodiazepines Scrn NEGATIVE Urine Cocaine Screen NEGATIVE U Cannabinoids Screen NEGATIVE Ethyl Alcohol < 5.0 - Rads (name of study) CT head Radiology: EMP read contemporaneously (3.5 cm right occipital mass without clear change since July of last year. 5 cm area of cortical and subcortical encephalomalacia malacia at the left temporal occipital junction from previous acute infarct in July 2018. Patchy and chronic small vessel ischemic change bilaterally and in the right paramedian anoop as before. No obvious acute change or bleed. Volume loss as before.) PD MEDICAL DECISION MAKING - ED course ED course: 84-year-old woman presents with acute hallucinations, she has a history of CVA and a stable brain tumor. She seems stable, little demented and a little confused but nothing too terrible. After results of diagnostic testing I discussed with the son at length options which included but were not limited to discharge with or without a low-dose antipsychotic, tele-psychiatric consultation, or pursuing hospitalization, he opted for the former. Departure - Departure Disposition: 01 Home, Self Care Clinical Impression: Do not intubate, cardiopulmonary resuscitation (CPR)-only code status, Visual hallucinations Altered mental status Qualifiers: Altered mental status type: unspecified Qualified Code(s): R41.82 - Altered mental status, unspecified Condition: Good Record reviewed to determine appropriate education?: Yes Instructions: ED Confusion, ED Dementia Caregiver Support Prescriptions: OLANZapine [Olanzapine] 2.5 mg PO QPM #30 tablet Comments: Follow-up tomorrow with the palliative nurse practitioner as scheduled. Return for new worsening symptoms. Discharge Date/Time: 08/02/19 17:50
[2019-08-02 16:30] LABS: BASOPHILS # (AUTO) 0.1 10^3/uL (0.0-0.1); BASOPHILS % (AUTO) 0.7 %; EOSINOPHILS # (AUTO) 0.2 10^3/uL (0.0-0.7); EOSINOPHILS % (AUTO) 2.1 %; HGB - HEMOGLOBIN 14.6 g/dL (12.0-16.0); LYMPHOCYTES # (AUTO) 2.6 10^3/uL (1.5-3.5); LYMPHOCYTES % (AUTO) 28.7 %; MEAN CORPUSCULAR HGB CONC 32.4 g/dL (32.0-36.0); MEAN CORPUSCULAR VOLUME 92.4 fL (81.0-99.0); MEAN PLATELET VOLUME 8.3 fL (7.9-10.8); MONOCYTES # (AUTO) 0.6 10^3/uL (0.0-1.0); NEUTROPHILS # (AUTO) 5.5 10^3/uL (1.5-6.6); NEUTROPHILS % (AUTO) 61.2 %; PLT - PLATELET COUNT 143 10^3/uL (130-450); RED BLOOD COUNT 4.87 10^6/uL (4.20-5.40); RED CELL DISTRIBUTION WIDTH 13.9 % (12.0-15.0)
--- NOTE | 2019-08-02 16:41 | CT Report ---
Reason: altered mental status Procedure Date: 08/02/2019 Accession Number: [id number] / [id number] Procedure: CT - HEAD WO CPT Code: Final Report FULL RESULT: EXAM: CT HEAD EXAM DATE: 08/02/2019 04:17 PM. CLINICAL HISTORY: Altered mental status. COMPARISON: HEAD W/O 08/02/2018 4:56 PM BRAIN WO 08/03/2018 2:41 PM. TECHNIQUE: Multiaxial CT images were obtained from the foramen magnum to the vertex. Reformats: Sagittal and coronal. IV contrast: None. In accordance with CT protocol optimization, one or more of the following dose reduction techniques were utilized for this exam: automated exposure control, adjustment of mA and/or KV based on patient size, or use of iterative reconstructive technique. FINDINGS: Parenchyma: There is an approximately 3.5 cm mildly hyperdense mass in the right occipital region which is indeterminate for intra-axial versus extra-axial location. There is a 5 cm area of cortical and subcortical encephalomalacia in the left temporal occipital region which has evolved from the acute infarct is seen in July 2018. There is extensive patchy hypodensity in the bilateral cerebral white matter consistent with chronic small vessel ischemic change, as before. Chronic lacunar infarct is again noted in the right anterior anoop. No evidence of intra-axial hemorrhage. Fuentes-white differentiation otherwise is intact. Extraaxial Spaces: The right occipital region as discussed above. There is mild generalized sulcal prominence, as before. No subdural or epidural collections identified. Ventricles: Normal in size and position. Sinuses and Orbits: Imaged paranasal sinuses, orbits, and mastoids show no significant abnormality. Prior bilateral cataract surgery and left scleral buckling procedure. Bones: No evidence of fracture or calvarial defect. Other: Marked calcification in the cavernous internal carotid arteries bilaterally. Moderate calcification in the proximal intracranial vertebral arteries bilaterally. IMPRESSION: 1. Approximately 3.5 cm right occipital mass which is mildly hyperdense toenails before. Although indeterminate, the mass may be extra-axial rather than intra-axial and may represent a meningioma. Contrast-enhanced MRI brain or CT head could be used to further assess. Findings shows no definite change since July 2018. 2. Approximately 5 cm area of cortical and subcortical encephalomalacia at the left temporal occipital junction which has evolved since the acute infarct in July 2018. 3. Extensive patchy chronic small vessel ischemic change in the bilateral cerebral white matter in the right paramedian anoop, as before. 4. No intra-axial hemorrhage or current CT evidence of acute CVA. 5. Mild diffuse cerebral and cerebellar volume loss, as before. RADIA
[2019-08-02 16:43] LABS: ALBUMIN 4.5 g/dL (3.2-5.5); ALBUMIN/GLOBULIN RATIO 1.6 (1.0-2.2); ALKALINE PHOSPHATASE 84 IU/L (42-121); ALT ALANINE AMINOTRANSFERASE 16 IU/L (10-60); AST ASPARTATE AMINOTRANSFERASE 14 IU/L (10-42); BILIRUBIN,TOTAL 1.1 mg/dL (0.2-1.0); BUN - BLOOD UREA NITROGEN 20 mg/dL (6-20); CALCIUM 9.5 mg/dL (8.5-10.3); CARBON DIOXIDE - CO2 27 mmol/L (21-32); CHLORIDE 102 mmol/L (101-111); CREATININE 0.8 mg/dL (0.4-1.0); GFR - MDRD 69 (>89); GLUCOSE 201 mg/dL (70-100); LIPASE 28 U/L (22-51); SODIUM 139 mmol/L (135-145); TOTAL PROTEIN 7.3 g/dL (6.7-8.2)
[2019-08-02 16:56] LABS: MUDS CUTOFF CONCENTRATIONS CUTOFF CONC BELOW:
[2019-08-02 16:58] LABS: BILIRUBIN,URINE NEGATIVE (NEGATIVE); GLUCOSE, URINE (UA) 100 mg/dL (NEGATIVE); KETONES,URINE (UA) NEGATIVE (NEGATIVE); LEUKOCYTE ESTERASE, URINE NEGATIVE (NEGATIVE); NITRITE,URINE NEGATIVE (NEGATIVE); OCCULT BLOOD,URINE NEGATIVE (NEGATIVE); PH,URINE 5.5 PH (5.0-7.5); PROTEIN,URINE NEGATIVE (NEGATIVE); UROBILINOGEN,URINE 0.2 (NORMAL) E.U./dL (NORMAL)
[2019-08-02 17:03] LABS: CLARITY,URINE CLEAR (CLEAR)
[2019-08-02 17:17] LABS: AMPHETAMINE SCREEN,URINE NEGATIVE (NEGATIVE); BENZODIAZEPINES SCREEN, URINE NEGATIVE (NEGATIVE); COCAINE SCREEN URINE NEGATIVE (NEGATIVE); METHADONE SCREEN, URINE NEGATIVE (NEGATIVE); METHAMPHETAMINES SCREEN, URINE NEGATIVE (NEGATIVE); OPIATE SCREEN, URINE NEGATIVE (NEGATIVE); OXYCODONE SCREEN, URINE NEGATIVE (NEGATIVE); PROPOXYPHENE SCREEN, URINE NEGATIVE (NEGATIVE); TRICYCLIC ANTIDEPRESSANT,URINE NEGATIVE (NEGATIVE)
== END 2019-08-02 17:50 | disposition home or self-care (01) ==
LOC: ED 15:33
DX: R44.1 Visual hallucinations (principal); R41.82 Altered mental status, unspecified; F03.90 Unspecified dementia, unspecified severity, without behavioral disturbance, psychotic disturbance, mood disturbance, and anxiety; D49.6 Neoplasm of unspecified behavior of brain; I69.328 Other speech and language deficits following cerebral infarction; I10 Essential (primary) hypertension; E11.9 Type 2 diabetes mellitus without complications; Z79.4 Long term (current) use of insulin; H54.7 Unspecified visual loss
CPT/HCPCS: 36415; 51701; 70450; 80053; 80306; 80320; 81001; 81003; 83690; 84443; 85025; 87086; 99283; 99284

== ENCOUNTER 2019-08-03 04:36 | Outpatient (CLI) | payer MEDICARE, OTHER | END 2019-08-03 04:37 | disposition critical access hospital (66) | LOC: EMS 04:36 | PROVIDERS: ATTEND Surgery | DX: R53.1 Weakness (principal); R41.0 Disorientation, unspecified | CPT/HCPCS: A0425; A0429 ==

== ENCOUNTER 2019-08-03 04:55 | Emergency (ER) | payer MEDICARE, OTHER ==
[2019-08-03] MEDS ORDERED: SODIUM CHLORIDE 0.9% 1,000 ML IV ONE (06:07)
--- NOTE | 2019-08-03 06:08 | ED Physician Documentation ---
PD HPI ALTERED MENTAL STATUS - Stated complaint Stated Complaint: WEAKNESS - Chief complaint Chief Complaint: Neuro - History obtained from History obtained from: Patient, EMS - History of Present Illness Timing - onset: Today Timing - duration: Minutes Timing - details: Abrupt onset, Still present Quality / character: Confused Associated symptoms: General weakness. No: Fever, Headache, Stiff neck, Dyspnea, Cough, NVD, Urinary sx, Focal weakness, Seizure activity, Syncope Contributing factors: No: Anticoagulated Basline status: Ambulatory, Confused Similar symptoms before: Diagnosis (transient confusion) Recently seen: Emergency Dept - Additional information Additional information: 84 y/o legally blind female was found on the ground by her son this morning confused. She was hallucinating yesterday and was evaluated in the ED without findings and she was improved at discharge but remains confused. She has an appointment to see Rhina Mejia this morning. She has about 3 days of confusion/hallucinating and this is a change from baseline. The son dose acknowledge that she has some memory short comings over the past year but not this bad. She has a prior history of CVA. Review of Systems Constitutional: denies: Fever, Chills Eyes: denies: Decreased vision Ears: denies: Ear pain Nose: denies: Rhinorrhea / runny nose, Congestion Throat: denies: Sore throat Cardiac: denies: Chest pain / pressure, Palpitations Respiratory: denies: Dyspnea, Cough GI: denies: Abdominal Pain, Nausea, Vomiting : denies: Dysuria Skin: denies: Rash Musculoskeletal: denies: Neck pain, Back pain Neurologic: reports: Generalized weakness. denies: Focal weakness, Numbness PD PAST MEDICAL HISTORY - Past Medical History Past Medical History: Yes Cardiovascular: Hypertension, [place] Respiratory: None Neuro: TIA Endocrine/Autoimmune: Type 2 diabetes, HyPOthyroidism GI: Chronic diarrhea, Chronic constipation CRM MARKETING ANALYST: None : Incontinence HEENT: Macular degeneration Psych: None Musculoskeletal: Osteoarthritis Derm: None - Past Surgical History Past Surgical History: Yes General: Cholecystectomy, Appendectomy, Colonoscopy Ortho: Hip replacement, Other /CRM MARKETING ANALYST: section, Hysterectomy Cardiovascular: Coronary stent HEENT: Tonsil/Adenoidectomy - Present Medications Home Medications: Ambulatory Orders Medication Instructions Recorded Confirmed Losartan [Cozaar] 50 mg PO BID 08/02/18 08/03/19 Latanoprost 0.005% Ophth Drops 1 drops EACHEYE DAILY 08/03/18 08/03/19 [Xalatan Ophth Drops] Levothyroxine Sodium [Synthroid] 200 mcg PO DAILY 08/03/18 08/03/19 PARoxetine HCl [Paroxetine HCl] 40 mg PO DAILY 08/03/18 08/03/19 Sitagliptin Phosphate [Januvia] 50 mg PO BID 08/03/18 08/03/19 atenoloL [Atenolol] 50 mg PO DAILY 08/03/18 08/03/19 Atorvastatin [Lipitor] 80 mg PO QPM 10/28/18 08/03/19 Cholestyramine [Questran] 1 packet PO BID 10/28/18 08/03/19 Insulin Glargine [Lantus Solostar] 18 units SQ QPM 10/28/18 08/03/19 Potassium Chloride 10 meq PO DAILY 10/28/18 08/03/19 OLANZapine [Olanzapine] 2.5 mg PO QPM #30 tablet 08/02/19 08/03/19 - Allergies Allergies/Adverse Reactions: Allergies Allergy/AdvReac Type Severity Reaction Status Date / Time cephradine Allergy Unknown Verified 08/03/19 05:05 gatifloxacin [From Tequin] Allergy Unknown Verified 08/03/19 05:05 sulfamethoxazole Allergy Unknown Verified 08/03/19 05:05 [From Septra] trimethoprim [From Septra] Allergy Unknown Verified 08/03/19 05:05 - Social History Does the pt smoke?: No Smoking Status: Never smoker Does the pt drink ETOH?: No Does the pt have substance abuse?: No - Immunizations Immunizations are current?: Yes - POLST Patient has POLST: Yes POLST Status: DNR PD ED PE NORMAL - Vitals Vital signs reviewed: Yes (hypertensive ) - General General: No acute distress, Well developed/nourished - HEENT HEENT: Atraumatic - Neck Neck: Supple, no meningeal sign, No bony TTP - Cardiac Cardiac: RRR, No murmur - Respiratory Respiratory: No respiratory distress, Clear bilaterally - Abdomen Abdomen: Soft, Non tender - Back Back: No CVA TTP, No spinal TTP - Derm Derm: Normal color, Warm and dry, No rash - Extremities Extremities: No deformity, Other (mixedema of the lower ext. ) - Neuro Neuro: No motor deficit, No sensory deficit, Normal speech Eye Opening: To Voice Motor: Obeys Commands Verbal: Oriented GCS Score: 14 - Psych Psych: Normal mood, Normal affect Results - Vitals Vitals: Oxygen O2 Source Room air - Labs Labs: Laboratory Tests 08/03/19 08/03/19 08/03/19 06:20 06:20 06:20 WBC 15.0 H RBC 4.89 Hgb 14.7 Hct 44.7 MCV 91.4 MCH 30.1 MCHC 32.9 RDW 13.8 Plt Count 149 MPV 8.3 Neut # (Auto) 12.8 H Lymph # (Auto) 1.2 L [place] # (Auto) 0.9 Eos # (Auto) 0.0 Baso # (Auto) 0.0 Absolute Nucleated RBC 0.00 Nucleated RBC % 0.0 Sodium Potassium Chloride Carbon Dioxide Anion Gap BUN Creatinine Estimated GFR (MDRD) Glucose Lactic Acid 1.6 Calcium Total Bilirubin AST ALT Alkaline Phosphatase Total Protein Albumin Globulin Albumin/Globulin Ratio Lipase TSH 56.01 H 08/03/19 06:30 WBC RBC Hgb Hct MCV MCH MCHC RDW Plt Count MPV Neut # (Auto) Lymph # (Auto) [place] # (Auto) Eos # (Auto) Baso # (Auto) Absolute Nucleated RBC Nucleated RBC % Sodium 142 Potassium 4.8 Chloride 107 Carbon Dioxide 29 Anion Gap 6.0 BUN 18 Creatinine 0.9 Estimated GFR (MDRD) 60 L Glucose 196 H Lactic Acid Calcium 9.4 Total Bilirubin 1.1 H AST 18 ALT 16 Alkaline Phosphatase 73 Total Protein 6.6 L Albumin 4.1 Globulin 2.5 Albumin/Globulin Ratio 1.6 Lipase 27 TSH Procedures - IVC sono (time) 0600 Bedside IVC sono: IVC measures (cm) (0.93), IVC collapsed c insp (cm) (complete), Dehydration (est 1-2 liter deficit) PD MEDICAL DECISION MAKING - ED course Complexity details: reviewed old records, reviewed results, re-evaluated patient, considered differential, d/w patient, d/w family ED course: 84 y/o female with confusion and dehydration is hydrated. Review of her labs indicates her TSH is elevated over the past year and was markedly elevated yesterday. Her laboratory values were repeated and at shift change her care is turned over to Dr. Kenton Ozuna. Her TSH is markedly elevated and a plan is made to check her physical dose at home prior to changing the dosing. She is improved with hydration. Departure - Departure Disposition: 01 Home, Self Care Clinical Impression: Dehydration Hypothyroidism Qualifiers: Hypothyroidism type: unspecified Qualified Code(s): E03.9 - Hypothyroidism, unspecified Condition: Good Instructions: ED Hypothyroidism Follow-Up: Rhina Clancy ARNP [Provider Admit Priv/Credential] - Osmar Peacock MD [Primary Care Provider] - Comments: Follow up with Rhina Clancy for further care today. she needs her thyroid medications adjusted. Discharge Date/Time: 08/03/19 10:18
[2019-08-03 06:29] LABS: BASOPHILS % (AUTO) 0.3 %; EOSINOPHILS % (AUTO) 0.2 %; HGB - HEMOGLOBIN 14.7 g/dL (12.0-16.0); LYMPHOCYTES # (AUTO) 1.2 10^3/uL (1.5-3.5); LYMPHOCYTES % (AUTO) 8.1 %; MEAN CORPUSCULAR HEMOGLOBIN 30.1 pg (27.0-31.0); MEAN CORPUSCULAR HGB CONC 32.9 g/dL (32.0-36.0); MEAN CORPUSCULAR VOLUME 91.4 fL (81.0-99.0); MEAN PLATELET VOLUME 8.3 fL (7.9-10.8); MONOCYTES # (AUTO) 0.9 10^3/uL (0.0-1.0); MONOCYTES % (AUTO) 5.9 %; NEUTROPHILS # (AUTO) 12.8 10^3/uL (1.5-6.6); PLT - PLATELET COUNT 149 10^3/uL (130-450); RED BLOOD COUNT 4.89 10^6/uL (4.20-5.40); RED CELL DISTRIBUTION WIDTH 13.8 % (12.0-15.0)
[2019-08-03 06:51] LABS: ALBUMIN 4.1 g/dL (3.2-5.5); ALBUMIN/GLOBULIN RATIO 1.6 (1.0-2.2); BILIRUBIN,TOTAL 1.1 mg/dL (0.2-1.0); CALCIUM 9.4 mg/dL (8.5-10.3); CREATININE 0.9 mg/dL (0.4-1.0); TOTAL PROTEIN 6.6 g/dL (6.7-8.2)
--- NOTE | 2019-08-03 09:48 | ED Physician Documentation ---
ED Addendum - Addendum Addendum: 08/03/19 09:49 84-year-old female in the emergency department with weakness, ongoing for the past several months. She has had altered mental status the past few days. She seems better after IV fluids. Appears more at her baseline. She is significantly hypothyroid. I spoke to HERLINDA Tyler, who will stop by the home today and ensure that the Synthroid she is taking is the correct dosage before we adjust her medications. Patient feels like she is at her baseline currently. Son is comfortable taking her home. Patient and family counseled regarding signs and symptoms for which I believe and urgent re-evaluation would be necessary. Patient with good understanding of and agreement to plan and is comfortable going home at this time This document was made in part using voice recognition software. While efforts are made to proofread this document, sound alike and grammatical errors may occur. Departure - Departure Disposition: 01 Home, Self Care Clinical Impression: Hypothyroidism Qualifiers: Hypothyroidism type: unspecified Qualified Code(s): E03.9 - Hypothyroidism, unspecified Condition: Good Instructions: ED Hypothyroidism Follow-Up: Osmar Peacock MD [Primary Care Provider] - Rhina Clancy ARNP [Provider Admit Priv/Credential] - Comments: Follow up with Rhina Clancy for further care today. she needs her thyroid medications adjusted.
[2019-08-03 10:18] VITALS: BP 132/58
== END 2019-08-03 10:18 | disposition home or self-care (01) ==
LOC: EDUNIT# → ED 04:55
DX: E86.0 Dehydration (principal); E03.9 Hypothyroidism, unspecified; I10 Essential (primary) hypertension; E11.9 Type 2 diabetes mellitus without complications; I25.2 Old myocardial infarction; H35.30 Unspecified macular degeneration; H54.8 Legal blindness, as defined in USA; Z95.5 Presence of coronary angioplasty implant and graft; Z79.4 Long term (current) use of insulin; Z79.899 Other long term (current) drug therapy; Z66 Do not resuscitate; Z51.5 Encounter for palliative care; Z86.73 Personal history of transient ischemic attack (TIA), and cerebral infarction without residual deficits
CPT/HCPCS: 36415; 80053; 83605; 83690; 84443; 85025; 96360; 99284

== ENCOUNTER 2019-08-03 15:51 | Outpatient (CLI) | payer MEDICARE, OTHER ==
--- NOTE | 2019-08-03 17:42 | CONSULTATION NOTE ---
Palliative Care Follow Up - Referral Referring Provider: Dr. Osmar Peacock Time of Visit: 06-06 Referral setting: Home Referral Reason: AMS/Hallucinations/Weakness - Information Sources Records reviewed: Previous records reviewed History/Review of Systems obtained from: Family (son Ray), Caregiver (Swati) Exam limitations: Clinical condition - History of Present Illness Update Brief HPI Update: This is an 84-year-old woman who has a history of acute stroke with infarction to her left posterior occipital lobe, in July 2018. She had a work-up, at that point in time and found a mass consistent with a meningioma. She had a stay at [facility], and discharged home to her son's care. She lives a very sede ntary and solitary life, Thiago is present who is her son, keep her safe, but they have very little verbal interaction. Patient does have significant cognitive deficits, she is blind, she presents with poor insight into her current situation, she can speak but does have word finding, but is very pleasant and namita to interact with. Patient had some progressive increased confusion, and hallucinations. Per the palliative care deck engineer, she had been seeing her family members, and visions prior to this, but nothing this acute. This had been somewhat escalating over a period of 2 to 3 days, to the point she was seeing bugs, thought there was a gentleman in the shower with her, with seeing babies crawling on the floors and having distressing hallucinations. Patient has had history of UTIs, Thiago and her son, and caregiver Stephanie brought her into the ED. They did do a CT scan of the brain, actually did not show any increased in size at the 3.5 cm mass, nor any acute signs or symptoms of stroke at this point. In her work-up, she did not have any elevated white count on this visit, her UA was negative, though they were not able to find any underlying etiology, they were given a set of options, and son decided to bring her home with low-dose antipsychotic. Patient continued to weaken, they did have difficulty getting her in bed, son did try to stay up with her, she kept trying to get out of bed with the hallucinations, they were not able to pick up and delivery driver olanzepine prior to getting home. He did get up in the early a.m., and patient had made her way out of bed, was on the floor. She does recall being on the floor, but not the circumstances. Patient is quite large, is unable to get her up from the floor, that he did call 911 for assistance. On arrival they did recommend taking her back in to the ED, where she did receive some hydration, and follow-up labs did have an elevated TSH of 56.01. Her white count at this point time was 15,000, though still no acute signs or symptoms of infection. She was much weaker though, I did take 3 staff to get her in the van, they were able to get her out and into her bed. I did show up within about an hour. Their caregiver Stephanie and I did transfer her into bed, she was incontinent, and needed to change her in bed. Son with escalating anxiety, as he has not been providing her personal care, did not see that is something he could do as far as changing her depends, or cleaning her up. Patient actually been able to do this independently as far as getting to the bathroom, and changing her depends on a regular basis in the morning. Swati the caregiver came 3 days a week and bathed her in the a.m. We did come up with a short-term plan, for Stephanie to come provide support for changing her in the bed every 2-3 hours, unfortunately the phone systems were down, unable to make contact with [facility] or [facility], son feeling like he is unable to cope with her increased care needs and are looking at arranging for a respite stay. Patient does have some financial savings, but not enough to support her in another setting, and only short-term in a respite stay. Verified patient's current thyroid dosing, up 175 mcg pill, was correct. Social History - Living Situation Living arrangement: At home Living Situation: With family Support System: Patient's son Thiago, has been the primary caregiver for ongoing a year. He gets quite frustrated given has no other support, and feels quite stuck in his life. He is quite adamant he is unable to do personal care, he does provide her meals, oversees her medications, and supervision. His brother is not been able to assist either with caregiving or finances, and [place] and not available [place]. Patient is aware and feels like badly of the burden she puts on her son. Medications/Allergies - Medications Home Medications: Ambulatory Orders Medication Instructions Recorded Confirmed Losartan [Cozaar] 50 mg PO BID 08/02/18 08/03/19 Latanoprost 0.005% Ophth Drops 1 drops EACHEYE DAILY 08/03/18 08/03/19 [Xalatan Ophth Drops] Levothyroxine Sodium [Synthroid] 200 mcg PO DAILY 08/03/18 08/03/19 PARoxetine HCl [Paroxetine HCl] 40 mg PO DAILY 08/03/18 08/03/19 Sitagliptin Phosphate [Januvia] 50 mg PO BID 08/03/18 08/03/19 atenoloL [Atenolol] 50 mg PO DAILY 08/03/18 08/03/19 Atorvastatin [Lipitor] 80 mg PO QPM 10/28/18 08/03/19 Cholestyramine [Questran] 1 packet PO BID 10/28/18 08/03/19 Insulin Glargine [Lantus Solostar] 18 units SQ QPM 10/28/18 08/03/19 Potassium Chloride 10 meq PO DAILY 10/28/18 08/03/19 OLANZapine [Olanzapine] 2.5 mg PO QPM #30 tablet 08/02/19 08/03/19 - Allergies Allergies/Adverse Reactions: Allergies Allergy/AdvReac Type Severity Reaction Status Date / Time cephradine Allergy Unknown Verified 08/03/19 05:05 gatifloxacin [From Tequin] Allergy Unknown Verified 08/03/19 05:05 sulfamethoxazole Allergy Unknown Verified 08/03/19 05:05 [From Septra] trimethoprim [From Septra] Allergy Unknown Verified 08/03/19 05:05 Review of Systems - Constitutional Constitutional: reports: Fatigue, Weight loss. denies: Fever, Chills - Eyes Eyes: reports: Vision loss - Respiratory Respiratory: reports: SOB with exertion. denies: SOB at rest - Gastrointestinal Gastrointestinal: reports: Early satiety. denies: Constipation, Diarrhea - Genitourinary Genitourinary: reports: Incontinence (can be avoided with timed toileting; currently incontinent) - Musculoskeletal Musculoskeletal: reports: Stiffness, Muscle weakness, Assistive devices (was able to transfer with contact assist to bed; able to weight bear) - Integumentary Integumentary: reports: Dryness - Neurological Neurological: reports: General weakness, Memory problems - Psychiatric Psychiatric: reports: Depression, Anxiety, Hallucinations - Endocrine Endocrine: reports: Hypothyroidism (TSH was 56.01 on repeat) - All Other Systems All Other Systems: reports: Other (limited ROS; patient with poor recall and fatigued with ED visits) Physical Exam - Vital Signs Temperature: 96.5 C Pulse Rate: 76 Respiratory Rate: 18 O2 Saturation: 95 (ra @ rest) Blood Pressure: 132/72 - Physical Exam General Appearance: positive: Mild distress, Other (fairly exhausted) Eyes Bilateral: positive: Other (keeps eyes closed) ENT: positive: No signs of dehydration Neck: positive: No JVD, Trachea midline Cardiovascular: positive: Regular rate & rhythm Respiratory: positive: No respiratory distress, Diminished in bases, Rales (fine crackles LLL) Abdomen: positive: Non-tender, Soft, Nml bowel sounds, Obese Skin: positive: Dryness Extremities: positive: No pedal edema Neurologic/Psychiatric: positive: Mood/affect nml, Disoriented to time, Weakness, Flat affect Palliative Care - POLST Patient has POLST: Yes POLST Status: DNR, Comfort Measures Pain: No pain Tiredness/Fatigue: Moderate (4-6) Drowsiness/Sedation: Moderate (4-6) Nausea: None Feelings of wellbeing/Perceived Quality of Life: Fair, Acceptable, No change Performance Status: Patient's previous level of function included being able to ambulate independently from her wheelchair into the bathroom to toilet and back. She did receive bathing services and assistance with dressing 3 times a week. Her son does provide meals, though he does mostly move her around the apartment in the wheelchair. She does self feed, she is able to carry on a conversation, is quite social and engaged at baseline. Today she is a standing transfer, with contact assist from bed to wheelchair wheelchair to bed, she was able assist with bed mobility to be able to change her and clean her up from her incontinence. Her baseline is usually just incontinence at night. - Palliative Care Discussion: Patient does not recall the last couple visits to the ED, she does recall some components of it but not the events leading up to it, she does remember she is fallen. Patient does recall her hallucinations and able to describe them. She denies any active time of visit, though she is quite exhausted. Did speak to the son at length, I had asked him to follow-up with [facility] given his expression of concern he would not be able to provide personal care. He is quite distressed and feeling put upon, as he does not have any resources to draw from. He is willing for me to reach out for respite stay, though unable to contact anyone during my visit. They did come up with a short-term care plan. Did discuss even if patient does recover to the point not needing respite stay, he wanted to give it at least till tomorrow, plus unable to range anything at this point. Has agreed to let Adin the medical palliative care social science research assistant come back and work with a application for [facility]. Results - Lab Results Lab results reviewed: Yes Impression and Recommendations - Palliative Care Impression: This is an 84-year-old woman with 2 acute stays the ED, first for altered mental status and hallucinations and second for follow-up on ground-level fall. Patient does present with increased weakness, she has been having some functiona l decline, though cognitively has stabilized. Goals have been to minimize interventions and focus on comfort, the son was quite concerned with the change in status and did bring her into the ED. This was more attributed to the fact she was very difficult to manage, as she was confused and trying to get up and out of bed. Patient did have scan, meningioma which is assumed, has not worsened. Palliative care providing support regarding an acute symptom management, with goal to transition to alternative setting when available Recommendations/Counseling Done: 1. Hallucination. Patient does not present with hallucinations at this point in exam, though she is quite fatigued. Patient presented acutely with altered mental status, review with the Palliative care deck engineer, patient had been seeing relatives and having visions for several weeks. Counseling provided to son regarding use of olanzapine, instructed given at bedtime. 2. Generalized weakness. Patient does present with acute decline in functional status, she has some improvement but is still not independent currently. Patient at this point is incontinent, and unable to manage her own toileting. The son is quite stressed regarding this, has does not feel like he can take this on, Stephanie the regular caregiver, as agreed to step in until longer-term plan can come into place. 3. Hyperthyroidism will increase patient thyroid dose confirmed, pills confirmed.Will increase levothyroxine to 200 mcg, and recheck in 3 to 4 weeks. Unable to contact Dr. Peacock primary care provider, given phone system down. Will notify him with increasing he can adjust accordingly if not in agreement. 4. Advanced care planning. Patient does have POLST with focus on comfort. Son was overwhelmed with patient's increasing care needs with hallucinations, we did discuss so this was a "practice" run given he is going to need a longer term plan. He did agree to see the medical palliative care social science research assistant Adin again in complete a [facility] P[facility] application. He has had poor understanding up to this point, and is distressed at the thought of "recovery" for [facility]. Time Spent: 60 minutes with greater than 50% of this done in counseling regarding coordination of care continuum of care goals of care and managing for patient's acute cognitive and functional decline. ADDENDUM: 08/04. Call the patient's son in the morning, patient has improved, she was able to ambulate to the bathroom with his supervision today. He is feeling like currently they can manage, did agree to Adin the palliative care social science research assistant to come given this will happen again, whether she acutely declines or slowly declines will need a plan in place. Call later in the evening, did find [facility] had a resp[facility] stay, $250 a day, minimum 3 days maximum 30. They would need orders, signed by Dr. Peacock. In follow-up with [facility] at the [facility], they also could accept her, but would be a $4000 fee and minimum of 2 weeks day. These options were presented to son, he will go explore [facility] as a possible placement in the future if needs an acute stay again, as well as possible need for for long-term placement. When spoke with [facility], they did feel I could have a nurse come within a day, to do evaluation needed for excepting patient to facility
== END 2019-08-03 15:52 | disposition home or self-care (01) ==
LOC: PC 15:51
PROVIDERS: ATTEND Nurse Practitioner Adult Health
DX: Z51.5 Encounter for palliative care (principal); R44.1 Visual hallucinations; R53.1 Weakness; R41.89 Other symptoms and signs involving cognitive functions and awareness; R32 Unspecified urinary incontinence; E05.90 Thyrotoxicosis, unspecified without thyrotoxic crisis or storm; I69.319 Unspecified symptoms and signs involving cognitive functions following cerebral infarction; I69.328 Other speech and language deficits following cerebral infarction; Z79.899 Other long term (current) drug therapy; Z66 Do not resuscitate; Z91.81 History of falling
CPT/HCPCS: 99350

== ENCOUNTER 2019-09-05 08:00 | Outpatient (CLI) | payer MEDICARE, OTHER ==
[2019-09-05 20:34] LABS: FREE T4 (FREE THYROXINE) 0.57 ng/dL (0.58-1.64)
== END 2019-09-05 23:59 | disposition home or self-care (01) ==
LOC: LAB.WCP 08:00
PROVIDERS: ATTEND Family Medicine
DX: E03.9 Hypothyroidism, unspecified (principal)
CPT/HCPCS: 36415; 84439; 84443

== ENCOUNTER 2019-09-28 11:00 | Outpatient (CLI) | payer MEDICARE, OTHER ==
--- NOTE | 2019-09-28 17:14 | CONSULTATION NOTE ---
Palliative Care Follow Up - Referral Referring Provider: Dr. 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 At that point in time she had a mass consistent with a meningioma. Patient's deficits have been cognitive , short-term memory issue, word finding, and she has had ongoing functional decline as she was fairly sedentary prior to her stroke. She is mostly wheelchair-bound, and dependent for most of her ADLs, though does do some toileting.She recently , had a CT scan as a result of increased confusion and hallucinations and an ED visit. This did not show any increase in size of the 3.5 cm mass, nor further acute signs or symptoms of recurrent stroke at that time. But they did find was a fairly elevated TSH of 56.01, and has since improved. They have been increasing her levothyroxine, though discovered about 2 weeks ago, son was giving it with her question dosing, so most likely was not being absorbed. Patient did roll out of bed this weekend, and needed EMS lift assist. She is quite upset regarding this, and has long been moaned her poor quality of life, and wanting to just go to [facility]. She has a strong belief and colin, and has been frustrated that "the lord hasn't taken her yet". I am not quite sure what triggered, but son shares with me patient has not wanted to take her medications, to prolong her suffering. He is offered them up and left them on the table, she is taking them once, but otherwise his not been taking them. She has been getting her insulin, her thyroid though he has been crushing it, and her question as he does not want her to have diarrhea. He feels that it is her choice, and has made it available. In exploring this with patient, she is unable to really express other than she does not want up prolong things, we did discuss in the context of her me dications there for chronic diseases, is not going to hasten her in a short period we discussed its her blood pressure meds, she would want to have another stroke, she reports no she would not. We did discuss that is most likely what is going to happen, though certainly not guaranteed. I also expressed my concern both to the son and the patient given her precarious functional status, if she were to worsen son would not be able to take care of her in the home setting. She is not able to really tell me her understanding of consequences regarding this decision, though it certainly is consistent with her values of focusing on comfort only, not wanting to prolong her suffering, and feels ready to go at any time. Social History - Living Situation Living arrangement: At home Living Situation: With family (Patient is cared for by her son Adin, who is lived with her this last year to be the primary caregiver. This is been very difficult, he does have a paid caregiver who comes [place] and assist with bed changes and personal care every other day. He does provide supervision, medication management but does not feel he can do personal care. Patient can do limited toileting, though appears more difficult today given her weakness. He is still not follow through with the [facility] for the application, this was reviewed of the urgency regarding this.) Medications/Allergies - Medications Home Medications: Ambulatory Orders Medication Instructions Recorded Confirmed Losartan [Cozaar] 50 mg PO BID 08/02/18 09/28/19 Latanoprost 0.005% Ophth Drops 1 drops EACHEYE DAILY 08/03/18 09/28/19 [Xalatan Ophth Drops] Levothyroxine Sodium [Synthroid] 225 mcg PO DAILY 08/03/18 09/28/19 PARoxetine HCl [Paroxetine HCl] 40 mg PO DAILY 08/03/18 09/28/19 Sitagliptin Phosphate [Januvia] 50 mg PO BID 08/03/18 09/28/19 atenoloL [Atenolol] 50 mg PO DAILY 08/03/18 09/28/19 Atorvastatin [Lipitor] 80 mg PO QPM 10/28/18 09/28/19 Cholestyramine [Questran] 1 packet PO BID 10/28/18 09/28/19 Insulin Glargine [Lantus Solostar] 18 units SQ QPM 10/28/18 09/28/19 Potassium Chloride 10 meq PO DAILY 10/28/18 09/28/19 - Allergies Allergies/Adverse Reactions: Allergies Allergy/AdvReac Type Severity Reaction Status Date / Time cephradine Allergy Unknown Verified 08/03/19 05:05 gatifloxacin [From Tequin] Allergy Unknown Verified 08/03/19 05:05 sulfamethoxazole Allergy Unknown Verified 08/03/19 05:05 [From Septra] trimethoprim [From Septra] Allergy Unknown Verified 08/03/19 05:05 Review of Systems - Constitutional Constitutional: reports: Fatigue (worsening), Other (unknown; appears thinner but Stephanie cg reports doesn't think so ; will try and weigh). denies: Fever, Chills - Eyes Eyes: reports: Vision loss - Ears, Nose & Throat Ears, Nose & Throat: reports: Hearing loss - Cardiovascular Cardiovascular: reports: Edema (LE). denies: Palpitations, Chest pain - Respiratory Respiratory: denies: SOB at rest - Gastrointestinal Gastrointestinal: reports: Early satiety - Genitourinary Genitourinary: reports: Incontinence (reports managing with intermittent toileting; strong urine smell though in bedroom/patient) - Musculoskeletal Musculoskeletal: reports: Stiffness, Muscle weakness, Assistive devices (uses walker to go in BR; otherwise mostly wheelchair bound) - Integumentary Integumentary: reports: Dryness - Neurological Neurological: reports: General weakness, Memory problems (seems more distraught; having difficulty with words; able to engage in conversation though) - Psychiatric Psychiatric: reports: Depression (worsening) - Endocrine Endocrine: reports: Diabetes type 2 (sugars have trended up some with intermittent use of Januvia last few days), Hypothyroidism (had been crushing; giving 225 mcg based on last labs) - All Other Systems All Other Systems: reports: Other (limited related to patients STM issues) Physical Exam - Vital Signs Temperature: 97.2 C Pulse Rate: 68 Respiratory Rate: 18 O2 Saturation: 98 (ra @ rest) Blood Pressure: 181/79 - Physical Exam General Appearance: positive: Alert, Mild distress Eyes Bilateral: positive: Other (keeps eyes closed through exam) ENT: negative: Dry mucous membranes Neck: positive: No JVD, Trachea midline. negative: Lymphadenopathy (R), Lymphadenopathy (L) Cardiovascular: positive: Regular rate & rhythm Respiratory: positive: No respiratory distress, Diminished in bases, Rales (crackles RLL;). negative: Wheezes Abdomen: positive: Non-tender, Soft, Nml bowel sounds, Obese Skin: positive: Pallor, Dryness Extremities: positive: Pedal edema (1+ LE up to mid calf) Neurologic/Psychiatric: positive: Disoriented to time, Weakness, Depressed mood/affect, Flat affect Palliative Care - POLST Patient has POLST: Yes POLST Status: DNR, Comfort Measures Pain: No pain Tiredness/Fatigue: Moderate (4-6) Drowsiness/Sedation: Moderate (4-6), Comment (easily drifts off to sleep) Nausea: None Anorexia: Mild (1-3) Dyspnea: None Depression: Severe (7-10) (stopped medications because doesn't want to prolong things/but denies wanting to kill self) Anxiety: Severe (7-10) Feelings of wellbeing/Perceived Quality of Life: Poor, Worsening Sleep: Variable sleep pattern Constipation: No Performance Status: Patient spends most of her time in the wheelchair, or bed, with the TV on. 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 She gets more confused. She can ambulate from the doorway of the bathroom to the toilet for toileting, she has been doing her own changing of her diapers and joe-care there is a strong smell of urine in the room today. She can feed herself. But otherwise needs assistance with dressing and bathing. - Palliative Care Discussion: Patient does express feelings of persistent depression, she has not been taking her Paxil the last few days. It does appear is been somewhat tapered off in the context she is taking it intermittently. She reports "life is no fun", she denies feeling depressed, though she perceives she is not doing anything, she presents with hopelessness with "what is the point of it anyway". She denies she is actively trying to commit suicide, she is just not wanting to prolong things as far as her health, and refusing pills. She does feel like she is a burden to her son, and expresses this consistently as a concern. At this point in time it does appear both her son and daughter are supporting those decisions, though I do not believe patient or her son really understand the implications as far as this is chronic management and may not change much near term, though she does have a higher risk for stroke, and most likely could impact her functional decline which would make it harder for her to be at home. This was reviewed both with patient and son. Son gave me permission to talk to their caregiver Stephanie. She is aware of patient's choice, she does understand is most likely consistent with her healthcare beliefs and decisions, expressions of concern she is made previously. She will continue to monitor as well, help patient and son are coping. Particularly if she continues to deteriorate. Impression and Recommendations - Palliative Care Impression: Is an 84-year-old woman who had hemorrhagic CVA early July, and mass was found consistent most likely with meningioma. She has had ongoing complications, and has had both functional and cognitive decline. She continues to struggle with her poor quality of life, and at this point in time wants to discontinue her medications. Patient presents with cognitive deficits, her choices are consistent with her healthcare beliefs and focus on comfort care only, continue to work with weighing benefits and burdens and implications of h er decisions moving forward. Palliative care continue to provide support and anticipatory guidance, and transition to hospice when appropriate. Recommendations/Counseling Done: 1. Hypothyroidism. Patient had been getting her thyroid medication with her question, this most likely was the culprit for her decline and worsening hypothyroidism. Counseling provided regarding son, he is worried about her having more hallucinations, so has been crushing and hiding the pills. Counseling provided to both the patient and his son regarding if to continue thyroid medication at this point, needs to NOT crush, and will need follow up lab as probably will need titration down. 2. Hypertension. Counseling provided to both patient and son, regarding discontinuing blood pressure meds putting patient at high risk for stroke. Patient and son will continue to discuss, he will continue to offer medications with information provided today, unclear if we will continue. 3. Generalized weakness. Patient does continue to decline, expect will continue on this path particular if not taking medications. Unfortunately this has huge implications regarding patient getting her care needs met, urgently encouraged son to get these [place] [facility] application and, so if patient does need placement have started the process. 4. Diabetes. Patient's blood sugars have drifted up, there is . She is currently intermittently taking her Januvia with her discontinuing her medications. Son does want to continue the insulin, instructed at this point he is on 18 units, if blood sugars greater than 200, for 3 days in a row, to increase to 20 units daily and call for further directions as needed. 5. Advanced care planning. Patient continues to be consistent in her messaging regarding focus on comfort, ready to go, denies feeling suicidal, as far as hastening , just does not want to prolong suffering and sees taking her medications consistent with this. Patient is seen palliative care scrum master on a regular basis, these have been consistent themes in their visit to. I will have her follow-up. Patient does have POLST with comfort measures, I am concerned son does not understand the implications, and though wants to focus on comfort and let her go, does panic and called 911 if care needs are overwhelming. We will continue to work with patient and son regarding clarifying goals of care, and long-term planning. With team Time Spent: 60 minutes with greater than 50% of this done in counseling regarding goals of care, symptom management and anticipatory guidance. Coordination of care with team.
== END 2019-09-28 11:01 | disposition home or self-care (01) ==
LOC: PC 11:00
PROVIDERS: ATTEND Nurse Practitioner Adult Health
DX: Z51.5 Encounter for palliative care (principal); E03.9 Hypothyroidism, unspecified; I10 Essential (primary) hypertension; R53.1 Weakness; E11.9 Type 2 diabetes mellitus without complications; F32.9 Major depressive disorder, single episode, unspecified; R32 Unspecified urinary incontinence; R93.0 Abnormal findings on diagnostic imaging of skull and head, not elsewhere classified; I69.321 Dysphasia following cerebral infarction; I69.311 Memory deficit following cerebral infarction; I69.398 Other sequelae of cerebral infarction; Z79.899 Other long term (current) drug therapy; Z79.4 Long term (current) use of insulin; Z66 Do not resuscitate
CPT/HCPCS: 99350

== ENCOUNTER 2019-10-31 15:51 | Outpatient (CLI) | payer MEDICARE, OTHER ==
[2019-10-31 16:55] LABS: BILIRUBIN,URINE NEGATIVE (NEGATIVE); GLUCOSE, URINE (UA) >=1000 mg/dL (NEGATIVE); KETONES,URINE (UA) NEGATIVE (NEGATIVE); LEUKOCYTE ESTERASE, URINE NEGATIVE (NEGATIVE); NITRITE,URINE NEGATIVE (NEGATIVE); OCCULT BLOOD,URINE LARGE (NEGATIVE); PROTEIN,URINE NEGATIVE (NEGATIVE); UROBILINOGEN,URINE 0.2 (NORMAL) E.U./dL (NORMAL)
[2019-10-31 17:08] LABS: BACTERIA,URINE Few /HPF (None Seen); CLARITY,URINE HAZY (CLEAR); RBC,URINE 0-5 /HPF (0-5); SQUAMOUS EPITHELIAL CELL,UR NONE SEEN (<= Few)
[2019-10-31 17:09] LABS: AMORPHOUS SEDIMENT,UR Moderate /LPF
== END 2019-10-31 23:59 | disposition home or self-care (01) ==
LOC: LAB.R 15:51
PROVIDERS: ATTEND Physician Assistant Medical
DX: R40.4 Transient alteration of awareness (principal)
CPT/HCPCS: 81001; 87086

== ENCOUNTER 2019-11-03 10:15 | Outpatient (CLI) | payer MEDICARE, OTHER ==
[2019-11-03 10:59] LABS: BASOPHILS % (AUTO) 0.5 %; EOSINOPHILS # (AUTO) 0.2 10^3/uL (0.0-0.7); EOSINOPHILS % (AUTO) 1.9 %; HGB - HEMOGLOBIN 13.9 g/dL (12.0-16.0); LYMPHOCYTES # (AUTO) 1.9 10^3/uL (1.5-3.5); LYMPHOCYTES % (AUTO) 22.1 %; MEAN CORPUSCULAR HEMOGLOBIN 29.8 pg (27.0-31.0); MEAN CORPUSCULAR HGB CONC 32.4 g/dL (32.0-36.0); MEAN CORPUSCULAR VOLUME 92.1 fL (81.0-99.0); MEAN PLATELET VOLUME 8.7 fL (7.9-10.8); MONOCYTES # (AUTO) 0.5 10^3/uL (0.0-1.0); MONOCYTES % (AUTO) 5.8 %; NEUTROPHILS # (AUTO) 6.1 10^3/uL (1.5-6.6); NEUTROPHILS % (AUTO) 69.2 %; PLT - PLATELET COUNT 158 10^3/uL (130-450); RED BLOOD COUNT 4.66 10^6/uL (4.20-5.40); RED CELL DISTRIBUTION WIDTH 13.7 % (12.0-15.0); WHITE BLOOD COUNT 8.7 x10^3/uL (4.8-10.8)
[2019-11-03 11:28] LABS: FREE T4 (FREE THYROXINE) 0.61 ng/dL (0.58-1.64)
[2019-11-03 11:58] LABS: THYROID STIMULATING HORMONE 61.01 uIU/mL (0.34-5.60)
== END 2019-11-03 23:59 | disposition home or self-care (01) ==
LOC: LAB.R 10:15
PROVIDERS: ATTEND Nurse Practitioner Adult Health
DX: E03.9 Hypothyroidism, unspecified (principal); D50.9 Iron deficiency anemia, unspecified
CPT/HCPCS: 84439; 84443; 85025

== ENCOUNTER 2019-11-03 13:53 | Outpatient (CLI) | payer MEDICARE, OTHER ==
--- NOTE | 2019-11-03 16:56 | CONSULTATION NOTE ---
Palliative Care Follow Up - Referral Referring Provider: Dr. Osmar Peacock Time of Visit: [id number] Referral setting: Home Referral Reason: Menigioma/hypothyroidism/AMS - Information Sources Records reviewed: Previous records reviewed History/Review of Systems obtained from: Patient, Family (son Ray), Caregiver (Stephanie) Exam limitations: Clinical condition (patient with dementia) - History of Present Illness Update Brief HPI Update: This is a 84-year-old woman had a history of acute stroke with infarction to her left posterior occipital lobe in 07/2018. On work-up she was found to have a mass consistent with meningioma, patient's deficits have continued with short- term memory issues, word finding, and ongoing functional decline as she was fairly sedentary prior to her stroke. She is mostly wheelchair-bound, pending for most ADLs. Though she has been able to do some toileting, but does have significant incontinence. She recently 08/02/[address] scan as result of increased confusion and hallucinations and ED visit. This did not show an increase in the size of the 3.5 cm mass nor acute signs or symptoms of recurrent stroke. But they did find a fairly elevated TSH of 56.01 and has steadily improved. She had an episode of acute confusion on 10/31, where she was up and ambulating, fearful of her son, thinking she was somewhere else. She was difficult to reorient, and in quite a bit of distress. She does not recall this episode, eventually this did calm down, and she awoke and still with confusion but improved. Arrangements were made for her to have a straight cath UA at the PCP. This did not show bacterial infection, and she has continued to improve since then. Lab draw today, does not show elevated white count, so infection is fairly certainly ruled out. Suspect underlying etiology is a TIA, as she has had these in the past. Patient continues to live of somewhat isolated and sedentary life, her son Adin provides support, meals, and oversight. 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 Social History - Living Situation Living arrangement: At home Living Situation: With family (son) Medications/Allergies - Medications Home Medications: Ambulatory Orders Medication Instructions Recorded Confirmed Losartan [Cozaar] 50 mg PO BID 08/02/18 09/28/19 Latanoprost 0.005% Ophth Drops 1 drops EACHEYE DAILY 08/03/18 09/28/19 [Xalatan Ophth Drops] Levothyroxine Sodium [Synthroid] 225 mcg PO DAILY 08/03/18 09/28/19 PARoxetine HCL [Paroxetine HCl] 40 mg PO DAILY 08/03/18 09/28/19 Sitagliptin Phosphate [Januvia] 50 mg PO BID 08/03/18 09/28/19 atenoloL [Atenolol] 50 mg PO DAILY 08/03/18 09/28/19 Atorvastatin [Lipitor] 80 mg PO QPM 10/28/18 09/28/19 Cholestyramine [Questran] 1 packet PO BID 10/28/18 09/28/19 Insulin Glargine [Lantus Solostar] 18 units SQ QPM 10/28/18 09/28/19 Potassium Chloride 10 meq PO DAILY 10/28/18 09/28/19 - Allergies Allergies/Adverse Reactions: Allergies Allergy/AdvReac Type Severity Reaction Status Date / Time cephradine Allergy Unknown Verified 08/03/19 05:05 gatifloxacin [From Tequin] Allergy Unknown Verified 08/03/19 05:05 sulfamethoxazole Allergy Unknown Verified 08/03/19 05:05 [From Septra] trimethoprim [From Septra] Allergy Unknown Verified 08/03/19 05:05 Review of Systems - Constitutional Constitutional: reports: Fatigue (had slept for a few days, but up and back previous level of functioning), Weakness - Eyes Eyes: reports: Blurred vision (macular degeneration;), Vision loss - Ears, Nose & Throat Ears, Nose & Throat: reports: Hearing loss (mild) - Cardiovascular Cardiovascular: reports: Decr. exercise tolerance - Respiratory Respiratory: denies: Cough, SOB at rest - Gastrointestinal Gastrointestinal: reports: Good appetite. denies: Constipation, Diarrhea, Nausea - Genitourinary Genitourinary: reports: Incontinence. denies: Dysuria - Musculoskeletal Musculoskeletal: reports: Stiffness, Limited range of motion, Muscle weakness, Transfer issues (uses mostsly the wheelchair in home; can ambulate short distances in bathroom to toilet) - Integumentary Integumentary: reports: Dryness - Neurological Neurological: reports: General weakness, Memory problems. denies: Headache - Psychiatric Psychiatric: reports: Depression, Anxiety - Endocrine Endocrine: reports: Diabetes type 2 (BS [id number]), Hypothyroidism - Hematologic/Lymphatic Hematologic/Lymphatic: denies: Recurrent infections - All Other Systems All Other Systems: reports: Reviewed and negative Physical Exam - Vital Signs Temperature: 97.4 C Pulse Rate: 66 Respiratory Rate: 18 O2 Saturation: 97 (ra @ rest) Blood Pressure: 122/62 - Physical Exam General Appearance: positive: No acute distress, Alert Eyes Bilateral: positive: Other (keeps eyes closed most of exam) ENT: positive: No signs of dehydration Neck: positive: Trachea midline Cardiovascular: positive: Regular rate & rhythm Respiratory: positive: No respiratory distress Abdomen: positive: Non-tender, Soft, Obese Skin: positive: Pallor Extremities: positive: Pedal edema (trace up to mid calf/baseline) Neurologic/Psychiatric: positive: Disoriented to time, Weakness, Depressed mood/affect, Flat affect Palliative Care - POLST Patient has POLST: Yes POLST Status: DNR, Comfort Measures Pain: No pain Sleep: Sleeps well Constipation: No Performance Status: Patient back to her baseline, requiring assistance with bathing, she is able to feed herself, spends most of her time in her room in her wheelchair listening to TV. She lives a very sedentary life. She is able to transfer herself to the bathroom for toileting, she is getting assistance with bathing every other day. - Palliative Care Discussion: Last visit, patient with her feelings of persistent depression, had stopped taking her pills for couple days. When discussed this would not impact her immediate health, but put her at higher risk for stroke, she resumed. She continues to have feelings of concern for being a burden on her son, for percept ion of poor quality of life, and now with increased social isolation with a CO VID 19 virus. She does not recall any of the last few days, confusion, does remember going to the doctor's office. She does not perceive herself as having symptoms of a urinary tract infection. Reviewed again with the son, has not moved further on making contact with [facility] and filling out forms. We discussed again if her functional status were to change abruptly, with another example this week, he would not be able to meet her care needs. He is aware emergency medical services coordinator has reached out and he has not called him back. Goals remain to focus on comfort, nothing to extend suffering or her life if something were to happen she would like to be let go. She feels she is ready to go, and frustrated that it hasn't been her time yet. Results - Lab Results Lab results reviewed: Yes Lab and Imaging Results: CBC unremarkable, TSH 61.01 and T4 0.61. Impression and Recommendations - Palliative Care Impression: This is an 84-year-old woman who has history of hemorrhagic CVA early July 2018, and currently has a mass consistent with meningioma 3.5 mg. She had another episode of severe confusion, hallucinations, and paranoia and ruled out urinary tract infection. Given the duration and recovery, most likely attributed to TIA. She continues to present with cognitive deficits, short-term memory issues, and perceives her quality of life is quite poor. Palliative care continue to provide support and anticipatory guidance, and transition to hospice when appropriate. Recommendations/Counseling Done: 1. Hypothyroidism. Patient had been getting her thyroid medication with her Questran, was thought to be interfering with aborption has repeat TSH has risen not decreased form 08/03 56.01 to 09/05 99.28. Son giving thyroid medication first thing in the morning, with some improvement to 61.01 on 11/02, T4 has come into normal range of 0.61. She is currently on 225 mcg, this still does not quite make sense. Will reach out to endocrinology to see if any insight. Patient unable to make any trips [place], given her homebound status and the [place] VID 19 virus. 2. Altered mental status. This does appear to have resolved, suspect at this point in time given have ruled out UTI, blood sugars in normal range, would not attribute to her thyroid issues, most likely as a result of a TIA. She is back to her baseline, but has provided an impetus hopefully for son to follow through on long-term planning. 3. Diabetes type 2. Blood sugars remained in acceptable range, keeping her on the higher side given goals of care and wanting to avoid hypoglycemia. 4. Advanced care planning. Patient continues to be consistent in her messaging wanting to focus on comfort, ready to go, she does has persistent depression, she does not want to prolong her suffering or her life, but does not believe she is suicidal. Patient has been supported by the palliative care cadd technician on a regular basis, she does have a POLST with comfort measures, she continues to remain stable with intermittent issues. Palliative care continue to follow until transition to hospice is appropriate Time Spent: 45 minutes with greater than 50% of this done in counseling and coordination of care labs drawn and delivered to [facility]. Will reach out to endocrinology for further insight into patient's continued elevated TSH.
== END 2019-11-03 13:54 | disposition home or self-care (01) ==
LOC: PC 13:53
PROVIDERS: ATTEND Nurse Practitioner Adult Health
DX: Z51.5 Encounter for palliative care (principal); R41.82 Altered mental status, unspecified; E03.9 Hypothyroidism, unspecified; R93.89 Abnormal findings on diagnostic imaging of other specified body structures; I69.390 Apraxia following cerebral infarction; I69.311 Memory deficit following cerebral infarction; R32 Unspecified urinary incontinence; F32.9 Major depressive disorder, single episode, unspecified; E11.9 Type 2 diabetes mellitus without complications; Z79.4 Long term (current) use of insulin; Z79.899 Other long term (current) drug therapy; Z66 Do not resuscitate
CPT/HCPCS: 99349

== ENCOUNTER 2019-12-20 11:41 | Emergency (ER) | payer MEDICARE, OTHER ==
--- NOTE | 2019-12-20 13:58 | XRAY Report ---
Reason: sudden onset lower back pain Procedure Date: 12/20/2019 Accession Number: [id number] / [id number] Procedure: XR - Lumbar Spine 2 View CPT Code: Final Report FULL RESULT: EXAM: LUMBOSACRAL SPINE RADIOGRAPHY EXAM DATE: 12/20/2019 01:27 PM. CLINICAL HISTORY: Sudden onset lower back pain. No history of trauma. COMPARISONS: None. TECHNIQUE: 2 views. FINDINGS: Alignment: The lateral view is suboptimal, and the lumbar vertebra are poorly visualized. Lumbar lordosis is straightened. Bones: Five [id number] lumbar vertebral bodies are present. The L2 and L3 vertebral bodies are not clearly from one another, and may be congenitally fused. No acute fracture identified. Disks: Endplate osteophytes are seen throughout the lumbar spine. Facets: Not visualized. Sacroiliac Joints: The left sacroiliac joint appears unremarkable. The right is not visualized. Soft Tissues: Normal. The visualized bowel gas pattern is normal. IMPRESSION: 1. Suboptimal images. The vertebra are poorly visualized. 2. No acute fracture identified. 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 Moderate degenerative change. RADIA
[2019-12-20 14:03] LABS: BASOPHILS # (AUTO) 0.1 10^3/uL (0.0-0.1); BASOPHILS % (AUTO) 0.5 %; EOSINOPHILS # (AUTO) 0.2 10^3/uL (0.0-0.7); EOSINOPHILS % (AUTO) 1.8 %; LYMPHOCYTES # (AUTO) 2.2 10^3/uL (1.5-3.5); LYMPHOCYTES % (AUTO) 20.5 %; MEAN CORPUSCULAR HEMOGLOBIN 29.9 pg (27.0-31.0); MEAN CORPUSCULAR HGB CONC 32.7 g/dL (32.0-36.0); MEAN CORPUSCULAR VOLUME 91.6 fL (81.0-99.0); MEAN PLATELET VOLUME 8.6 fL (7.9-10.8); MONOCYTES # (AUTO) 0.6 10^3/uL (0.0-1.0); MONOCYTES % (AUTO) 5.8 %; NEUTROPHILS # (AUTO) 7.5 10^3/uL (1.5-6.6); NEUTROPHILS % (AUTO) 70.7 %; PLT - PLATELET COUNT 168 10^3/uL (130-450); RED BLOOD COUNT 5.01 10^6/uL (4.20-5.40); RED CELL DISTRIBUTION WIDTH 13.6 % (12.0-15.0); WHITE BLOOD COUNT 10.6 x10^3/uL (4.8-10.8)
[2019-12-20 14:04] LABS: BILIRUBIN,URINE NEGATIVE (NEGATIVE); GLUCOSE, URINE (UA) 100 mg/dL (NEGATIVE); KETONES,URINE (UA) NEGATIVE (NEGATIVE); LEUKOCYTE ESTERASE, URINE NEGATIVE (NEGATIVE); NITRITE,URINE POSITIVE (NEGATIVE); OCCULT BLOOD,URINE NEGATIVE (NEGATIVE); PROTEIN,URINE NEGATIVE (NEGATIVE); UROBILINOGEN,URINE 0.2 (NORMAL) E.U./dL (NORMAL)
[2019-12-20 14:07] LABS: CLARITY,URINE HAZY (CLEAR)
[2019-12-20 14:15] LABS: BACTERIA,URINE Few /HPF (None Seen); RBC,URINE 0-5 /HPF (0-5); SQUAMOUS EPITHELIAL CELL,UR RARE Squamous (<= Few)
[2019-12-20 14:23] LABS: ALBUMIN 4.2 g/dL (3.2-5.5); ALBUMIN/GLOBULIN RATIO 1.5 (1.0-2.2); BILIRUBIN,TOTAL 0.8 mg/dL (0.2-1.0); CALCIUM 9.3 mg/dL (8.5-10.3); CREATININE 0.8 mg/dL (0.4-1.0)
--- NOTE | 2019-12-20 15:22 | CT Report ---
Reason: evaluation for compression fracture. Procedure Date: 12/20/2019 Accession Number: [id number] / [id number] Procedure: CT - LUMBAR SPINE WO CPT Code: Final Report FULL RESULT: EXAM: CT LUMBAR SPINE WITHOUT CONTRAST EXAM DATE: 12/20/2019 03:06 PM. CLINICAL HISTORY: Evaluation for compression fracture. COMPARISONS: None. TECHNIQUE: Thin-section axial images were acquired of the lumbar spine from T12 to S1 without contrast. Post-processing: Coronal and sagittal reformats. Other: None. In accordance with CT protocol optimization, one or more of the following dose reduction techniques were utilized for this exam: automated exposure control, adjustment of mA and/or KV based on patient size, or use of iterative reconstructive technique. FINDINGS: Alignment: No scoliosis or spondylolisthesis. Bones: Significant osteopenia. No acute displaced fracture or malalignment. Musculature: Normal. No fatty atrophy. Other: The visualized retroperitoneum is unremarkable. IMPRESSION: Significant osteopenia. No acute displaced fracture or malalignment. RADIA
--- NOTE | 2019-12-20 15:36 | ED Physician Documentation ---
PD HPI BACK PAIN - Stated complaint Stated Complaint: BACK PX - Chief complaint Chief Complaint: Back Pain - History obtained from History obtained from: Patient, Family - History of Present Illness Timing - onset: How many days ago (3) Timing - duration: Days (3) Timing - details: Abrupt onset, Still present Location: Lower, Left Quality: Pain, Spasm, Sharp. No: Similar to prior episodes Associated symptoms: No: Fever, Numbness, Incontinent of urine, Unable to urinate, Hematuria, Incontinent of stool Improves with: Rest Worsened by: Movement, Twisting Similar symptoms before: Has not had sx before Recently seen: Not recently seen - Additional information Additional information: 84-year-old female with advanced dementia and morbid obesity is taken care of by her son in her home and 3 days ago the patient began to experience lower back pain in the left side and this pain did not resolve it is worse today than yesterday and she is having a hard time getting out of bed. She normally is able to get herself in and out of bed and get herself dressed and and do her toileting. Review of Systems Constitutional: denies: Fever Eyes: denies: Decreased vision Ears: denies: Ear pain Nose: denies: Rhinorrhea / runny nose, Congestion Throat: denies: Sore throat Cardiac: denies: Palpitations Respiratory: denies: Dyspnea, Cough GI: denies: Vomiting, Diarrhea : denies: Dysuria Skin: denies: Rash Musculoskeletal: reports: Back pain. 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 : Incontinence HEENT: Macular degeneration Psych: None Musculoskeletal: Osteoarthritis Derm: None - Past Surgical History Past Surgical History: Yes General: Cholecystectomy, Appendectomy, Colonoscopy Ortho: Hip replacement, Other /PEANUT SALTER: section, Hysterectomy Cardiovascular: Coronary stent HEENT: Tonsil/Adenoidectomy - Present Medications Home Medications: Ambulatory Orders Medication Instructions Recorded Confirmed Losartan [Cozaar] 50 mg PO BID 08/02/18 09/28/19 Latanoprost 0.005% Ophth Drops 1 drops EACHEYE DAILY 01/09/19 03/05/20 [Xalatan Ophth Drops] Levothyroxine Sodium [Synthroid] 225 mcg PO DAILY 08/03/18 09/28/19 PARoxetine HCL [Paroxetine HCl] 40 mg PO DAILY 08/03/18 09/28/19 Sitagliptin Phosphate [Januvia] 50 mg PO BID 08/03/18 09/28/19 atenoloL [Atenolol] 50 mg PO DAILY 08/03/18 09/28/19 Atorvastatin [Lipitor] 80 mg PO QPM 10/28/18 09/28/19 Cholestyramine [Questran] 1 packet PO BID 10/28/18 09/28/19 Insulin Glargine [Lantus Solostar] 18 units SQ QPM 10/28/18 09/28/19 Potassium Chloride 10 meq PO DAILY 10/28/18 09/28/19 Cyclobenzaprine [Flexeril] 10 mg PO TID PRN #20 tablet 12/20/19 Hydrocodone/Acetaminophen 1 - 2 each PO Q6H PRN #14 tablet 12/20/19 [Hydrocodon-Acetaminophen 5-325] Nitrofurantoin Monohyd/M-Cryst 100 mg PO BID #10 capsule 12/20/19 [Macrobid 100 mg Capsule] - Allergies Allergies/Adverse Reactions: Allergies Allergy/AdvReac Type Severity Reaction Status Date / Time cephradine Allergy Unknown Verified 08/03/19 05:05 gatifloxacin [From Tequin] Allergy Unknown Verified 08/03/19 05:05 sulfamethoxazole Allergy Unknown Verified 08/03/19 05:05 [From Septra] trimethoprim [From Septra] Allergy Unknown Verified 08/03/19 05:05 - Social History Does the pt smoke?: No Smoking Status: Never smoker Does the pt drink ETOH?: No Does the pt have substance abuse?: No - Immunizations Immunizations are current?: Yes - POLST Patient has POLST: Yes POLST Status: DNR PD ED PE NORMAL - Vitals Vital signs reviewed: Yes (hypertensive ) - General General: No acute distress, Well developed/nourished, Other (alert but confused) - HEENT HEENT: Atraumatic, PERRL, EOMI - Neck Neck: Supple, no meningeal sign - Cardiac Cardiac: RRR, No murmur - Respiratory Respiratory: No respiratory distress, Clear bilaterally - Abdomen Abdomen: Soft, Non tender, Other (obese) - Back Back: No CVA TTP, No spinal TTP, Other (There is minimal tenderness to the lower lumbar spine on the left side. There is no pain without movement. 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 plate caulker 2-12 intact, No motor deficit, No sensory deficit, Normal speech Eye Opening: Spontaneous Motor: Obeys Commands Verbal: Confused GCS Score: 14 - Psych Psych: Normal mood, Normal affect Results - Vitals Vitals: Vital Signs - 24 hr 12/20/19 12/20/19 12/20/19 11:47 11:51 14:03 Temperature 36.3 C L Heart Rate 62 60 58 L Respiratory 16 16 18 Rate Blood Pressure 152/62 H 158/61 H 137/67 H O2 Saturation 99 99 97 Oxygen O2 Source Room air - Labs Labs: Laboratory Tests 12/20/19 12/20/19 12/20/19 13:50 13:50 13:50 WBC 10.6 RBC 5.01 Hgb 15.0 Hct 45.9 MCV 91.6 MCH 29.9 MCHC 32.7 RDW 13.6 Plt Count 168 MPV 8.6 Neut # (Auto) 7.5 H Lymph # (Auto) 2.2 [place] # (Auto) 0.6 Eos # (Auto) 0.2 Baso # (Auto) 0.1 Absolute Nucleated RBC 0.00 Nucleated RBC % 0.0 Sodium 136 Potassium 3.9 Chloride 98 L Carbon Dioxide 27 Anion Gap 11.0 BUN 19 Creatinine 0.8 Estimated GFR (MDRD) 69 L Glucose 272 H Calcium 9.3 Total Bilirubin 0.8 AST 18 ALT 15 Alkaline Phosphatase 99 Total Protein 7.0 Albumin 4.2 Globulin 2.8 Albumin/Globulin Ratio 1.5 Lipase 28 Urine Color YELLOW Urine Clarity HAZY Urine pH 5.0 Ur Specific [place] 1.025 Urine Protein NEGATIVE Urine Glucose (UA) 100 H Urine Ketones NEGATIVE Urine Occult Blood NEGATIVE Urine Nitrite POSITIVE H Urine Bilirubin NEGATIVE Urine Urobilinogen 0.2 (NORMAL) Ur Leukocyte Esterase NEGATIVE Urine RBC 0-5 Urine WBC 4-5 Ur Squamous Epith Cells RARE Squamous Urine Bacteria Few Ur Microscopic Review INDICATED Urine Culture Comments INDICATED - Rads (name of study) CT lumbar spine Radiology: Prelim report reviewed (Impression: Significant osteopenia. No acute displaced fracture or malalignment.), EMP read indepedently, See rad report PD MEDICAL DECISION MAKING - ED course Complexity details: reviewed old records, reviewed results, re-evaluated patient, considered differential, d/w patient ED course: 84-year-old female with advanced dementia and morbid obesity has increasing back pain over the past 3 days and is now not able to care for self. My initial concern was for acute compression fracture given the acute onset and the nature of the pain being only present with movement. The patient's imaging studies show no evidence of compression fracture. She has a different prognosis with lumbar spasm then compression fracture and I have shared this with her son will provide some pain medication a muscle relaxant and time. Departure - Departure Disposition: 01 Home, Self Care Clinical Impression: Back pain of lumbar region with sciatica UTI (urinary tract infection) Qualifiers: Urinary tract infection type: acute cystitis Hematuria presence: without hematuria Qualified Code(s): N30.00 - Acute cystitis without hematuria Condition: Stable Instructions: Flexeril, ED Sciatica, ED UTI Cystitis Female Follow-Up: Osmar Peacock MD [Primary Care Provider] - Prescriptions: Cyclobenzaprine [Flexeril] 10 mg PO TID PRN #20 tablet PRN Reason: Spasms Hydrocodone/Acetaminophen [Hydrocodon-Acetaminophen 5-325] 1 - 2 each PO Q6H PRN #14 tablet PRN Reason: pain Nitrofurantoin Monohyd/M-Cryst [Macrobid 100 mg Capsule] 100 mg PO BID #10 capsule
[2019-12-20] MEDS ORDERED: KETOROLAC 60 MG/2 ML VIAL IM STA (15:37)
[2019-12-20 16:34] VITALS: BP 140/61
== END 2019-12-20 17:07 | disposition home or self-care (01) ==
LOC: ED 11:41
DX: M54.40 Lumbago with sciatica, unspecified side (principal); M62.830 Muscle spasm of back; M85.88 Other specified disorders of bone density and structure, other site; N30.00 Acute cystitis without hematuria; I10 Essential (primary) hypertension; E11.9 Type 2 diabetes mellitus without complications; Z79.4 Long term (current) use of insulin; E66.01 Morbid (severe) obesity due to excess calories; Z68.42 Body mass index [BMI] 45.0-49.9, adult; F03.90 Unspecified dementia, unspecified severity, without behavioral disturbance, psychotic disturbance, mood disturbance, and anxiety; Z66 Do not resuscitate
CPT/HCPCS: 36415; 72100; 72131; 80053; 81001; 81003; 83690; 85025; 87077; 87086; 87181; 96372; 99284

== ENCOUNTER 2019-12-30 03:28 | Outpatient (CLI) | payer MEDICARE, OTHER | END 2019-12-30 03:29 | disposition EMS.NT | LOC: EMS 03:28 | PROVIDERS: ATTEND Surgery | DX: Z03.89 Encounter for observation for other suspected diseases and conditions ruled out (principal) ==

== ENCOUNTER 2019-12-31 07:54 | Outpatient (CLI) | payer MEDICARE, OTHER | END 2019-12-31 07:55 | disposition critical access hospital (66) | LOC: EMS 07:54 | PROVIDERS: ATTEND Surgery | DX: R41.82 Altered mental status, unspecified (principal) | CPT/HCPCS: A0425; A0429 ==

== ENCOUNTER 2020-01-03 14:20 | Outpatient (CLI) | payer MEDICARE, OTHER | END 2020-01-03 14:21 | LOC: EMS 14:20 | PROVIDERS: ATTEND Surgery | DX: N39.0 Urinary tract infection, site not specified (principal); R41.82 Altered mental status, unspecified; E86.0 Dehydration; E66.01 Morbid (severe) obesity due to excess calories; Z74.01 Bed confinement status | CPT/HCPCS: A0425; A0428 ==

== ENCOUNTER 2020-01-03 23:00 | Outpatient (CLI) | payer MEDICARE, OTHER | END 2020-01-03 23:59 | disposition home or self-care (01) | LOC: LAB.R 23:00 | DX: E03.9 Hypothyroidism, unspecified (principal) | CPT/HCPCS: 84443 ==

== ENCOUNTER 2020-01-05 10:30 | Outpatient (CLI) | payer MEDICARE, OTHER ==
[2020-01-05 10:55] LABS: BASOPHILS % (AUTO) 0.4 %; EOSINOPHILS # (AUTO) 0.3 10^3/uL (0.0-0.7); EOSINOPHILS % (AUTO) 3.2 %; HGB - HEMOGLOBIN 13.6 g/dL (12.0-16.0); LYMPHOCYTES # (AUTO) 2.2 10^3/uL (1.5-3.5); MEAN CORPUSCULAR HEMOGLOBIN 29.9 pg (27.0-31.0); MEAN CORPUSCULAR HGB CONC 32.2 g/dL (32.0-36.0); MEAN CORPUSCULAR VOLUME 92.7 fL (81.0-99.0); MEAN PLATELET VOLUME 8.5 fL (7.9-10.8); MONOCYTES # (AUTO) 0.5 10^3/uL (0.0-1.0); MONOCYTES % (AUTO) 6.2 %; NEUTROPHILS # (AUTO) 5.1 10^3/uL (1.5-6.6); NEUTROPHILS % (AUTO) 62.6 %; PLT - PLATELET COUNT 166 10^3/uL (130-450); RED BLOOD COUNT 4.55 10^6/uL (4.20-5.40); RED CELL DISTRIBUTION WIDTH 13.9 % (12.0-15.0); WHITE BLOOD COUNT 8.1 x10^3/uL (4.8-10.8)
[2020-01-05 11:10] LABS: ALBUMIN 3.5 g/dL (3.2-5.5); ALBUMIN/GLOBULIN RATIO 1.4 (1.0-2.2); BILIRUBIN,TOTAL 0.9 mg/dL (0.2-1.0); CALCIUM 8.8 mg/dL (8.5-10.3); CREATININE 0.7 mg/dL (0.4-1.0)
== END 2020-01-05 23:59 | disposition home or self-care (01) ==
LOC: LAB.R 10:30
DX: E03.9 Hypothyroidism, unspecified (principal); R68.89 Other general symptoms and signs
CPT/HCPCS: 80053; 84439; 85025; 86376

== ENCOUNTER 2020-03-08 11:26 | Outpatient (CLI) | payer MEDICARE, OTHER ==
[2020-03-08 14:13] LABS: BASOPHILS % (AUTO) 0.5 %; EOSINOPHILS # (AUTO) 0.2 10^3/uL (0.0-0.7); EOSINOPHILS % (AUTO) 2.5 %; LYMPHOCYTES # (AUTO) 1.8 10^3/uL (1.5-3.5); LYMPHOCYTES % (AUTO) 24.4 %; MEAN CORPUSCULAR HEMOGLOBIN 29.6 pg (27.0-31.0); MEAN CORPUSCULAR HGB CONC 33.3 g/dL (32.0-36.0); MEAN PLATELET VOLUME 8.7 fL (7.9-10.8); MONOCYTES # (AUTO) 0.5 10^3/uL (0.0-1.0); MONOCYTES % (AUTO) 7.2 %; NEUTROPHILS # (AUTO) 4.8 10^3/uL (1.5-6.6); NEUTROPHILS % (AUTO) 64.9 %; PLT - PLATELET COUNT 195 10^3/uL (130-450); RED BLOOD COUNT 4.73 10^6/uL (4.20-5.40); RED CELL DISTRIBUTION WIDTH 13.8 % (12.0-15.0); WHITE BLOOD COUNT 7.5 x10^3/uL (4.8-10.8)
[2020-03-08 14:18] LABS: CALCIUM 8.8 mg/dL (8.5-10.3); CREATININE 0.6 mg/dL (0.4-1.0)
== END 2020-03-08 23:59 | disposition home or self-care (01) ==
LOC: LAB.R 11:26
DX: B02.9 Zoster without complications (principal)
CPT/HCPCS: 80048; 85025

== ENCOUNTER 2020-07-10 07:00 | Outpatient (CLI) | payer MEDICARE, OTHER ==
[2020-07-10 09:17] LABS: BASOPHILS % (AUTO) 0.5 %; EOSINOPHILS # (AUTO) 0.1 10^3/uL (0.0-0.7); EOSINOPHILS % (AUTO) 1.5 %; HGB - HEMOGLOBIN 12.8 g/dL (12.0-16.0); LYMPHOCYTES # (AUTO) 1.6 10^3/uL (1.5-3.5); MEAN CORPUSCULAR HEMOGLOBIN 29.3 pg (27.0-31.0); MEAN CORPUSCULAR HGB CONC 32.6 g/dL (32.0-36.0); MEAN CORPUSCULAR VOLUME 89.9 fL (81.0-99.0); MEAN PLATELET VOLUME 9.3 fL (7.9-10.8); MONOCYTES # (AUTO) 0.6 10^3/uL (0.0-1.0); MONOCYTES % (AUTO) 8.4 %; NEUTROPHILS # (AUTO) 4.3 10^3/uL (1.5-6.6); NEUTROPHILS % (AUTO) 65.3 %; PLT - PLATELET COUNT 148 10^3/uL (130-450); RED BLOOD COUNT 4.37 10^6/uL (4.20-5.40); RED CELL DISTRIBUTION WIDTH 13.3 % (12.0-15.0); WHITE BLOOD COUNT 6.5 x10^3/uL (4.8-10.8)
[2020-07-10 10:46] LABS: ALBUMIN 3.1 g/dL (3.2-5.5); ALBUMIN/GLOBULIN RATIO 1.3 (1.0-2.2); BILIRUBIN,TOTAL 0.6 mg/dL (0.2-1.0); CALCIUM 8.9 mg/dL (8.5-10.3); CREATININE 0.4 mg/dL (0.4-1.0); TOTAL PROTEIN 5.4 g/dL (6.7-8.2)
== END 2020-07-10 23:59 | disposition home or self-care (01) ==
LOC: LAB.R 07:00
DX: E11.9 Type 2 diabetes mellitus without complications (principal); E03.9 Hypothyroidism, unspecified
CPT/HCPCS: 80053; 84443; 85025

== ENCOUNTER 2020-07-15 07:00 | Outpatient (CLI) | payer MEDICARE, OTHER ==
[2020-07-15 15:29] LABS: CALCIUM 9.2 mg/dL (8.5-10.3); CREATININE 0.5 mg/dL (0.4-1.0)
[2020-07-15 15:30] LABS: BASOPHILS % (AUTO) 0.4 %; EOSINOPHILS # (AUTO) 0.1 10^3/uL (0.0-0.7); EOSINOPHILS % (AUTO) 1.3 %; HGB - HEMOGLOBIN 13.6 g/dL (12.0-16.0); LYMPHOCYTES # (AUTO) 1.2 10^3/uL (1.5-3.5); LYMPHOCYTES % (AUTO) 15.5 %; MEAN CORPUSCULAR HEMOGLOBIN 29.5 pg (27.0-31.0); MEAN CORPUSCULAR HGB CONC 32.5 g/dL (32.0-36.0); MEAN CORPUSCULAR VOLUME 90.7 fL (81.0-99.0); MONOCYTES # (AUTO) 0.8 10^3/uL (0.0-1.0); MONOCYTES % (AUTO) 9.8 %; NEUTROPHILS # (AUTO) 5.6 10^3/uL (1.5-6.6); NEUTROPHILS % (AUTO) 72.7 %; PLT - PLATELET COUNT 150 10^3/uL (130-450); RED BLOOD COUNT 4.61 10^6/uL (4.20-5.40); RED CELL DISTRIBUTION WIDTH 13.2 % (12.0-15.0); WHITE BLOOD COUNT 7.7 x10^3/uL (4.8-10.8)
[2020-07-15 19:49] LABS: BILIRUBIN,URINE NEGATIVE (NEGATIVE); GLUCOSE, URINE (UA) NEGATIVE (NEGATIVE); KETONES,URINE (UA) 15 mg/dL (NEGATIVE); LEUKOCYTE ESTERASE, URINE NEGATIVE (NEGATIVE); NITRITE,URINE POSITIVE (NEGATIVE); OCCULT BLOOD,URINE TRACE-LYSE (NEGATIVE); PROTEIN,URINE NEGATIVE (NEGATIVE); UROBILINOGEN,URINE 0.2 (NORMAL) E.U./dL (NORMAL)
[2020-07-15 19:51] LABS: CLARITY,URINE CLOUDY (CLEAR)
[2020-07-15 20:06] LABS: AMORPHOUS SEDIMENT,UR Moderate /LPF; BACTERIA,URINE Moderate /HPF (None Seen); RBC,URINE 0-5 /HPF (0-5); SQUAMOUS EPITHELIAL CELL,UR RARE Squamous (<= Few)
== END 2020-07-15 23:59 | disposition home or self-care (01) ==
LOC: LAB.R 07:00
DX: N39.0 Urinary tract infection, site not specified (principal); R41.82 Altered mental status, unspecified
CPT/HCPCS: 80048; 81001; 85025; 87086; 87181

== ENCOUNTER 2020-08-29 17:30 | Outpatient (CLI) | payer MEDICARE, OTHER | END 2020-08-29 23:59 | disposition home or self-care (01) | LOC: LAB.R 17:30 | DX: E03.9 Hypothyroidism, unspecified (principal) | CPT/HCPCS: 84443 ==

== ENCOUNTER 2020-09-29 02:30 | Outpatient (CLI) | payer MEDICARE, OTHER ==
[2020-09-29 06:04] LABS: BASOPHILS % (AUTO) 0.6 %; EOSINOPHILS # (AUTO) 0.1 10^3/uL (0.0-0.7); EOSINOPHILS % (AUTO) 1.3 %; HCT - HEMATOCRIT 41.5 % (37.0-47.0); HGB - HEMOGLOBIN 13.4 g/dL (12.0-16.0); LYMPHOCYTES % (AUTO) 29.6 %; MEAN CORPUSCULAR HGB CONC 32.3 g/dL (32.0-36.0); MEAN CORPUSCULAR VOLUME 89.8 fL (81.0-99.0); MEAN PLATELET VOLUME 9.2 fL (7.9-10.8); MONOCYTES # (AUTO) 0.5 10^3/uL (0.0-1.0); MONOCYTES % (AUTO) 7.2 %; NEUTROPHILS # (AUTO) 4.1 10^3/uL (1.5-6.6); NEUTROPHILS % (AUTO) 60.9 %; PLT - PLATELET COUNT 147 10^3/uL (130-450); RED BLOOD COUNT 4.62 10^6/uL (4.20-5.40); WHITE BLOOD COUNT 6.7 x10^3/uL (4.8-10.8)
[2020-09-29 06:12] LABS: ALBUMIN 3.3 g/dL (3.2-5.5); ALBUMIN/GLOBULIN RATIO 1.7 (1.0-2.2); BILIRUBIN,TOTAL 1.1 mg/dL (0.2-1.0); CALCIUM 8.9 mg/dL (8.5-10.3); CREATININE 0.4 mg/dL (0.4-1.0); POTASSIUM 3.6 mmol/L (3.5-5.0); TOTAL PROTEIN 5.3 g/dL (6.7-8.2)
== END 2020-09-29 23:59 | disposition home or self-care (01) ==
LOC: LAB.R 02:30
PROVIDERS: ATTEND Family Medicine
DX: E03.9 Hypothyroidism, unspecified (principal); I10 Essential (primary) hypertension; D64.9 Anemia, unspecified
CPT/HCPCS: 80053; 84443; 85025

== ENCOUNTER 2020-11-23 08:00 | Outpatient (CLI) | payer MEDICARE, OTHER ==
[2020-11-23 14:21] LABS: BASOPHILS % (AUTO) 0.4 %; EOSINOPHILS # (AUTO) 0.2 10^3/uL (0.0-0.7); EOSINOPHILS % (AUTO) 1.8 %; HCT - HEMATOCRIT 44.2 % (37.0-47.0); HGB - HEMOGLOBIN 14.4 g/dL (12.0-16.0); LYMPHOCYTES # (AUTO) 2.1 10^3/uL (1.5-3.5); LYMPHOCYTES % (AUTO) 24.3 %; MEAN CORPUSCULAR HEMOGLOBIN 29.1 pg (27.0-31.0); MEAN CORPUSCULAR HGB CONC 32.6 g/dL (32.0-36.0); MEAN CORPUSCULAR VOLUME 89.5 fL (81.0-99.0); MEAN PLATELET VOLUME 8.9 fL (7.9-10.8); MONOCYTES # (AUTO) 0.5 10^3/uL (0.0-1.0); MONOCYTES % (AUTO) 5.5 %; NEUTROPHILS # (AUTO) 5.8 10^3/uL (1.5-6.6); NEUTROPHILS % (AUTO) 67.5 %; PLT - PLATELET COUNT 141 10^3/uL (130-450); RED BLOOD COUNT 4.94 10^6/uL (4.20-5.40); RED CELL DISTRIBUTION WIDTH 14.9 % (12.0-15.0); WHITE BLOOD COUNT 8.6 x10^3/uL (4.8-10.8)
[2020-11-23 14:42] LABS: ESTIMATED AVERAGE GLUCOSE 143 mg/dL (70-100); HEMOGLOBIN A1c% 6.6 % (4.27-6.07)
[2020-11-23 14:50] LABS: THYROID STIMULATING HORMONE 0.6 uIU/mL (0.34-5.60)
[2020-11-23 14:52] LABS: ALBUMIN 3.2 g/dL (3.2-5.5); ALBUMIN/GLOBULIN RATIO 1.4 (1.0-2.2); ALKALINE PHOSPHATASE 70 IU/L (42-121); ALT ALANINE AMINOTRANSFERASE 17 IU/L (10-60); AST ASPARTATE AMINOTRANSFERASE 14 IU/L (10-42); BILIRUBIN,TOTAL 0.9 mg/dL (0.2-1.0); BUN - BLOOD UREA NITROGEN 22 mg/dL (6-20); CARBON DIOXIDE - CO2 25 mmol/L (21-32); CHLORIDE 106 mmol/L (101-111); CHOL/HDL RATIO 5.2 (<4.4); CHOLESTEROL 182 mg/dL; GLUCOSE 142 mg/dL (70-100); HDL CHOLESTEROL 35 mg/dL; LDL CHOLESTEROL,CALCULATED 98 mg/dL; LDL/HDL RATIO 2.8 (<4.4); POTASSIUM 3.5 mmol/L (3.5-5.0); SODIUM 138 mmol/L (135-145); TOTAL PROTEIN 5.5 g/dL (6.7-8.2); TRIGLYCERIDES 243 mg/dL; VLDL CHOLESTEROL 49 mg/dL
[2020-11-23 15:42] LABS: CREATININE < 0.3 mg/dL (0.4-1.0)
== END 2020-11-23 23:59 | disposition home or self-care (01) ==
LOC: LAB.R 08:00
DX: E78.5 Hyperlipidemia, unspecified (principal); E87.6 Hypokalemia; E03.9 Hypothyroidism, unspecified; R68.89 Other general symptoms and signs; M62.81 Muscle weakness (generalized); E66.9 Obesity, unspecified; E11.9 Type 2 diabetes mellitus without complications; Z79.4 Long term (current) use of insulin; R53.83 Other fatigue
CPT/HCPCS: 80053; 80061; 83036; 83721; 84443; 85025

== ENCOUNTER 2020-12-31 07:00 | Outpatient (CLI) | payer MEDICARE, OTHER ==
[2020-12-31 17:54] LABS: ALBUMIN 3.3 g/dL (3.2-5.5); CREATININE 0.3 mg/dL (0.4-1.0)
[2020-12-31 18:16] LABS: THYROID STIMULATING HORMONE 0.13 uIU/mL (0.34-5.60)
[2020-12-31 18:18] LABS: FREE T4 (FREE THYROXINE) 1.8 ng/dL (0.58-1.64)
== END 2020-12-31 23:59 | disposition home or self-care (01) ==
LOC: LAB.R 07:00
DX: R79.9 Abnormal finding of blood chemistry, unspecified (principal); E03.9 Hypothyroidism, unspecified
CPT/HCPCS: 82040; 82565; 84439; 84443; 84520

== ENCOUNTER 2021-02-19 07:00 | Outpatient (CLI) | payer MEDICARE, OTHER ==
[2021-02-19 19:05] LABS: THYROID STIMULATING HORMONE 20.8 uIU/mL (0.34-5.60)
[2021-02-19 19:07] LABS: FREE T4 (FREE THYROXINE) 0.68 ng/dL (0.58-1.64)
== END 2021-02-19 23:59 | disposition home or self-care (01) ==
LOC: LAB.R 07:00
DX: E03.9 Hypothyroidism, unspecified (principal)
CPT/HCPCS: 84439; 84443

== ENCOUNTER 2021-04-10 08:00 | Outpatient (CLI) | payer MEDICARE, OTHER | END 2021-04-10 23:59 | disposition home or self-care (01) | LOC: LAB.R 08:00 | PROVIDERS: ATTEND Family Medicine | DX: E03.9 Hypothyroidism, unspecified (principal) | CPT/HCPCS: 84443 ==

== ENCOUNTER 2021-05-27 08:55 | Outpatient (CLI) | payer MEDICARE, OTHER ==
[2021-05-27 09:52] LABS: BASOPHILS % (AUTO) 0.5 %; EOSINOPHILS # (AUTO) 0.1 10^3/uL (0.0-0.7); EOSINOPHILS % (AUTO) 1.9 %; HCT - HEMATOCRIT 44.8 % (37.0-47.0); HGB - HEMOGLOBIN 14.5 g/dL (12.0-16.0); LYMPHOCYTES # (AUTO) 2.4 10^3/uL (1.5-3.5); LYMPHOCYTES % (AUTO) 31.5 %; MEAN CORPUSCULAR HEMOGLOBIN 28.6 pg (27.0-31.0); MEAN CORPUSCULAR HGB CONC 32.4 g/dL (32.0-36.0); MEAN CORPUSCULAR VOLUME 88.4 fL (81.0-99.0); MEAN PLATELET VOLUME 8.4 fL (7.9-10.8); MONOCYTES # (AUTO) 0.4 10^3/uL (0.0-1.0); MONOCYTES % (AUTO) 5.7 %; NEUTROPHILS # (AUTO) 4.5 10^3/uL (1.5-6.6); PLT - PLATELET COUNT 166 10^3/uL (130-450); RED BLOOD COUNT 5.07 10^6/uL (4.20-5.40); RED CELL DISTRIBUTION WIDTH 13.7 % (12.0-15.0); WHITE BLOOD COUNT 7.5 x10^3/uL (4.8-10.8)
[2021-05-27 10:02] LABS: ALBUMIN 3.6 g/dL (3.2-5.5); ALBUMIN/GLOBULIN RATIO 1.5 (1.0-2.2); ALKALINE PHOSPHATASE 68 IU/L (42-121); ALT ALANINE AMINOTRANSFERASE 11 IU/L (10-60); AST ASPARTATE AMINOTRANSFERASE 16 IU/L (10-42); BILIRUBIN,TOTAL 0.9 mg/dL (0.2-1.0); BUN - BLOOD UREA NITROGEN 16 mg/dL (6-20); CALCIUM 9.4 mg/dL (8.5-10.3); CARBON DIOXIDE - CO2 27 mmol/L (21-32); CHLORIDE 103 mmol/L (101-111); CHOL/HDL RATIO 4.3 (<4.4); CHOLESTEROL 175 mg/dL; CREATININE 0.3 mg/dL (0.4-1.0); GFR - MDRD 212 (>89); GLUCOSE 143 mg/dL (70-100); HDL CHOLESTEROL 41 mg/dL; LDL CHOLESTEROL,CALCULATED 90 mg/dL; LDL/HDL RATIO 2.2 (<4.4); POTASSIUM 3.5 mmol/L (3.5-5.0); SODIUM 138 mmol/L (135-145); TRIGLYCERIDES 218 mg/dL; VLDL CHOLESTEROL 44 mg/dL
[2021-05-27 10:30] LABS: THYROID STIMULATING HORMONE 2.41 uIU/mL (0.34-5.60)
[2021-05-27 10:33] LABS: FREE T4 (FREE THYROXINE) 1.57 ng/dL (0.58-1.64)
[2021-05-27 19:54] LABS: ESTIMATED AVERAGE GLUCOSE 140 mg/dL (70-100); HEMOGLOBIN A1c% 6.5 % (4.27-6.07)
== END 2021-05-27 08:56 | disposition home or self-care (01) ==
LOC: LAB.R 08:55
PROVIDERS: ATTEND Family Medicine
DX: E11.9 Type 2 diabetes mellitus without complications (principal); E78.5 Hyperlipidemia, unspecified; E03.9 Hypothyroidism, unspecified
CPT/HCPCS: 80053; 80061; 83036; 83721; 84439; 84443; 85025